=== PATIENT | female | born 1965 | race Caucasian/White ===

== ENCOUNTER 2020-02-29 12:47 | Outpatient (REF) | payer BC, SELFPAY ==
--- NOTE | 2020-02-29 | XR_ITS ---
EXAMINATION: XR SHOULDER, LEFT CLINICAL INFORMATION: Stiffness of left shoulder COMPARISON: None TECHNIQUE: 3 views of the left shoulder. FINDINGS: There is no visible acute fracture, dislocation or subluxation seen. There is a small calcified lesion tip of greater tuberosity likely small avulsion bony fragment, calcific tendinitis or bursitis. The AC joint is normal. XR/XR shoulder LT min 2V IMPRESSION: Tiny calcification tip of the left greater tuberosity. Differential diagnoses includes small bony avulsion fragment, calcific bursitis or tendinitis.
== END 2020-02-29 12:48 | disposition home or self-care (01) ==
LOC: HO.HMGCX 12:47
PROVIDERS: Visit Provider Physician Assistant
DX: M25.60 Stiffness of unspecified joint, not elsewhere classified (principal); M25.512 Pain in left shoulder
CPT/HCPCS: 73030

== ENCOUNTER 2020-07-19 11:36 | Emergency (ER) | payer BC, SELFPAY ==
--- NOTE | ~2020-07-19 | US_ITS ---
EXAMINATION: US VENOUS ULTRASOUND WITH DOPPLER LOWER EXTREMITY, RIGHT CLINICAL INFORMATION: Calf pain COMPARISON: None TECHNIQUE: Ultrasound of the deep veins is performed from the hip to the calf with compression sonography and color and pulse Doppler assessment. Spectral analysis with color-flow imaging is performed. FINDINGS: There is normal venous compression and respiratory variation and augmented flow. The visualized common femoral vein, superficial femoral vein, profunda femoral vein, popliteal vein, and the trifurcation region shows no evidence of deep venous thrombosis. There is no popliteal fossa cyst. US/US venous duplex LE RT IMPRESSION: No DVT demonstrated in the right lower extremity.
[2020-07-19 11:46] VITALS: BP 140/64; PULSE 85; RESP 17; TEMP 36.7; O2SAT 93; BMI 43.9
--- NOTE | 2020-07-19 13:13 | ED.EXTPRO ---
HPI - Extremity Problem General Chief complaint: Extremity Problem Stated complaint: Pain in right calf Time Seen by Provider: 07/19/20 11:41 History of Present Illness HPI Narrative: Patient complains of right lower leg pain when she was walking down stairs and felt a sudden pop and pain in her right lower posterior leg, no numbness no weakness no tingling no shortness of breath no other injury Related Data Home Medications Medication Instructions Recorded Confirmed albuterol sulfate 90 mcg/actuation 2 puff INHALATION Q6H PRN 02/29/20 aerosol inhaler Allergies Allergy/AdvReac Type Severity Reaction Status Date / Time monosodium glutamate Allergy Intermediate ITCHING/HEA Verified 07/19/20 11:45 DACHE Review of Systems Review of Systems: Positive for right lower leg pain Negatives are no fever no chills no dizziness no weakness no fainting no feeling faint no neck pain no chest pain no shortness of breath no abdominal pain no skin rash no numbness weakness or tingling Yes all other systems are reviewed and are negative PMFSH Past Medical History Source: nursing notes reviewed Social History Social History (System 06/29/20 @ 07:31 by Yolande Smith) Advance Directives: No Advance Directives Information Provided: No Physical Exam Vital Signs: Vital Signs: Last Vital Signs Temp 98.0 F 07/19/20 11:46 Pulse 85 07/19/20 11:46 Resp 17 07/19/20 11:46 BP 140/64 H 07/19/20 11:46 Pulse Ox 93 07/19/20 11:46 Body Mass Index 43.9 General appearance no acute distress Head is normocephalic atraumatic Neck is supple and nontender The chest is clear to auscultation bilateral with symmetric equal breath sounds Heart no murmur Abdomen soft nontender Extremities the right leg has tenderness to the posterior calf and posterior knee, skin is intact there is full range of motion in the knee and the ankle there is no significant swelling there is no redness or warmth and neurovascular intact distally Other extremities normal Skin no rash Neuro no gross motor or sensory deficits Course Course Course Narrative: Ultrasound of right lower extremity was done and there was no evidence of DVT or Brantley cyst and patient is discharged to follow with primary care doctor Discharge Plan Discharge Clinical Impression: Muscle strain of right lower leg Patient Disposition: Home, Self-Care Additional Instructions: Our ultrasound did not show any blood clot or any serious abnormality your exam does not show any wound or infection of the skin You very likely pulled a muscle in the back of her calf which will hurt for several weeks Activity as tolerated is fine Return any time any worse condition or any concerns Follow with her doctor if needed and they may send her to physical therapy Tylenol or Motrin for aches and pains Prescriptions: No Action albuterol sulfate [ProAir HFA] 90 mcg/actuation HFA aerosol inhaler 2 puff inhalation Q6H PRNRF: 0 Stand Alone Forms: Work/School Release Interventions: ED Discharge Assessment Last Done: 07/19/20 13:33 Discharge Date/Time: 07/19/20 13:34
== END 2020-07-19 13:34 | disposition home or self-care (01) ==
PROVIDERS: Emergency Provider Emergency Medicine
DX: M79.661 Pain in right lower leg (principal); R60.0 Localized edema
CPT/HCPCS: 93971; 99283

== ENCOUNTER 2020-10-29 10:28 | Emergency (ER) | payer BC, SELFPAY ==
--- NOTE | ~2020-10-29 | CT_ITS ---
EXAMINATION: CERVICAL SPINE CT WITHOUT CONTRAST CLINICAL INFORMATION: Atraumatic worsening neck pain. History of surgery COMPARISON: None. TECHNIQUE: Multidetector volumetric imaging was obtained through the cervical spine without intravenous contrast. Multiplanar reconstructed images in coronal and sagittal orientations were submitted. This CT examination was performed using dose optimization techniques as appropriate, variously including the following: *Automated exposure control *Adjustment of mA and/or kV according to patient size (this includes techniques or standardized protocols for targeted exams where dose is matched to indication/reason for exam; i.e. extremities or head) *Use of iterative reconstruction technique DOSE: 616 mGy-cm FINDINGS: Postsurgical changes of prior C3 C5 ACDF are apparent with solid osseous bridging at the C3-C4 level across the interbody space . Osseous bridging is also suspected at C4-C5. Hardware is intact. There is degenerative ankylosis of C6-C7. Moderate degenerative disc disease is present at C5-C6 with slight anterolisthesis of C5 on C6 (2 mm), likely degenerative in nature. A disco osteophytic bulge at the C5-C6 level is associated with a small left paracentral protrusion, likely producing mass effect upon the left C6 nerve root in this region. There is at least [id number] central canal stenosis at this level. No appreciable neural foraminal stenoses. Vertebral body heights are normal. No fractures of the vertebral bodies or posterior elements. No acute subluxation. The craniocervical and atlantoaxial articulations are normal. There is asymmetric enlargement of the right thyroid lobe with a poorly defined nodule posteriorly that likely measures 2.5 cm in greatest diameter. There is a peripherally calcified nodule in the right thyroid lobe measuring 1.5 cm in diameter. Imaged portions of the lung apices are clear. CT/CT cervical spine wo con IMPRESSION: Moderate degenerative disc disease at C5-C6 with grade 1 anterolisthesis of C5 on C6, a generalized disc bulge, and a left paracentral disc protrusion. The disc protrusion produces mass effect upon the left C6 nerve root. At least [id number]-in-aynovpzi central canal stenosis at this level. Solid osseous fusion at C3 C5 status post ACDF Asymmetric enlargement of the right thyroid lobe with a probable ill-defined 2.5 cm nodule along the margin. A clear fat plane is not seen between this portion of the thyroid in the adjacent esophagus. Follow-up assessment of the thyroid gland with ultrasound is advised.
--- NOTE | ~2020-10-29 | US_ITS ---
EXAMINATION: US THYROID CLINICAL INFORMATION: Thyroid nodule. COMPARISON: CT cervical spine from 10/29/2020. TECHNIQUE: Linear transducer grayscale and color Doppler examination with attention to the region of the thyroid. FINDINGS: SIZE: Measurements of the thyroid lobes and nodules are given in sagittal, anteroposterior and transverse dimensions respectively. Right Thyroid Lobe: 4.9 x 3.6 x 2.6 cm, volume 23.8 mL. Left Thyroid Lobe: 4.4 x 1.8 x 1.9 cm, volume 17.5 mL. Isthmus: 0.5 cm in maximum AP dimension. THYROID PARENCHYMA AND NODULES: Thyroid gland is heterogeneous on the right due to presence of nodules. Otherwise, the gland has normal echotexture and normal vascularity. 1.1 x 1 x 1.4 cm rim calcified, smoothly marginated nodule of the right mid to lower pole. ACR TI-RADS score of 4 points, TR4. 2 x 1.9 x 2.2 cm solid, isoechoic, smoothly marginated noncalcified nodule of the right lower pole has ACR TI-RADS score of 3 points, TR3. An adjacent 1.4 x 1.4 x 1.2 cm isoechoic nodule in the posterior lower pole has ACR TI-RADS score of 3 points, TR3. NODES: No lymphadenopathy is seen in the tissue surrounding the thyroid gland. US/US thyroid IMPRESSION: There are a few nodules in the large right thyroid lobe for which ultrasound follow-up in 12 months is recommended.
[2020-10-29 11:38] VITALS: BP 145/83; PULSE 104; RESP 17; TEMP 37.2; O2SAT 95; BMI 44.5
[2020-10-29] MEDS: NaPROXEN 500 MG TABLET PO (12:43)
[2020-10-29] MEDS: diazePAM 5 MG TABLET PO (12:44)
--- NOTE | 2020-10-29 14:07 | ED.NECK ---
HPI - Neck Pain/Injury General Chief Complaint: General Medical Stated Complaint: diff breathing due to neck issue? Time Seen by Provider: 10/29/20 11:41 Source: patient Mode of arrival: ambulatory Limitations: no limitations History of Present Illness HPI Narrative: 55-year-old female with a history of cervical disc disease, status post C3-4-5 discectomy and fusion in 10/2007 presenting to the ED with complaints of acute on chronic neck pain radiating down to her upper back that started while she was finish passing her meds at work. 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 She reports she also feels like her neck is swollen. She denies any falls, trauma, dizziness, headaches, dizziness, change in vision, nausea/vomiting, chest pain, dyspnea on exertion, orthopnea, paresthesias, abdominal pain, lower back pain, dysuria, hematuria, black or bloody stools, constipation, recent travel or sick contacts, any focal weakness or general weakness or any other symptoms complaints or concerns at this time. 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 Radiation: upper back Severity: moderate and constant Quality: aching Duration: constant and progressively worsening Relieving factors: none Exacerbating factors: movement of neck Context: turning/bending Associated symptoms: none Treatments prior to arrival: none Related Data Home Medications Medication Instructions Recorded Confirmed albuterol sulfate 90 mcg/actuation 2 puff INHALATION Q6H PRN 02/29/20 aerosol inhaler (ProAir HFA) Previous Rx's Medication Instructions Recorded acetaminophen 500 mg tablet 1,000 mg PO QID PRN #14 tab 10/29/20 (Tylenol Extra Strength) diazepam 10 mg tablet (Valium) 10 mg PO TID PRN #10 tab 10/29/20 naproxen 500 mg tablet 500 mg PO BID PRN #10 tab 10/29/20 oxycodone 5 mg tablet 5 mg PO Q6H PRN #14 tab 10/29/20 Allergies Allergy/AdvReac Type Severity Reaction Status Date / Time monosodium glutamate Allergy Intermediate ITCHING/HEA Verified 07/19/20 11:45 DACHE Review of Systems Review of Systems: Constitutional : No trauma, No Weight loss, No Fever, No Chills, ENT/Mouth : No Hearing loss, No Ear Pain, No Nasal Congestion, No Sinus Pain, No Hoarseness, No sore throat, No Rhinorrhea, No Swallowing Difficulty Cardiovascular : No Chest Pain, No SOB Respiratory : No Cough, No Dyspnea Gastrointestinal : No Nausea, No Vomiting, No Diarrhea, No abdominal Pain, No Hematochezia, No Melena Genitourinary : No Dysuria, No Urinary Frequency, No Hematuria, No Urinary or Bowel Incontinence/retention Musculoskeletal : + Neck pain, No Back pain, No joint stiffness, No joint swelling Skin : No Skin Lesions, No rash or signs of infection Neuro : nO Tingling to b/l arms/legs, No Weakness, No radiation, No Numbness, No headache, no loss of bowel or bladder incontinence, no saddle anesthesia Denies history of IV drug usage. Yes all other systems are reviewed and are negative [facility] Past Medical History Attestation statement: The following information was validated with the patient. Social History Social History Advance Directives: No Advance Directives Information Provided: No Physical Exam Vital Signs: Vital Signs: Last Vital Signs Temp 98.0 F 10/29/20 14:38 Pulse 75 10/29/20 14:38 Resp 20 10/29/20 14:38 BP 147/69 H 10/29/20 14:38 Pulse Ox 97 10/29/20 14:38 Body Mass Index 44.5 vital signs have been reviewed as normal and appeared to be correct. Blood pressure hypertensive 145/83 Heart rate tachycardic at 104 Respiration rate normal. Temperature normal. Oxygen saturation normal. Appearance: Alert. Oriented X3. No acute distress. Head: Normal external exam. Normocephalic. Atraumatic. Eyes: PERRLA. EOMI. Conjunctiva and sclera normal. Eyelids normal. ENT: Pharynx normal. Uvula midline. Moist mucous membranes. No trismus noted. No drooling noted. No muffled voice noted. Neck: Normal inspection. Neck supple. FROM. No adenopathy. Thyroid Normal. Trachea midline. No meningeal signs. No neck mass noted. Tender to palpation of bilateral paracervical musculature and mid cervical tenderness. No step-offs or deformities noted. Patient neuro intact bilaterally and distally on all 4 extremities. Reflexes intact bilaterally and distally in all 4 extremities. No rashes/lesion/induration/fluctuance or signs of infection noted. No edema noted. CVS: Normal heart rate and rhythm. Heart sound normal. No murmurs noted. Pulses normal throughout. Respiratory: No respiratory distress. Painless inspiration. Breath sounds normal. No wheezes/rales/rhonchi noted. Chest nontender. No accessory muscle usage noted or decreased air movement noted. Back: Full range of motion noted. No obvious deformities, or edema. Full ROM in back and lower extremities. Skin: Skin warm and dry. Normal skin color. Normal skin turgor. No rashes/lesions/lacerations noted. Extremities: Extremities exhibit normal range of motion. Extremities nontender. Neuro: Oriented X 3. No motor deficit. No sensory deficit. Reflexes normal. Normal steady gait. Course Course Course Narrative: 12:15pm - Pt c likely muscular pain, but could be herniated disc. Neuro exam shows no deficits. Not c/w vascular etiology, perivertebral / other soft tissue neck / airway infection, or spinal fx / process. Although due to patient reporting that this is acute on chronic back pain will obtain a CT scan of cervical spine to evaluate for any acute processes. MRI not indicated at this time due to no neural deficits or red flags. Will provide 500 mg of naproxen and 5 mg of Valium then re-evaluate. Reevaluation(s) Reevaluation #1: - patient ended up having a CT scan of cervical spine which revealed chronic changes to her cervical spine no acute processes were noted to the cervical spine although incidentally a right thyroid lobe with a probable 2.5 cm nodule along the margin was noted and they recommended an ultrasound of her thyroid gland - therefore labs were obtained at this time and patient has an elevated white blood cell count 06408. RBC 6.15. Hemoglobin 18. Hematocrit 53. 32. Random glucose 164. Total bilirubin 1.1. Otherwise all other labs are within normal limits including TSH level. - thyroid ultrasound obtained and revealed that there are a few nodules and the large right thyroid lobe for which ultrasound follow-up in 12 months is recommended otherwise no other acute processes were noted. Therefore printed out the results of the CT scan of the cervical spine and the ultrasound of the thyroid and handed to the patient instructed her that she will need to follow up with her primary care provider regarding this. Otherwise will DC home with symptomatic treatment for the patient's acute on chronic neck pain and instructions return if any new or worsening symptoms. Patient understands agrees with this plan. Time: 16:42 [facility] - Neck Pain/Injury Medical Records Attestation: I reviewed the patient's medical records. Lab Data Attestation: I reviewed the patient's lab results. Result diagrams: 10/29/20 15:36 10/29/20 15:36 Labs: Lab Results 10/29/20 10/29/20 10/29/20 Range/Units 15:36 15:36 15:36 WBC 11.1 H (4.8-10.8) X10*3/uL RBC 6.15 H (4.20-5.50) X10*6/uL Hgb 18.0 H (12.0-16.0) g/dl Hct 53.7 H (37-47) % MCV 87.3 (80-98) fL MCH 29.3 (27.0-33.0) pg MCHC 33.5 (31.0-35.0) g/dl RDW 12.5 (11.0-16.0) % Plt Count 257 (160-400) X10*3/uL MPV 9.2 L (9.4-12.3) fL Immature Gran % (Auto) 0.4 (0.0-0.4) % Neut % (Auto) 60.5 (45-73) % Lymph % (Auto) 31.9 (20-40) % Ransom % (Auto) 5.8 (2-11) % Eos % (Auto) 0.9 (0-4) % Baso % (Auto) 0.5 (0-2) % Lymph # (Auto) 3.5 (1.2-4.9) X10*3/uL Ransom # (Auto) 0.6 (0.1-1.2) X10*3/uL Eos # (Auto) 0.1 (0.0-0.4) X10*3/uL Baso # (Auto) 0.1 (0.0-0.2) X10*3/uL Abs Immat Gran (auto) 0.04 H (0.00-0.03) X10*3/uL Absolute Neuts (auto) 6.7 (2.0-8.3) X10*3/uL Absolute Nucleated RBC 0.000 (0.0-0.012) X10*3/uL Nucleated RBC % (auto) 0.0 (0.0-0.2) /100WBC PT 11.0 (9.9-13.0) SEC INR 1.0 (0.9-1.1) Sodium 142 (135-145) mmol/L Potassium 3.9 (3.3-5.1) mmol/L Chloride 100 (96-108) mmol/L Carbon Dioxide 32 H (22-29) mmol/L Anion Gap 14 (12-20) BUN 11 (9-16) mg/dL Creatinine 0.79 (0.5-1.4) mg/dL Estim Creat Clear Calc 80.2 Estimated GFR > 60 Random Glucose 164 H (60-115) mg/dL Calcium 10.0 (8.4-10.2) mg/dL Magnesium 1.7 (1.6-2.6) mg/dL Total Bilirubin 1.1 H (0.0-1.0) mg/dL AST 14 (5-31) U/L ALT 22 (0-31) U/L Alkaline Phosphatase 95 (39-117) U/L Total Protein 7.3 (6.5-8.0) g/dL Albumin 4.5 (3.5-5.0) g/dL TSH 1.25 (0.32-4.0) uIU/mL Imaging Data CT scan of cervical spine without contrast: Attestation: I personally reviewed and interpreted this imaging study as follows: Radiologist's impression: FINDINGS: Postsurgical changes of prior C3 C5 ACDF are apparent with solid osseous bridging at the C3-C4 level across the interbody space . Osseous bridging is also suspected at C4-C5. Hardware is intact. There is degenerative ankylosis of C6-C7. Moderate degenerative disc disease is present at C5-C6 with slight anterolisthesis of C5 on C6 (2 mm), likely degenerative in nature. A disco osteophytic bulge at the C5-C6 level is associated with a small left paracentral protrusion, likely producing mass effect upon the left C6 nerve root in this region. There is at least [id number] central canal stenosis at this level. No appreciable neural foraminal stenoses. Vertebral body heights are normal. No fractures of the vertebral bodies or posterior elements. No acute subluxation. The craniocervical and atlantoaxial articulations are normal. There is asymmetric enlargement of the right thyroid lobe with a poorly defined nodule posteriorly that likely measures 2.5 cm in greatest diameter. There is a peripherally calcified nodule in the right thyroid lobe measuring 1.5 cm in diameter. Imaged portions of the lung apices are clear. CT/CT cervical spine wo con IMPRESSION: Moderate degenerative disc disease at C5-C6 with grade 1 anterolisthesis of C5 on C6, a generalized disc bulge, and a left paracentral disc protrusion. The disc protrusion produces mass effect upon the left C6 nerve root. At least [id number] central canal stenosis at this level. ? Solid osseous fusion at C3 C5 status post ACDF ? Asymmetric enlargement of the right thyroid lobe with a probable ill-defined 2.5 cm nodule along the margin. A clear fat plane is not seen between this portion of the thyroid in the adjacent esophagus. Follow-up assessment of the thyroid gland with ultrasound is advised. Thyroid ultrasound: Attestation: I personally reviewed and interpreted this imaging study as follows: Radiologist's impression: FINDINGS: ? SIZE: Measurements of the thyroid lobes and nodules are given in sagittal, anteroposterior and transverse dimensions respectively. Right Thyroid Lobe: 4.9 x 3.6 x 2.6 cm, volume 23.8 mL. Left Thyroid Lobe: 4.4 x 1.8 x 1.9 cm, volume 17.5 mL. Isthmus: 0.5 cm in maximum AP dimension. THYROID PARENCHYMA AND NODULES: Thyroid gland is heterogeneous on the right due to presence of nodules. Otherwise, the gland has normal echotexture and normal vascularity. 1.1 x 1 x 1.4 cm rim calcified, smoothly marginated nodule of the right mid to lower pole. ACR TI-RADS score of 4 points, TR4. 2 x 1.9 x 2.2 cm solid, isoechoic, smoothly marginated noncalcified nodule of the right lower pole has ACR TI-RADS score of 3 points, TR3. An adjacent 1.4 x 1.4 x 1.2 cm isoechoic nodule in the posterior lower pole has ACR TI-RADS score of 3 points, TR3. NODES: No lymphadenopathy is seen in the tissue surrounding the thyroid gland. US/US thyroid IMPRESSION: There are a few nodules in the large right thyroid lobe for which ultrasound follow-up in 12 months is recommended. ? ? Discharge Plan Discharge Clinical Impression: Right thyroid nodule, DDD (degenerative disc disease), cervical, Anterolisthesis, Bulging discs Patient Disposition: Home, Self-Care Instructions: Thyroid Nodules (ED), Cervical Disc Herniation (ED), Degenerative Disc Disease (ED), Chronic Neck Pain (DC) Prescriptions: New acetaminophen [Tylenol Extra Strength] 500 mg tablet 1,000 mg PO QID PRN (Reason: fever or pain) Qty: 14 RF: 0 diazepam [Valium] 10 mg tablet 10 mg PO TID PRN (Reason: muscle spasm) Qty: 10 RF: 0 naproxen 500 mg tablet 500 mg PO BID PRN (Reason: pain) Qty: 10 RF: 0 oxycodone 5 mg tablet 5 mg PO Q6H PRN (Reason: pain) Qty: 14 RF: 0 No Action albuterol sulfate [ProAir HFA] 90 mcg/actuation HFA aerosol inhaler 2 puff inhalation Q6H PRNRF: 0 Referrals: Graciela Mg MD [Primary Care Provider] - 2 days Stand Alone Forms: Work/School Release Print Language: Kosovan
[2020-10-29 14:38] VITALS: BP 147/69; PULSE 75; RESP 20; TEMP 36.7; O2SAT 97
[2020-10-29 15:58] LABS: MANUAL DIFF FLAG NO
[2020-10-29 15:59] LABS: Basophils Absolute Auto 0.1 X10*3/uL (0.0-0.2); Basophils Percent Auto 0.5 % (0-2); Eosinophils Absolute Auto 0.1 X10*3/uL (0.0-0.4); Eosinophils Percent Auto 0.9 % (0-4); Hematocrit 53.7 % (37-47); Imm Gran Abs Auto 0.04 X10*3/uL (0.00-0.03); Imm Gran Pct Auto 0.4 % (0.0-0.4); Lymphocytes Absolute Auto 3.5 X10*3/uL (1.2-4.9); Lymphocytes Percent Auto 31.9 % (20-40); Mean Corpuscular HGB Conc 33.5 g/dl (31.0-35.0); Mean Corpuscular Hemoglobin 29.3 pg (27.0-33.0); Mean Corpuscular Volume 87.3 fL (80-98); Mean Platelet Volume 9.2 fL (9.4-12.3); Monocytes Absolute Auto 0.6 X10*3/uL (0.1-1.2); Monocytes Percent Auto 5.8 % (2-11); Neutrophils Absolute Auto 6.7 X10*3/uL (2.0-8.3); Neutrophils Percent Auto 60.5 % (45-73); Platelet Count 257 X10*3/uL (160-400); Red Blood Count 6.15 X10*6/uL (4.20-5.50); Red Cell Distribution Width 12.5 % (11.0-16.0); White Blood Count 11.1 X10*3/uL (4.8-10.8)
[2020-10-29 16:19] LABS: Alanine Aminotransferase 22 U/L (0-31); Albumin Level 4.5 g/dL (3.5-5.0); Alkaline Phosphatase 95 U/L (39-117); Anion Gap 14 (12-20); Aspartate Amino Transferase 14 U/L (5-31); Bilirubin Total 1.1 mg/dL (0.0-1.0); Blood Urea Nitrogen 11 mg/dL (9-16); Carbon Dioxide 32 mmol/L (22-29); Chloride 100 mmol/L (96-108); Creatinine Clr Calc Pharmacy 80.2; Estimated Glomerular Filt Rate > 60; Glucose Random 164 mg/dL (60-115); Magnesium 1.7 mg/dL (1.6-2.6); Potassium 3.9 mmol/L (3.3-5.1); Sodium 142 mmol/L (135-145); Total Protein 7.3 g/dL (6.5-8.0)
[2020-10-29 16:41] LABS: TSH reflex Free T4 1.25 uIU/mL (0.32-4.0)
[2020-10-29] MEDS: oxyCODONE HCl Immed Release 5 MG TABLET PO (17:19)
--- NOTE | 2020-10-29 17:20 | PC.NURSE ---
Pt had ride home. Medicated for pain and discharged home.
== END 2020-10-29 17:21 | disposition home or self-care (01) ==
PROVIDERS: Physician Assistant Medical; Emergency Provider Emergency Medicine; PCP Internal Medicine
DX: M50.323 Other cervical disc degeneration at C6-C7 level (principal); M50.222 Other cervical disc displacement at C5-C6 level; E04.2 Nontoxic multinodular goiter; Z98.890 Other specified postprocedural states; E11.9 Type 2 diabetes mellitus without complications; I10 Essential (primary) hypertension; F17.210 Nicotine dependence, cigarettes, uncomplicated
CPT/HCPCS: 36415; 72125; 76536; 80053; 83735; 84443; 85025; 85610; 99284

== ENCOUNTER 2020-11-02 08:51 | Outpatient (REF) | payer BC, SELFPAY ==
[2020-11-02 12:03] LABS: Alanine Aminotransferase 20 U/L (0-31); Albumin Level 4.5 g/dL (3.5-5.0); Alkaline Phosphatase 94 U/L (39-117); Anion Gap 18 (12-20); Aspartate Amino Transferase 16 U/L (5-31); Blood Urea Nitrogen 11 mg/dL (9-16); Calcium 9.9 mg/dL (8.4-10.2); Carbon Dioxide 27 mmol/L (22-29); Chloride 98 mmol/L (96-108); Cholesterol 217 mg/dL; Estimated Glomerular Filt Rate > 60; Glucose Fasting 231 mg/dL (60-99); HDL Cholesterol 56 mg/dL; Iron 124 mcg/dL (30-160); LDL Cholesterol Calculated 140 mg/dl; Percent Iron Saturation 35 % (15-50); Potassium 4.6 mmol/L (3.3-5.1); Sodium 138 mmol/L (135-145); Total Iron Binding Capacity 358 mcg/dL (228-428); Total Protein 7.1 g/dL (6.5-8.0); Triglycerides 107 mg/dL; Unsaturated Iron Binding 234 ug/dL
[2020-11-02 12:59] LABS: Estimated Average Glucose 217 mg/dL; Hemoglobin A1c % 9.2 %
== END 2020-11-02 08:52 | disposition home or self-care (01) ==
LOC: HO.HMGCLDS 08:51
PROVIDERS: PCP Internal Medicine; Visit Provider Internal Medicine
DX: R73.9 Hyperglycemia, unspecified (principal); D75.1 Secondary polycythemia
CPT/HCPCS: 36415; 80053; 80061; 83036; 83540

== ENCOUNTER 2020-11-18 15:28 | Outpatient (REF) | payer BC, SELFPAY ==
--- NOTE | ~2020-11-18 | CT_ITS ---
EXAMINATION: CT CHEST SCREENING CLINICAL INFORMATION: Current smoker. [id number]-[id number] history. COMPARISON: Previous chest x-rays most recent June 2019 TECHNIQUE: Multidetector volumetric CT imaging of the chest is performed without contrast using low-dose technique. Additional 2-D coronal and sagittal reformatted images and axial 3-D maximum intensity projection (MIP) images are generated on the CT workstation. This CT examination was performed using dose optimization techniques as appropriate, variously including the following: *Automated exposure control *Adjustment of mA and/or kV according to patient size (this includes techniques or standardized protocols for targeted exams where dose is matched to indication/reason for exam; i.e. extremities or head) *Use of iterative reconstruction technique DLP: 94 mGy-cm FINDINGS: LUNGS: There is a tiny 1-2 mm peripheral or subpleural right upper lobe nodule axial image 122 series 6 and right lower lobe nodule adjacent to the diaphragmatic pleural surface axial image 332 series 6. There is scarring or subsegmental atelectasis in the right middle lobe and lingula. The lungs are otherwise clear. No evidence of emphysema, interstitial lung disease or bronchiectasis is seen. No endobronchial or endotracheal lesion is seen. MEDIASTINUM: There is a subcentimeter right thyroid nodule with calcified wall. The mediastinum is otherwise normal. PLEURA: There is no pleural effusion. No pleural mass or thickening. AXILLA: No lymphadenopathy. UPPER ABDOMEN: Unremarkable. OSSEOUS STRUCTURES: Unremarkable. CT/CT lung screening IMPRESSION: Small pulmonary nodules or micronodules. Small right thyroid nodule with wall calcification. No imaging followup is indicated. ASSESSMENT: Lung-RADS category 2: Benign. RECOMMENDATION: Annual low-dose chest CT followup recommended.
== END 2020-11-18 15:29 | disposition home or self-care (01) ==
LOC: HO.CT 15:28
PROVIDERS: Visit Provider Surgery
DX: Z12.2 Encounter for screening for malignant neoplasm of respiratory organs (principal); F17.210 Nicotine dependence, cigarettes, uncomplicated
CPT/HCPCS: 71271; G0296

== ENCOUNTER 2020-12-20 08:41 | Outpatient (REF) | payer BC, SELFPAY ==
--- NOTE | ~2020-12-20 | MM_ITS ---
EXAMINATION: MM SCREENING DIGITAL BREAST TOMOSYNTHESIS, BILATERAL CLINICAL INFORMATION: Screening. Asymptomatic. The lifetime risk of breast cancer based on the Tyrer-Cuzick Model is 5%. COMPARISON: Mammography: 03/22/2015, 03/12/2014 TECHNIQUE: Digital breast tomosynthesis is performed in both the craniocaudal and mediolateral oblique views along with computer-aided detection (CAD). Synthesized 2D images are generated from the tomosynthesis. FINDINGS: There are scattered areas of fibroglandular density (ACR BI-RADS breast composition Category b). There are no significant masses, abnormal calcifications, or other abnormalities. There is fine fibronodular parenchymal pattern similar to prior studies. No significant changes. MM/MM tomosynthesis screening BI IMPRESSION: No mammographic evidence of malignancy. ASSESSMENT: BI-RADS 1: Negative RECOMMENDATION: Routine annual mammography screening. This patient's information was entered into a reminder system with a target due date for their next mammogram.
== END 2020-12-20 08:42 | disposition home or self-care (01) ==
LOC: HO.MAMMO 08:41
PROVIDERS: Visit Provider Internal Medicine
DX: Z12.31 Encounter for screening mammogram for malignant neoplasm of breast (principal)
CPT/HCPCS: 77063; 77067

== ENCOUNTER 2021-02-20 07:13 | Outpatient (REF) | payer BC, SELFPAY ==
[2021-02-20 11:36] LABS: Estimated Average Glucose 131 mg/dL; Hemoglobin A1c % 6.2 %
[2021-02-20 11:38] LABS: Creatinine Urine 32.38 mg/dL; Microalbum/Creatinine Ratio Ur 382.9 ug/mg cr
[2021-02-20 12:01] LABS: Alanine Aminotransferase 22 U/L (0-31); Albumin Level 4.6 g/dL (3.5-5.0); Alkaline Phosphatase 75 U/L (39-117); Anion Gap 15 (12-20); Aspartate Amino Transferase 15 U/L (5-31); Bilirubin Total 0.9 mg/dL (0.0-1.0); Blood Urea Nitrogen 15 mg/dL (9-16); Calcium 9.9 mg/dL (8.4-10.2); Carbon Dioxide 27 mmol/L (22-29); Chloride 103 mmol/L (96-108); Cholesterol 184 mg/dL; Estimated Glomerular Filt Rate > 60; Glucose Fasting 128 mg/dL (60-99); HDL Cholesterol 41 mg/dL; LDL Cholesterol Calculated 115 mg/dl; Potassium 4.5 mmol/L (3.3-5.1); Sodium 140 mmol/L (135-145); Total Protein 7.4 g/dL (6.5-8.0); Triglycerides 144 mg/dL
[2021-02-20 12:20] LABS: TSH reflex Free T4 1.26 uIU/mL (0.32-4.0)
== END 2021-02-20 07:14 | disposition home or self-care (01) ==
LOC: HO.HMGCLDS 07:13
PROVIDERS: PCP Internal Medicine; Visit Provider Internal Medicine
DX: E11.9 Type 2 diabetes mellitus without complications (principal); M47.812 Spondylosis without myelopathy or radiculopathy, cervical region; I10 Essential (primary) hypertension; E66.9 Obesity, unspecified; E04.1 Nontoxic single thyroid nodule
CPT/HCPCS: 36415; 80053; 80061; 82043; 83036; 84443

== ENCOUNTER → 2021-03-07 10:41 | Outpatient (REF) | payer BC, SELFPAY | LOC: HO.SL 10:41 | PROVIDERS: PCP Internal Medicine; Visit Provider Neurological Surgery | DX: G47.33 Obstructive sleep apnea (adult) (pediatric) (principal) | CPT/HCPCS: 95806 ==

== ENCOUNTER 2021-04-17 09:06 | Outpatient (REF) | payer BC, SELFPAY ==
--- NOTE | ~2021-04-17 | XR_ITS ---
EXAMINATION: XR HAND, RIGHT CLINICAL INFORMATION: Osteoarthritis COMPARISON: None TECHNIQUE: PA, lateral, and oblique views of the right hand. FINDINGS: Ulna negative variance. Mild distal radioulnar joint arthritis. Mild arthritis in some of the interphalangeal joints of the fingers, more prominent in the fifth PIP joint. Small calcification/ossification along the ulnar aspect of the fourth proximal phalanx head, appears chronic. No acute fracture is otherwise seen. XR/XR hand RT min 3V IMPRESSION: Mild arthritis. This includes mild distal radioulnar joint arthritis. See details above.
== END 2021-04-17 09:07 | disposition home or self-care (01) ==
LOC: HO.HMGCX 09:06
PROVIDERS: Visit Provider Internal Medicine
DX: M19.042 Primary osteoarthritis, left hand (principal)
CPT/HCPCS: 73130

== ENCOUNTER 2021-05-11 09:00 | Outpatient (RCR) | payer BC, SELFPAY ==
--- NOTE | 2021-03-10 12:35 | MHC.PT.EP ---
[facility] [place] Office [place] Office [place] Office [address] Elise Blanton [address] [phone] F: [phone] F: [phone] F: [phone] F: [phone] Physical Therapy Plan of Care Date of Evaluation: Date of Surgery: Diagnosis: cervical spondylosis Assessment: Patient is a 55 year old R handed female who presents with s/s consistent with cervical spondylosis. 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 Patient past medical history includes ACDF and DM. Current impairments include pain, posture, ROM, strength, activity tolerance and functional mobility. Functional limitations include decreased ability to sleep, lift, carry, push, pull, reach overhead, and work nursing duties. Patient is motivated with good rehab potential. Skilled PT will address impairments and functional limitations in order to achieve goals. Frequency and Duration: The patient will be seen 2x/week for 4 weeks Short Term Goals: I with HEP - 2 weeks Able to sleep, wake up with less than 3/10 pain - 2 weeks Vulcanized Fiber Unit Operator Goals: Rotation > 45 to R, 55 to L - 4 weeks MT/LT strength 4/5 grossly - 4 weeks min pec tightness - 4 weeks ER strength 4-/5 b/l - 4 weeks NPDI 16% or better - 4 weeks Treatment Plan: Modalities to reduce pain, spasms and effusion. Manual therapy to restore motion and function. Therapeutic exercise to improve strength and flexibility. Neuromuscular re-education for posture and balance. Therapeutic activities to return to functional activities of daily living. Electronically signed by: Adrian Chery, PT Please sign and return to therapist. Thank you for your referral.
--- NOTE | 2021-11-09 08:30 | MHC.PT.DC ---
[facility] [place] Office [place] Office [place] Office [address] Elise Blanton [address] [phone] F: [phone] F: [phone] F: [phone] F: [phone] Physical Therapy Discharge Report Diagnosis: cervical spondylosis Date of Surgery: Date of Evaluation: 03/10/21 Date of Discharge: 06/03/21 Treatments to Date: 9 Cancellations to Date: 0 No Shows to Date: 0 Discharge Status: Improved Function Independent with HEP Discharge Summary: 05/11/21: pt progressed over the course of skilled PT with less s/s and improved ROM. she is I with HEP. less cervical pain (3/10) with sleep. min pec tightness and ER strength is 4-/5 b/l. She is I with HEP and appropriate to d/c to HEP at this time. I will keep her chart open for 30 days barring any setbacks we will officially d/c it at that time 05/05/21: increased s/s at this time. but starting meloxicam again yesterday. we will monitor this as we tentatively plan for d/c next week. 04/28/21: pt with much less s/s overall, improving ability to manage s/s. compliant with HEP. we will plan to d/c to HEP in 2 visits barring any setbacks. 04/21/21: pt with less pain overall. notes x-rays on hand show OA. progressed with UBE with no adverse reactions. 04/13/21: pt progressing well except for R hand, decreased strength and performance of fine motor skills. but improved tissue elasticity and reduced tissue tension of b/l LS and UT 04/07/21: slow progress thus far in PT. Improved AROM rotation but goals not met. we will continue to progress as tolerated with respect to co-morbidities and thumb pain. 03/29/21: pt noting passing of sister yesterday. She was somewhat stressed and distant during exercise. We held on progression. Reviwed HEP. 03/27/21: pt progressing well with skilled PT. added some postural stretching and educated on postural concepts with PT ex. updated HEP. 03/15/21: pt with min s/s to finish but she did have PACE yesterday. we updated HEP and will continue to monitor response to intervention. Patient is a 55 year old R handed female who presents with s/s consistent with cervical spondylosis. 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 Patient past medical history includes ACDF and DM. Current impairments include pain, posture, ROM, strength, activity tolerance and functional mobility. Functional limitations include decreased ability to sleep, lift, carry, push, pull, reach overhead, and work nursing duties. Patient is motivated with good rehab potential. Skilled PT will address impairments and functional limitations in order to achieve goals. Electronically signed by: Adrian Chery, PT Please sign and return to therapist. Thank you for your referral.
== END 2021-11-17 13:06 | disposition home or self-care (01) ==
LOC: HO.PTCHIC 09:00
PROVIDERS: PCP Internal Medicine; Visit Provider Internal Medicine
DX: M47.812 Spondylosis without myelopathy or radiculopathy, cervical region (principal)
CPT/HCPCS: 97110; 97140; 97162

== ENCOUNTER 2021-05-16 06:39 | Outpatient (REF) | payer BC, SELFPAY ==
[2021-05-16 12:02] LABS: Alanine Aminotransferase 17 U/L (0-31); Albumin Level 4.4 g/dL (3.5-5.0); Alkaline Phosphatase 73 U/L (39-117); Anion Gap 14 (12-20); Aspartate Amino Transferase 15 U/L (5-31); Bilirubin Total 0.8 mg/dL (0.0-1.0); Blood Urea Nitrogen 16 mg/dL (9-16); Calcium 9.8 mg/dL (8.4-10.2); Carbon Dioxide 28 mmol/L (22-29); Chloride 104 mmol/L (96-108); Cholesterol 169 mg/dL; Estimated Glomerular Filt Rate > 60; Glucose Fasting 105 mg/dL (60-99); HDL Cholesterol 43 mg/dL; LDL Cholesterol Calculated 108 mg/dl; Potassium 4.9 mmol/L (3.3-5.1); Sodium 141 mmol/L (135-145); Total Protein 7.1 g/dL (6.5-8.0); Triglycerides 94 mg/dL
[2021-05-16 12:13] LABS: Estimated Average Glucose 108 mg/dL; Hemoglobin A1C 149.6307 umol/L; Hemoglobin A1c % 5.4 %
[2021-05-16 12:18] LABS: Microalbum/Creatinine Ratio Ur 379.7 ug/mg cr
[2021-05-16 12:41] LABS: Erythrocyte Sedimentation Rate 6 MM/HR (0-20)
== END 2021-05-16 06:40 | disposition home or self-care (01) ==
LOC: HO.HMGCLDS 06:39
PROVIDERS: Visit Provider Internal Medicine
DX: E11.65 Type 2 diabetes mellitus with hyperglycemia (principal); M19.042 Primary osteoarthritis, left hand
CPT/HCPCS: 36415; 80053; 80061; 82043; 83036; 85652

== ENCOUNTER → 2021-06-07 12:02 | Outpatient (BNVA) | payer BC, SELFPAY | PROVIDERS: PCP Internal Medicine; Visit Provider Physician Assistant | DX: Z13.89 Encounter for screening for other disorder (principal) ==

== ENCOUNTER 2021-06-14 08:50 | Outpatient (REF) | payer BC, SELFPAY ==
--- NOTE | ~2021-06-14 | US_ITS ---
EXAMINATION: US THYROID CLINICAL INFORMATION: Nontoxic single thyroid nodule. COMPARISON: Ultrasound soft tissue head/neck thyroid dated 10/29/[address] October 2020. TECHNIQUE: Linear transducer grayscale and color Doppler examination with attention to the region of the thyroid. FINDINGS: SIZE: Measurements of the thyroid lobes and nodules are given in sagittal, anteroposterior and transverse dimensions respectively. The right lobe and isthmus are enlarged. The left lobe is upper normal in size. Right Thyroid Lobe: 5.60 x 4.21 x 2.51 cm, volume 31.1 mL. Previously 4.91 x 3.55 x 2.61 cm, volume 23.8 mL. Parenchyma: The gland echotexture is heterogeneous. Thyroid vascularity is normal. Left Thyroid Lobe: 5.09 x 2.19 x 1.64 cm, volume 9.57 mL. Previously 4.38 x 1.77 x 1.86 cm, volume 7.52 mL. Parenchyma: The gland echotexture is homogeneous. Thyroid vascularity is normal. Isthmus: 0.80 cm in maximum AP dimension. Previously 0.47 cm. Estimated total number of nodules greater than or equal to 1 cm: 3. Examiner Rating Clerk nodules are described as follows: 1. Location: Right mid. Size: 3.4 x 2.0 x 2.2 cm, volume 7.8 mL. Previously: Previously measured as 2 nodules measuring 1.1 x 1 x 1.5 cm in 2 x 1.9 x 2.2 cm Nodule characteristics: Composition: Solid (2). Echogenicity: Hyperechoic (1). Shape: Not taller than wide (0). Margins: Smooth (0). Echogenic Foci: None (0). ACR TI-RADS total points: 3 ACR TI-RADS category: 3 2. Location: Right inferior. Size: 1.4 x 1.1 x 1.3 cm, volume 1.0 mL. Previously: 1.1 x 1.0 x 1.45 cm, volume 0.84 mL. Nodule characteristics: Composition: Cannot be determined (2). Echogenicity: Cannot be determined (1). Shape: Not taller than wide (0). Margins: Smooth (0). Echogenic Foci: Peripheral calcifications (2). ACR TI-RADS total points: 5 Previous: 7 ACR TI-RADS category: 4 Previous: 5 Significant change in size (>/= 20% in 2 dimensions and minimal increase of 2 mm or 50% or greater increase in volume): Change in features: Change in ACR TI-RADS risk category: 3. Location: Left inferior question newly appreciated nodule versus area of gland heterogeneity.. Size: 0.93 x 1.1 x 0.78 cm, volume 0.42 mL. Previously: Not seen on the previous study. Nodule characteristics: Composition: Solid (2). Echogenicity: Hypoechoic (2). Shape: Taller than wide (3). Margins: Smooth (0). Echogenic Foci: None (0). ACR TI-RADS total points: 7 ACR TI-RADS category: 5 NODES: No lymphadenopathy is seen in the tissue surrounding the thyroid gland. US/US thyroid IMPRESSION: Enlarged heterogeneous right lobe and isthmus. Stable right thyroid nodules. Question newly appreciated left nodule versus area of gland heterogeneity. Continued ultrasound follow-up recommended. ACR TI-RADS RECOMMENDATION REFERENCE: Ultrasound-guided fine-needle aspiration, followup ultrasound, no further follow up. * TR1 (0 point) and TR 2 (2 points): No FNA or follow up * TR3 (3 points): FNA if more than or equal to 2.5 cm in maximum dimension, followup ultrasound in 1, 3 and 5 years if 1.5 to 2.4 cm in maximum dimension. * TR4 (4-6 points): FNA if more than or equal to 1.5 cm in maximum dimension, followup ultrasound in 1, 2, 3 and 5 years if 1 to 1.4 cm in maximum dimension. * TR5 (more than or equal to 7 points): FNA if more than or equal to 1 cm in maximum dimension, followup ultrasound every year for 5 years if 0.5 to 0.9 cm in maximum dimension. * TR3, TR4 or TR5 nodules that are below the size threshold for follow up receive no follow up.
== END 2021-06-14 08:51 | disposition home or self-care (01) ==
LOC: HO.HMGCX 08:50
PROVIDERS: Visit Provider Internal Medicine
DX: E04.1 Nontoxic single thyroid nodule (principal)
CPT/HCPCS: 76536

== ENCOUNTER 2021-07-06 10:57 | Day surgery (SDC) | payer BC, SELFPAY ==
--- NOTE | 2021-07-06 07:48 | W.PM.OPN ---
Operative Note Operative Note Date of Service: 07/06/21 Narrative: Operative Note Preop diagnosis: 1. Right middle finger Trigger finger 2. Right trigger thumb Postop diagnosis: Same Procedure: 1. Right middle finger A1 be release 2. Right trigger thumb A1 be release Surgeon: Asia Francisco MD Anesthesia: local block using 1% lidocaine with epinephrine Findings: No locking or catching after A1 be release EBL: Less than 5 mL Tourniquet time: None Specimens: None Complications: None Disposition: Brought to recovery room in stable condition Plan: Follow-up for 10-14 days for wound check and suture removal Indications: The patient is 55 years old, with a right middle finger trigger finger and right trigger thumb that have been unresponsive to nonoperative management. The risks and benefits of operative treatment including but not limited to risk of damage to blood vessels, nerves, tendons, infection, persistent pain, persistent symptoms, recurrence or possible need for additional surgery were discussed with the patient and the patient wishes to proceed with surgery. Procedure: Once consent was obtained a local block was performed in the preop area using a combination of 1% lidocaine with epinephrine. The patient was then brought back to the operating suite and placed on the operative table in supine position. A tourniquet was applied to the proximal aspect of the right upper extremity and the limb was prepped and draped in a standard surgical fashion. Once assured that we had a good block, a 1.5 cm oblique incision was made centered over the A1 be of the right middle finger . The incision was made through the skin to the subcutaneous tissues using a #15 blade. Careful dissection was made down to the level of the A1 be using tenotomy scissors, with care being taken to protect the nearby neurovascular structures. A longitudinal incision was made in the A1 be 1st using a #15 blade, then using tenotomy scissors under direct visualization. The A1 be was noted to be thickened. Following our A1 be release, we no longer saw any locking or catching of the digit with flexion and extension. Once assured that we had a good block, a 1.5 cm oblique incision was made centered over the A1 be of the right thumb . The incision was made through the skin to the subcutaneous tissues using a #15 blade. Careful dissection was made down to the level of the A1 be using tenotomy scissors, with care being taken to protect the nearby neurovascular structures. A longitudinal incision was made in the A1 be 1st using a #15 blade, then using tenotomy scissors under direct visualization. The A1 be was noted to be thickened. Following our A1 be release, we no longer saw any locking or catching of the digit with flexion and extension. Once satisfied with our A1 be release the wounds were copiously irrigated with normal saline and hemostasis was obtained with a brief period of local pressure. The skin edges were reapproximated with some 5.0 nylon suture material and a sterile dressing was applied. The patient appears to have tolerated the procedure well and with no complications. All digits were well vascularized at the conclusion of the case.
[2021-07-06 11:14] VITALS: BP 123/56; PULSE 70; RESP 18; TEMP 36.5; O2SAT 98; BMI 35.9
[2021-07-06 11:24] LABS: Glucose, Whole Blood 75 mg/dL (60-115)
[2021-07-06 15:16] VITALS: BP 115/56; PULSE 72; RESP 16; TEMP 36.7; O2SAT 95
== END 2021-07-06 16:01 | disposition home or self-care (01) ==
PROVIDERS: PCP Internal Medicine; Visit Provider Orthopaedic Surgery
PROC: (CPT 26055; principal; 2021-07-06 11:00)
DX: M65.331 Trigger finger, right middle finger (principal); M65.311 Trigger thumb, right thumb; M79.641 Pain in right hand; D75.1 Secondary polycythemia; E11.9 Type 2 diabetes mellitus without complications; Z79.84 Long term (current) use of oral hypoglycemic drugs; Z79.899 Other long term (current) drug therapy; Z88.8 Allergy status to other drugs, medicaments and biological substances; F17.210 Nicotine dependence, cigarettes, uncomplicated; Z98.890 Other specified postprocedural states
CPT/HCPCS: 26055 ×2; 82947; J0171

== ENCOUNTER → 2021-07-19 10:41 | Outpatient (BNVA) | payer BC, SELFPAY | PROVIDERS: PCP Internal Medicine; Visit Provider Orthopaedic Surgery | DX: Z13.89 Encounter for screening for other disorder (principal) ==

== ENCOUNTER 2021-09-12 07:21 | Outpatient (REF) | payer BC, SELFPAY ==
[2021-09-12 11:58] LABS: Alanine Aminotransferase 17 U/L (0-31); Albumin Level 4.7 g/dL (3.5-5.0); Alkaline Phosphatase 82 U/L (39-117); Anion Gap 14 (12-20); Aspartate Amino Transferase 14 U/L (5-31); Bilirubin Total 0.7 mg/dL (0.0-1.0); Blood Urea Nitrogen 14 mg/dL (9-16); Calcium 9.5 mg/dL (8.4-10.2); Carbon Dioxide 26 mmol/L (22-29); Chloride 104 mmol/L (96-108); Cholesterol 185 mg/dL; Estimated Glomerular Filt Rate > 60; Glucose Fasting 108 mg/dL (60-99); HDL Cholesterol 49 mg/dL; LDL Cholesterol Calculated 118 mg/dl; Potassium 4.6 mmol/L (3.3-5.1); Sodium 139 mmol/L (135-145); Total Protein 7.3 g/dL (6.5-8.0); Triglycerides 92 mg/dL
[2021-09-12 12:00] LABS: Estimated Average Glucose 105 mg/dL; Hemoglobin A1c % 5.3 %
[2021-09-12 12:42] LABS: Creatinine Urine 18.03 mg/dL; Microalbum/Creatinine Ratio Ur 177.4 ug/mg cr
== END 2021-09-12 07:22 | disposition home or self-care (01) ==
LOC: HO.HMGCLDS 07:21
PROVIDERS: Visit Provider Internal Medicine
DX: E11.9 Type 2 diabetes mellitus without complications (principal); Z72.0 Tobacco use
CPT/HCPCS: 36415; 80053; 80061; 82043; 83036

== ENCOUNTER 2021-11-07 08:44 | Outpatient (REF) | payer SELFPAY ==
[2021-11-08 09:11] LABS: Rubella IgG Antibody 1.16 Index; Rubeola IgG (Measles) <13.50 AU/mL
== END 2021-11-07 08:45 | disposition home or self-care (01) ==
LOC: HO.HMGCLDS 08:44
PROVIDERS: PCP Internal Medicine; Visit Provider Internal Medicine
DX: Z01.84 Encounter for antibody response examination (principal); Z78.9 Other specified health status
CPT/HCPCS: 36415; 86735; 86762; 86765; 86787

== ENCOUNTER 2022-02-20 09:42 | Outpatient (REF) | payer BC, SELFPAY ==
--- NOTE | ~2022-02-20 | MM_ITS ---
EXAMINATION: MM SCREENING DIGITAL BREAST TOMOSYNTHESIS, BILATERAL CLINICAL INFORMATION: Screening. Asymptomatic. The lifetime risk of breast cancer based on the Tyrer-Cuzick Model is 6%. COMPARISON: Mammography: 12/20/2020, 03/22/2015, 03/12/2014 TECHNIQUE: Digital breast tomosynthesis is performed in both the craniocaudal and mediolateral oblique views along with computer-aided detection (CAD). Synthesized 2D images are generated from the tomosynthesis. FINDINGS: There are scattered areas of fibroglandular density (ACR BI-RADS breast composition Category b). There are no significant masses, abnormal calcifications, or other abnormalities. Fine fibronodular parenchymal pattern is similar to prior exams and there is no developing density or interval architectural abnormality. Parenchymal pattern is similar to prior studies. The axilla and skin contours are unremarkable. MM/MM tomosynthesis screening BI IMPRESSION: No mammographic evidence of malignancy. ASSESSMENT: BI-RADS 1: Negative RECOMMENDATION: Routine annual mammography screening. This patient's information was entered into a reminder system with a target due date for their next mammogram.
== END 2022-02-20 09:43 | disposition home or self-care (01) ==
LOC: HO.MAMMO 09:42
PROVIDERS: PCP Internal Medicine; Visit Provider Internal Medicine
DX: Z12.31 Encounter for screening mammogram for malignant neoplasm of breast (principal)
CPT/HCPCS: 77063; 77067

== ENCOUNTER 2022-03-16 06:54 | Outpatient (REF) | payer BC, SELFPAY ==
[2022-03-16 11:31] LABS: Estimated Average Glucose 108 mg/dL; Hemoglobin A1c % 5.4 %
[2022-03-16 11:58] LABS: Alanine Aminotransferase 13 U/L (0-31); Albumin Level 4.3 g/dL (3.5-5.0); Alkaline Phosphatase 72 U/L (39-117); Anion Gap 12 (12-20); Aspartate Amino Transferase 14 U/L (5-31); Bilirubin Total 0.7 mg/dL (0.0-1.0); Blood Urea Nitrogen 26 mg/dL (9-16); Calcium 9.3 mg/dL (8.4-10.2); Carbon Dioxide 27 mmol/L (22-29); Chloride 107 mmol/L (96-108); Cholesterol 175 mg/dL; Estimated Glomerular Filt Rate > 60; Glucose Fasting 101 mg/dL (60-99); HDL Cholesterol 44 mg/dL; LDL Cholesterol Calculated 120 mg/dl; Potassium 4.3 mmol/L (3.3-5.1); Sodium 142 mmol/L (135-145); Total Protein 6.6 g/dL (6.5-8.0); Triglycerides 59 mg/dL
[2022-03-16 11:59] LABS: TSH reflex Free T4 1.27 uIU/mL (0.32-4.0)
== END 2022-03-16 06:55 | disposition home or self-care (01) ==
LOC: HO.HMGCLDS 06:54
PROVIDERS: PCP Internal Medicine; Visit Provider Internal Medicine
DX: E04.1 Nontoxic single thyroid nodule (principal); E11.9 Type 2 diabetes mellitus without complications; E66.9 Obesity, unspecified
CPT/HCPCS: 36415; 80053; 80061; 83036; 84443

== ENCOUNTER → 2022-04-02 09:18 | Outpatient (BNVA) | payer BC, SELFPAY | PROVIDERS: PCP Internal Medicine; Visit Provider Orthopaedic Surgery | DX: M65.332 Trigger finger, left middle finger (principal) | CPT/HCPCS: 20550; J1100 ==

== ENCOUNTER 2022-07-20 11:11 | Outpatient (REF) | payer BC, SELFPAY ==
--- NOTE | ~2022-07-20 | US_ITS ---
EXAMINATION: US THYROID CLINICAL INFORMATION: Nontoxic single thyroid nodule. COMPARISON: Ultrasound soft tissue head/neck thyroid dated 06/14/2021 and 10/29/2020. TECHNIQUE: Linear transducer grayscale and color Doppler examination with attention to the region of the thyroid. Difficult exam secondary to low-lying thyroid. FINDINGS: SIZE: Measurements of the thyroid lobes and nodules are given in sagittal, anteroposterior and transverse dimensions respectively. Right Thyroid Lobe: 5.2 x 4.2 x 2.6 cm, volume 29.7 mL. Previously 5.6 x 4.2 x 2.5 cm, volume 31.1 mL. Parenchyma: The gland echotexture is heterogeneous. Thyroid vascularity is normal. Left Thyroid Lobe: 5.0 x 2.0 x 2.0 cm, volume 10.5 mL. Previously 5.1 x 2.2 x 1.6 cm, volume 9.6 mL. Parenchyma: The gland echotexture is heterogeneous. Thyroid vascularity is normal. Isthmus: 0.6 cm in maximum AP dimension. Previously 0.8 cm. Estimated total number of nodules greater than or equal to 1 cm: 4. Tape Edge Machine Operator nodules are described as follows: 1. Location: Right mid. Size: 3.8 x 3.3 x 2.4 cm, volume 15.7 mL. Previously: 3.4 x 2.0 x 2.2 cm, volume 7.8 mL. Nodule characteristics: Composition: Solid (2). Echogenicity: Isoechoic (1). Shape: Taller than wide (3). Margins: Lobulated (2). Echogenic Foci: None (0). ACR TI-RADS total points: 8 Previous: 3 ACR TI-RADS category: 5 Previous: 3 Significant change in size (>/= 20% in 2 dimensions and minimal increase of 2 mm or 50% or greater increase in volume): Yes Change in features: Yes Change in ACR TI-RADS risk category: Yes 2. Location: Right mid anterior. Size: 1.5 x 0.4 x 1.0 cm, volume 0.31 mL. Previously: New since the previous study. Nodule characteristics: Composition: Solid (2). Echogenicity: Isoechoic (1). Shape: Not taller than wide (0). Margins: Ill-defined (0). Echogenic Foci: None (0). ACR TI-RADS total points: 3 ACR TI-RADS category: 3 3. Location: Right inferior. Size: 1.3 x 1.1 x 1.3 cm, volume 1.05 mL. Previously: 1.4 x 1.1 x 1 4 cm, volume 1.00 mL. Nodule characteristics: Composition: Solid (2). Echogenicity: Cannot be determined (1). Shape: Not taller than wide (0). Margins: Smooth (0). Echogenic Foci: Peripheral calcifications (2). ACR TI-RADS total points: 5 Previous: 5 ACR TI-RADS category: 4 Previous: 4 Significant change in size (>/= 20% in 2 dimensions and minimal increase of 2 mm or 50% or greater increase in volume): No Change in features: No Change in ACR TI-RADS risk category: No 4. Location: Left mid. Size: 1.0 x 1.0 x 0.9 cm, volume 0.47 mL. Previously: 0.9 x 1.1 x 0.8 cm, volume 0.42 mL. Nodule characteristics: Composition: Solid (2). Echogenicity: Hypoechoic (2). Shape: Taller than wide (3). Margins: Ill-defined (0). Echogenic Foci: None (0). ACR TI-RADS total points: 7 Previous: 7 ACR TI-RADS category: 5 Previous: 5 Significant change in size (>/= 20% in 2 dimensions and minimal increase of 2 mm or 50% or greater increase in volume): No Change in features: No Change in ACR TI-RADS risk category: No 5. Location: Left mid lateral. Size: 0.8 x 0.6 x 0.6 cm, volume 0.17 mL. Previously: New since the previous study. Nodule characteristics: Composition: Solid (2). Echogenicity: Hypoechoic (2). Shape: Not taller than wide (0). Margins: Ill-defined (0). Echogenic Foci: None (0). ACR TI-RADS total points: 4 ACR TI-RADS category: 4 NODES: No lymphadenopathy is seen in the tissue surrounding the thyroid gland. US/US thyroid IMPRESSION: 1. An increased 3.8 cm in maximal diameter mid right thyroid lobe nodule meets ACR biopsy criteria and is amenable to ultrasound-guided biopsy, if clinically indicated and not already performed. 2. There is a diffuse goiter, right lobe greater than left. 3. There is heterogeneous thyroid echotexture, which can be associated with thyroiditis. ACR TI-RADS RECOMMENDATION REFERENCE: Ultrasound-guided fine-needle aspiration, followup ultrasound, no further follow up. * TR1 (0 point) and TR2 (2 points): No FNA or follow up * TR3 (3 points): FNA if more than or equal to 2.5 cm in maximum dimension, followup ultrasound in 1, 3 and 5 years if 1.5 to 2.4 cm in maximum dimension. * TR4 (4-6 points): FNA if more than or equal to 1.5 cm in maximum dimension, followup ultrasound in 1, 2, 3 and 5 years if 1 to 1.4 cm in maximum dimension. * TR5 (more than or equal to 7 points): FNA if more than or equal to 1 cm in maximum dimension, followup ultrasound every year for 5 years if 0.5 to 0.9 cm in maximum dimension. * TR3, TR4 or TR5 nodules that are below the size threshold for follow up receive no follow up.
== END 2022-07-20 11:12 | disposition home or self-care (01) ==
LOC: HO.HMGCX 11:11
PROVIDERS: PCP Internal Medicine; Visit Provider Internal Medicine
DX: E04.1 Nontoxic single thyroid nodule (principal)
CPT/HCPCS: 76536

== ENCOUNTER 2022-08-03 07:42 | Outpatient (REF) | payer BC, SELFPAY ==
--- NOTE | ~2022-08-03 | CT_ITS ---
EXAMINATION: LUNG CANCER SCREENING CT CHEST WITHOUT CONTRAST CLINICAL INFORMATION: Current smoker with 40 pack year history COMPARISON: 11/18/2020 TECHNIQUE: Multidetector volumetric CT imaging of the chest was obtained noncontrast using low dose screening CT technique. Axial thin section 0.625 mm reformations in soft tissue and lung windows were obtained. Sagittal and coronal reformations were obtained. Axial MIP images were also created and reviewed. This CT examination was performed using dose optimization techniques as appropriate, variously including the following: *Automated exposure control *Adjustment of mA and/or kV according to patient size (this includes techniques or standardized protocols for targeted exams where dose is matched to indication/reason for exam; i.e. extremities or head) *Use of iterative reconstruction technique TOTAL EXAM DLP: 52 mGy-cm FINDINGS: PULMONARY NODULES (see xie images): No suspicious pulmonary nodules. There are couple punctate nodules in the right lung which are stable. LUNGS / PLEURA: Minimal emphysema. Diffuse mild bronchial wall thickening without bronchiectasis. No pleural effusion or pneumothorax. MEDIASTINUM / PRASHANT: Heart normal in size without pericardial effusion. Great vessels normal caliber. No lymphadenopathy. Coronary calcifications present. There is a 1.3 cm peripherally calcified nodule right thyroid gland which does not meet criteria for dedicated imaging by ultrasound. CHEST WALL / AXILLA: Unremarkable. UPPER ABDOMEN: Included portions grossly unremarkable allowing for limitations in technique. OSSEOUS STRUCTURES: No acute or suspicious osseous abnormalities. CT/CT lung screening IMPRESSION: * No evidence of pulmonary malignancy. * There are no pulmonary nodules that meet criteria for short interval follow-up at this time. ASSESSMENT: Lung RADS category: 2. Benign appearance or behavior. Nodules with a very low likelihood of becoming a clinically active cancer due to size or lack of growth. Continue annual screening with low-dose CT in 12 months. Probability of malignancy less than 1%. RECOMMENDATION: Follow up low dose CT chest in 1 year.
== END 2022-08-03 07:43 | disposition home or self-care (01) ==
LOC: HO.CT 07:42
PROVIDERS: PCP Internal Medicine; Visit Provider Physician Assistant Medical
DX: Z12.2 Encounter for screening for malignant neoplasm of respiratory organs (principal); F17.210 Nicotine dependence, cigarettes, uncomplicated
CPT/HCPCS: 71271

== ENCOUNTER → 2022-08-24 15:21 | Outpatient (BNVA) | payer BC, SELFPAY | PROVIDERS: PCP Internal Medicine; Visit Provider Internal Medicine Endocrinology, Diabetes & Metabolism ==

== ENCOUNTER 2022-08-31 06:26 | Outpatient (REF) | payer BC, SELFPAY ==
[2022-08-31 11:31] LABS: MANUAL DIFF FLAG NO
[2022-08-31 11:40] LABS: Basophils Absolute Auto 0.1 X10*3/uL (0.0-0.2); Basophils Percent Auto 0.8 % (0-2); Eosinophils Absolute Auto 0.2 X10*3/uL (0.0-0.4); Eosinophils Percent Auto 3.1 % (0-4); Hematocrit 46.6 % (37.0-47.0); Hemoglobin 15.1 g/dl (12.0-16.0); Imm Gran Abs Auto 0.01 X10*3/uL (0.00-0.03); Imm Gran Pct Auto 0.2 % (0.0-0.4); Lymphocytes Absolute Auto 2.3 X10*3/uL (1.2-4.9); Lymphocytes Percent Auto 35.3 % (20-40); Mean Corpuscular HGB Conc 32.4 g/dl (31.0-35.0); Mean Corpuscular Hemoglobin 28.3 pg (27.0-33.0); Mean Corpuscular Volume 87.3 fL (80.0-98.0); Mean Platelet Volume 9.2 fL (9.4-12.3); Monocytes Absolute Auto 0.5 X10*3/uL (0.1-1.2); Monocytes Percent Auto 7.7 % (2-11); Neutrophils Absolute Auto 3.4 x10*3/uL (2.0-8.3); Neutrophils Percent Auto 52.9 % (45-73); Platelet Count 294 X10*3/uL (160-400); Red Blood Count 5.34 X10*6/uL (4.20-5.50); Red Cell Distribution Width 12.6 % (11.0-16.0); White Blood Count 6.5 X10*3/uL (4.8-10.8)
[2022-08-31 12:33] LABS: Estimated Average Glucose 100 mg/dL; Hemoglobin A1c % 5.1 %
[2022-08-31 12:58] LABS: Alanine Aminotransferase 15 U/L (0-31); Albumin Level 4.8 g/dL (3.5-5.0); Alkaline Phosphatase 76 U/L (39-117); Anion Gap 13 (12-20); Aspartate Amino Transferase 16 U/L (5-31); Bilirubin Total 1.4 mg/dL (0.0-1.0); Blood Urea Nitrogen 18 mg/dL (9-16); Calcium 10.1 mg/dL (8.4-10.2); Carbon Dioxide 26 mmol/L (22-29); Chloride 102 mmol/L (96-108); Estimated Glomerular Filt Rate > 60; Glucose Fasting 96 mg/dL (60-99); Potassium 4.1 mmol/L (3.3-5.1); Sodium 137 mmol/L (135-145); Total Protein 7.7 g/dL (6.5-8.0)
[2022-08-31 13:03] LABS: Creatinine Urine 8.93 mg/dL; Microalbum/Creatinine Ratio Ur 190.3 ug/mg cr
== END 2022-08-31 06:27 | disposition home or self-care (01) ==
LOC: HO.HMGCLDS 06:26
PROVIDERS: PCP Internal Medicine; Visit Provider Internal Medicine
DX: E11.65 Type 2 diabetes mellitus with hyperglycemia (principal)
CPT/HCPCS: 36415; 80053; 82043; 83036; 85025

== ENCOUNTER 2022-09-12 10:08 | Outpatient (REF) | payer BC, SELFPAY ==
--- NOTE | ~2022-09-12 | US_ITS ---
EXAMINATION: Ultrasound-guided fine-needle aspiration CLINICAL INFORMATION: Enlarging right thyroid nodule COMPARISON: Previous thyroid ultrasounds most recent July [address] October 2020 TECHNIQUE: Procedure and risks and benefits including bleeding and infection were discussed with the patient and informed consent was obtained. The right neck was prepped and draped in the usual sterile fashion. The skin and soft tissues were anesthetized with 1% lidocaine plain. Using ultrasound guidance and a 25-gauge needle, access to the 3.4 x 2.2 x 3 cm nodule in the mid right lobe was obtained. 5 25-gauge fine needle aspirations were obtained. FINDINGS: There is a 3.4 x 2.2 x 3 cm solid isoechoic nodule in the right middle lobe that was targeted for fine-needle aspiration. US/US guided fine needle asp IMPRESSION: Ultrasound-guided right thyroid nodule fine-needle aspiration.
[2022-09-12] MEDS: Lidocaine HCl 1 % MPF 5 ML VIAL SUBCUT (11:44)
== END 2022-09-12 10:09 | disposition home or self-care (01) ==
LOC: HO.US 10:08
PROVIDERS: PCP Internal Medicine; Visit Provider Internal Medicine Endocrinology, Diabetes & Metabolism
DX: E04.1 Nontoxic single thyroid nodule (principal)
CPT/HCPCS: 10005; 88172; 88173; 88177; 88305

== ENCOUNTER → 2022-09-12 10:09 | Outpatient (BNV) | payer BC, SELFPAY | PROVIDERS: PCP Internal Medicine; Visit Provider Radiology Diagnostic Radiology | DX: E04.1 Nontoxic single thyroid nodule (principal) | CPT/HCPCS: 10005 ==

== ENCOUNTER 2022-09-18 08:03 | Outpatient (AMB) | payer BC, SELFPAY ==
[2022-09-18 08:17] VITALS: BP 138/86; PULSE 71; BMI 32.7
--- NOTE | 2022-09-18 08:17 | A.OFFVIS_ITS ---
Intake Vital Signs 09/18/22 08:17 Height 4 ft 10 in Weight 156 lb 8.451 oz BMI 32.7 BP 138/86 Blood Pressure Location Rt brachial Position Sitting Pulse 71 Pulse Source Pulse Oximeter Intake Visit Reasons: FNA follow up Intake Note: Patient present today for Biopsy Results. Appeals Nurse Required: No Accompanied by: Self / Same As Patient Allergies monosodium glutamate Allergy (Intermediate, Verified 09/18/22 08:19) ITCHING/HEADACHE egg Allergy (Verified 09/18/22 08:19) Diarrhea HPI HPI Comments History of Present Illness Details 57 YO F with who is seen in consultation for multinodular thyroid at the request of PCP. Was initially diagnosed with multinodular thyroid in 2 yrs ago . Never saw endo before . Currently complains of dysphagia but no hoarseness of voice. Has sometimes sensation of swelling in the neck or difficulty breathing while lying flat. Has any tenderness in the right side neck. Denies any palpitations, tremors, weight loss, frequent bowel movements. Denies any ocular complaints, blurred or double vision. Has hair loss, -dry skin, -heat or cold intolerance, -weight gain, -confusion. Denies any history of head or neck irradiation. Denies any family history of thyroid cancer. No hx of thyroid problems Had biopsy of nodules in the past. Thyroid US:CLINICAL INFORMATION: Nontoxic single thyroid nodule. COMPARISON: Ultrasound soft tissue head/neck thyroid dated 06/14/2021 and 10/29/2020. TECHNIQUE: Linear transducer grayscale and color Doppler examination with attention to the region of the thyroid. Difficult exam secondary to low-lying thyroid. FINDINGS: ? SIZE: Measurements of the thyroid lobes and nodules are given in sagittal, anteroposterior and transverse dimensions respectively. Right Thyroid Lobe: 5.2 x 4.2 x 2.6 cm, volume 29.7 mL. Previously 5.6 x 4.2 x 2.5 cm, volume 31.1 mL. Parenchyma: The gland echotexture is heterogeneous. Thyroid vascularity is normal. Left Thyroid Lobe: 5.0 x 2.0 x 2.0 cm, volume 10.5 mL. Previously 5.1 x 2.2 x 1.6 cm, volume 9.6 mL. Parenchyma: The gland echotexture is heterogeneous. Thyroid vascularity is normal. Isthmus: 0.6 cm in maximum AP dimension. Previously 0.8 cm. Estimated total number of nodules greater than or equal to 1 cm: 4. [employer] nodules are described as follows: 1.? Location: Right mid. ?? ? Size: 3.8 x 3.3 x 2.4 cm, volume 15.7 mL. ?? ? Previously: 3.4 x 2.0 x 2.2 cm, volume 7.8 mL. ?? ? Nodule characteristics: ?? ? Composition: Solid (2). ?? ? Echogenicity: Isoechoic (1). ?? ? Shape: Taller than wide (3). ?? ? Margins: Lobulated (2). ?? ? Echogenic Foci: None (0).? ACR TI-RADS total points: 8 Previous: 3 ?? ? ACR TI-RADS category: 5 Previous: 3 ? Significant change in size (>/= 20% in 2 dimensions and minimal increase of 2 mm or 50% or greater increase in volume): Yes ?? ? Change in features: Yes ?? ? Change in ACR TI-RADS risk category: Yes 2.? Location: Right mid anterior. ?? ? Size: 1.5 x 0.4 x 1.0 cm, volume 0.31 mL. ?? ? Previously: New since the previous study. ?? ? Nodule characteristics: ?? ? Composition: Solid (2). ?? ? Echogenicity: Isoechoic (1). ?? ? Shape: Not taller than wide (0). ?? ? Margins: Ill-defined (0). ?? ? Echogenic Foci: None (0).? ACR TI-RADS total points: 3 ?? ? ACR TI-RADS category: 3 3.? Location: Right inferior. ?? ? Size: 1.3 x 1.1 x 1.3 cm, volume 1.05 mL. ?? ? Previously: 1.4 x 1.1 x 1 4 cm, volume 1.00 mL. ?? ? Nodule characteristics: ?? ? Composition: Solid (2). ?? ? Echogenicity: Cannot be determined (1). ?? ? Shape: Not taller than wide (0). ?? ? Margins: Smooth (0). ?? ? Echogenic Foci: Peripheral calcifications (2).? ACR TI-RADS total points: 5 Previous: 5 ?? ? ACR TI-RADS category: 4 Previous: 4 ? Significant change in size (>/= 20% in 2 dimensions and minimal increase of 2 mm or 50% or greater increase in volume): No ?? ? Change in features: No ?? ? Change in ACR TI-RADS risk category: No 4.? Location: Left mid. ?? ? Size: 1.0 x 1.0 x 0.9 cm, volume 0.47 mL. ?? ? Previously: 0.9 x 1.1 x 0.8 cm, volume 0.42 mL. ?? ? Nodule characteristics: ?? ? Composition: Solid (2). ?? ? Echogenicity: Hypoechoic (2). ?? ? Shape: Taller than wide (3). ?? ? Margins: Ill-defined (0). ?? ? Echogenic Foci: None (0).? ACR TI-RADS total points: 7 Previous: 7 ?? ? ACR TI-RADS category: 5 Previous: 5 ? Significant change in size (>/= 20% in 2 dimensions and minimal increase of 2 mm or 50% or greater increase in volume): No ?? ? Change in features: No ?? ? Change in ACR TI-RADS risk category: No 5.? Location: Left mid lateral. ?? ? Size: 0.8 x 0.6 x 0.6 cm, volume 0.17 mL. ?? ? Previously: New since the previous study. ?? ? Nodule characteristics: ?? ? Composition: Solid (2). ?? ? Echogenicity: Hypoechoic (2). ?? ? Shape: Not taller than wide (0). ?? ? Margins: Ill-defined (0). ?? ? Echogenic Foci: None (0).? ACR TI-RADS total points: 4 ?? ? ACR TI-RADS category: 4 NODES: No lymphadenopathy is seen in the tissue surrounding the thyroid gland. Labs: FNA of the right mid nodule showed ?Follicular lesion of undetermined significance (category 3). Affirm is pending [facility] Medical History Annual physical exam Cervical spine degeneration DM type 2 (diabetes mellitus, type 2) (~2020) Hand pain, right Obesity Osteoarthritis Personal history of nicotine dependence Polycythemia Thyroid nodule Tobacco consumption Trigger finger of right hand Surgical History History of carpal tunnel release (~2010) History of cataract surgery History of cervical discectomy (~2007) History of colonoscopy (~2015) History of hernia repair (~2001) History of vaginal hysterectomy (~2003) Family History Father Alzheimer's dementia Mother Lung cancer Sister Lung cancer Brother Other Substance use disorder Social History Household Members: Spouse and Family Household Members Other:: RH at [place], Housing: House Are you a primary customer care representative to a significant other at home: No Do you presently have visiting nurse or other home services: No Alcohol intake: current Alcohol intake frequency: holidays/special occasions only Patient Tobacco Use Status: Current everyday Tobacco user Tobacco use type: Cigarette Cigarette Packs Per Day: 0.75 Years Smoked: 39yrs (onset 16, 1/2-1ppd x39yrs, 30PYH) e-Cigarette/Vaping Use: Never Used service: No Current occupational status: employed and unemployed Cognitive needs: No Hearing needs: No Vision needs: Yes Physical Exam Vital Signs: Last Vital Signs Pulse 71 09/18/22 08:17 BP 138/86 09/18/22 08:17 BMI result Body Mass Index 32.7 HEENT reveals absence of lid lag , stare or proptosis or eyebrow loss. Thyroid gland measure 15 gms . There is a 3 cm right lower pole thyroid nodule palpated. There is no cervical adenopathy palpated. Lungs CTA. Heart S1, S2 Reg R/R -M/R/G. Abdominal exam benign. Skin exam reveals absence of dryness or thyroid dermopathy or vitiligo. Nail exam reveals absence of thyroid acropachy or oncholysis. Neurologic exam reveals 2+ reflexes . Muscle Strength is 5/5 proximally. There are no tremors in upper extremities. Assessment & Plan Assessment & Plan (1) Thyroid nodule: Comment: (Right lobe - 3 nodules - 2.2 cm, 1.4 cm and 1.4 cm), seen by Endo in 11/08, repeated US 07/09 stable Code(s): E04.1 - Nontoxic single thyroid nodule Plan: This is a 57-year-old white female with history of multinodular goiter with dominant left thyroid nodule. She appears to be clinically and biochemically euthyroid. FNA showed follicular lesion of undetermined significance. Afirma is pending Plan is to wait for the Afirma report. Went over options with patient including observation versus surgical resection and patient is opting for surgical resection. She will be sent to for surgical resection the nodule. Extent of surgery might be determined by Afirma Orders: Referrals General Surgery Referral E04.1 - Nontoxic single thyroid nodule Coding Level of Care Code Est Pt Level 3 (59391) Diagnoses Thyroid nodule E04.1
== END 2022-09-18 09:46 | disposition home or self-care (01) ==
PROVIDERS: PCP Internal Medicine; Visit Provider Internal Medicine Endocrinology, Diabetes & Metabolism
DX: E04.1 Nontoxic single thyroid nodule (principal)
CPT/HCPCS: 99213

== ENCOUNTER → 2022-09-18 08:03 | Outpatient (BNVA) | payer BC, SELFPAY | PROVIDERS: PCP Internal Medicine; Visit Provider Internal Medicine Endocrinology, Diabetes & Metabolism ==

== ENCOUNTER 2022-09-24 11:39 | Outpatient (AMB) | payer BC, SELFPAY ==
--- NOTE | 2022-09-24 12:16 | MHC.PC.OV ---
Vital Signs 09/24/22 12:17 Height 4 ft 10 in Weight 158 lb BMI 33.0 BP 120/68 Blood Pressure Location Lt brachial Position Sitting Pulse 77 Pulse Source Pulse Oximeter Pulse Oximetry (%) 98 Oxygen Delivery Method Room Air Intake Visit Reasons: 6M Follow up-Per PCP's request Intake Note: Pt is here today for 6 months follow up visit. Allergies monosodium glutamate Allergy (Intermediate, Verified 09/24/22 12:18) ITCHING/HEADACHE egg Allergy (Verified 09/24/22 12:18) Diarrhea Medication List - Last Reconciled 09/24/22 by Graciela Mg MD acetaminophen (Tylenol Extra Strength) 1,000 mg (2 x 500 mg) PO QID PRN albuterol sulfate 90 mcg/actuation (ProAir HFA) 2 puffs inhalation Q6H PRN blood sugar diagnostic (SIGKAT Verio test strips) test blood sugars 3 times per day ketoconazole 2% 1 appl topical DAILY lancets (PlaytabaseTouch Delica Lancets) test blood sugars 3 times per day metformin 1,000 mg PO BID triamcinolone acetonide 0.025% 1 appl topical BID Tobacco use date assessed: 03/27/22 Dental Screening Dental Screen Date: 09/24/22 Did you have a dental visit in the last 12 months?: Yes Did you have a dental problem in the last 6 months where you did not have access to dental care?: No Was dental information given to patient?: Patient has dentist HPI 6M Follow up-Per PCP's request HPI Details Pt presents for multinodular goiter, had inconclusive pathology on biopsy and will see thyroid surgeon Dr. Matthews in December. Patient reports using albuterol inhaler on daily basis at night and having intermittent cough and wheezing but no sputum production pleurisy or shortness of breath. She is cutting down on smoking down to a half a pack a day. [facility] Medical History Annual physical exam Cervical spine degeneration DM type 2 (diabetes mellitus, type 2) (~2020) Hand pain, right Obesity Osteoarthritis Personal history of nicotine dependence Polycythemia Thyroid nodule Tobacco consumption Trigger finger of right hand Surgical History History of carpal tunnel release (~2010) History of cataract surgery History of cervical discectomy (~2007) History of colonoscopy (~2015) History of hernia repair (~2001) History of vaginal hysterectomy (~2003) Family History Father Alzheimer's dementia Mother Lung cancer Sister Lung cancer Brother Other Substance use disorder Social History Household Members: Spouse and Family Household Members Other:: RH at [place], Housing: House Are you a primary career and transition teacher to a significant other at home: No Do you presently have visiting nurse or other home services: No Alcohol intake: current Alcohol intake frequency: holidays/special occasions only Patient Tobacco Use Status: Current everyday Tobacco user Tobacco use type: Cigarette Cigarette Packs Per Day: 0.75 Years Smoked: 39yrs (onset 16, 1/2-1ppd x39yrs, 30PYH) e-Cigarette/Vaping Use: Never Used service: No Current occupational status: employed and unemployed Cognitive needs: No Hearing needs: No Vision needs: Yes Questionnaire Thrive Questionnaire Date Thrive assessed: 03/27/22 NATE-7 AMB Questionnaire NATE-7 Date NATE - 7 assessed: 03/27/22 Source: Developed by Drs. Khang Crain, Trinidad Renae, Ronan Barakat and colleagues, with an educational wilber from [employer]. Review of Systems Const All systems reviewed & are unremarkable except as noted in HPI and below Reports no additional complaints Eyes Reports no additional complaints ENT Reports no additional complaints Card Reports no additional complaints Resp Reports no additional complaints GI Reports no additional complaints Physical exam (Primary Care) Vital Signs: Last Vital Signs Pulse 77 09/24/22 12:17 BP 120/68 09/24/22 12:17 Pulse Ox 98 09/24/22 12:17 Oxygen Delivery Method Room Air 09/24/22 12:17 BMI result Body Mass Index 33.0 Tobacco/Smoking Status: Tobacco use Status Tobacco use date assessed 03/27/22 09/24/22 12:22 Patient Tobacco Use Status Current everyday Tobacco 09/24/22 12:22 Tobacco use type Cigarette 09/24/22 12:22 e-Cigarette/Vaping Use Never Used 09/24/22 12:22 Thrive Assessment: Date of Thrive Assessment Date Thrive assessed 03/27/22 09/24/22 12:22 Const General: no acute distress HENMT Face and sinus: Yes normal facial exam Eyes General: appearance normal, both eyes and all related structures Neck Neck: Yes supple Resp Effort & Inspection: normal respiratory effort Auscultation: clear to auscultation bilaterally Cardio Rhythm: regular rhythm Heart sounds: S1 normal heart sound present and S2 normal heart sound present GI Inspection: Yes normal to inspection Palpation (GI): Soft to palpation Assessment and Plan Assessment & Plan (1) DM type 2 (diabetes mellitus, type 2): Onset Date: ~2020 Code(s): E11.9 - Type 2 diabetes mellitus without complications Plan: A1c is down to 5.1, decrease metformin to 500 mg twice a day continue ADA diet regular exercise follow-up in 4 months with a fasting labs before (2) Thyroid nodule: Comment: (Right lobe - 3 nodules - 2.2 cm, 1.4 cm and 1.4 cm), seen by Endo in 11/08, repeated US 07/09 stable Code(s): E04.1 - Nontoxic single thyroid nodule Plan: Patient will see a thyroid surgeon to discuss partial thyroidectomy (3) Personal history of nicotine dependence: Comment: (current smoker, onset 16, 02/19-1ppd x39yrs,30+PYH, +fam hx lung ca) Code(s): Z87.891 - Personal history of nicotine dependence Plan: Tobacco quitting discussed with the patient. Patient is in lung cancer screening program (4) COPD (chronic obstructive pulmonary disease): Code(s): J44.9 - Chronic obstructive pulmonary disease, unspecified Plan: Try Spiriva and use albuterol only as needed follow-up in 4 months with a fasting labs before Orders: Orders Comprehensive [place]. Panel Fast 4 Months E04.1 - Nontoxic single thyroid nodule, E11.9 - Type 2 diabetes mellitus without complications, Z87.891 - Personal history of nicotine dependence Hemoglobin A1c 4 Months E04.1 - Nontoxic single thyroid nodule, E11.9 - Type 2 diabetes mellitus without complications, Z87.891 - Personal history of nicotine dependence Lipid Panel 4 Months E04.1 - Nontoxic single thyroid nodule, E11.9 - Type 2 diabetes mellitus without complications, Z87.891 - Personal history of nicotine dependence Microalbumin, Random (w Creat) 4 Months E04.1 - Nontoxic single thyroid nodule, E11.9 - Type 2 diabetes mellitus without complications, Z87.891 - Personal history of nicotine dependence Complete Blood Count Auto Diff 4 Months E04.1 - Nontoxic single thyroid nodule, E11.9 - Type 2 diabetes mellitus without complications, Z87.891 - Personal history of nicotine dependence TSH reflex Free T4 4 Months E04.1 - Nontoxic single thyroid nodule Medications: New metformin 500 mg PO BID 180 tabs 1RF tiotropium bromide 2.5 mcg/actuation (Spiriva Respimat) 2 puffs inhalation BEDTIME 4 grams 5RF Coding Level of Care Code Est Pt Level 4 (11539) Diagnoses DM type 2 (diabetes mellitus, type 2) E11.9 Thyroid nodule E04.1 Personal history of nicotine dependence Z87.891 COPD (chronic obstructive pulmonary disease) J44.9
[2022-09-24 12:17] VITALS: BP 120/68; PULSE 77; O2SAT 98; BMI 33.0
== END 2022-09-24 13:10 | disposition home or self-care (01) ==
PROVIDERS: Visit Provider Internal Medicine
DX: E11.9 Type 2 diabetes mellitus without complications (principal); E04.1 Nontoxic single thyroid nodule; Z87.891 Personal history of nicotine dependence; J44.9 Chronic obstructive pulmonary disease, unspecified
CPT/HCPCS: 99214

== ENCOUNTER 2022-12-06 10:43 | Emergency (ER) | payer BC, SELFPAY | END 2022-12-06 13:20 | disposition left against medical advice (07) | PROVIDERS: Emergency Provider Emergency Medicine; PCP Internal Medicine | DX: R20.0 Anesthesia of skin (principal) ==

== ENCOUNTER 2022-12-07 08:07 | Outpatient (AMB) | payer BC, SELFPAY ==
[2022-12-07 08:10] VITALS: BP 128/66; PULSE 77; TEMP 36.2; O2SAT 96; BMI 33.0
--- NOTE | 2022-12-07 08:10 | AM.OFFWIN_ITS ---
Intake Vital Signs 12/07/22 08:10 Height 4 ft 10 in Weight 158 lb BMI 33.0 BP 128/66 Blood Pressure Location Rt brachial Position Sitting Pulse 77 Pulse Source Pulse Oximeter Temp 97.2 F Temp Source Temporal Artery Scan Pulse Oximetry (%) 96 Intake Visit Reasons: EP Cough, Cold symptoms Intake Note: pt is here for c/o cough, bodyaches, headaches, fatigue, weakness Patient Tobacco Use Status: Current everyday Tobacco user Allergies monosodium glutamate Allergy (Intermediate, Verified 12/07/22 08:10) ITCHING/HEADACHE egg Allergy (Verified 12/07/22 08:10) Diarrhea Do you need a note to return to daycare/school/sports/work: Yes HPI EP Cough, Cold symptoms HPI Details Patient presents for a sick visit. Reporting symptoms of sinus congestion, sore throat and difficulty swallowing. Low-grade fever. No family member is sick. No recent travel. Patient reports symptoms of malaise and fatigue. Tested positive for COVID on November 30. Patient return to work on December 05. However she is continuing to have symptoms of shortness of breath and fatigue. Works as a nurse. Smokes a pack a day. COUNTS INCLUDE 234 BEDS AT THE [facility] Medical History Annual physical exam Cervical spine degeneration DM type 2 (diabetes mellitus, type 2) (~2020) Hand pain, right Obesity Osteoarthritis Personal history of nicotine dependence Polycythemia Thyroid nodule Tobacco consumption Trigger finger of right hand Surgical History History of carpal tunnel release (~2010) History of cataract surgery History of cervical discectomy (~2007) History of colonoscopy (~2015) History of hernia repair (~2001) History of vaginal hysterectomy (~2003) Family History Father Alzheimer's dementia Mother Lung cancer Sister Lung cancer Brother Other Substance use disorder Social History Household Members: Spouse and Family Household Members Other:: RH at [place], Housing: House Are you a primary healthcare corporate account director to a significant other at home: No Do you presently have visiting nurse or other home services: No Alcohol intake: current Alcohol intake frequency: holidays/special occasions only Patient Tobacco Use Status: Current everyday Tobacco user Tobacco use type: Cigarette Cigarette Packs Per Day: 0.75 Years Smoked: 39yrs (onset 16, 1/2-1ppd x39yrs, 30PYH) e-Cigarette/Vaping Use: Never Used service: No Current occupational status: employed and unemployed Cognitive needs: No Hearing needs: No Vision needs: Yes Physical Exam Vital Signs: Last Vital Signs Temp 97.2 F 12/07/22 08:10 Pulse 77 12/07/22 08:10 BP 128/66 12/07/22 08:10 Pulse Ox 96 12/07/22 08:10 BMI result Body Mass Index 33.0 Const General: cooperative and healthy appearing Nutritional Appearance: well nourished Orientation/consciousness: patient oriented x3 Limitations: no limitations HEENT Head: Yes normal to inspection Eyes General: appearance normal, both eyes and all related structures Neck Neck: Yes normal visual inspection Chest Chest palpation & inspection: normal palpation of entire chest wall Resp Effort & Inspection: normal respiratory effort Neuro General: patient oriented x3 Assessment & Plan Assessment & Plan (1) Upper respiratory tract infection: Code(s): J06.9 - Acute upper respiratory infection, unspecified Plan: Self-limiting illness. No antibiotics needed. Patient needs rest. Note for work given. Coding Level of Care Code Est Pt Level 3 (63145) Diagnoses Upper respiratory tract infection J06.9
== END 2022-12-07 08:36 | disposition home or self-care (01) ==
PROVIDERS: PCP Internal Medicine; Visit Provider Internal Medicine
DX: J06.9 Acute upper respiratory infection, unspecified (principal)
CPT/HCPCS: 99213

== ENCOUNTER 2023-01-16 08:31 | Outpatient (REF) | payer BC, SELFPAY ==
[2023-01-16 11:16] LABS: MANUAL DIFF FLAG NO
[2023-01-16 11:42] LABS: Basophils Absolute Auto 0.1 X10*3/uL (0.0-0.2); Basophils Percent Auto 0.8 % (0-2); Eosinophils Absolute Auto 0.1 X10*3/uL (0.0-0.4); Eosinophils Percent Auto 1.1 % (0-4); Hematocrit 47.9 % (37.0-47.0); Hemoglobin 15.5 g/dl (12.0-16.0); Imm Gran Abs Auto 0.02 X10*3/uL (0.00-0.03); Imm Gran Pct Auto 0.3 % (0.0-0.4); Lymphocytes Absolute Auto 2.3 X10*3/uL (1.2-4.9); Lymphocytes Percent Auto 28.7 % (20-40); Mean Corpuscular HGB Conc 32.4 g/dl (31.0-35.0); Mean Corpuscular Volume 86.6 fL (80.0-98.0); Mean Platelet Volume 9.2 fL (9.4-12.3); Monocytes Absolute Auto 0.5 X10*3/uL (0.1-1.2); Monocytes Percent Auto 6.2 % (2-11); Neutrophils Percent Auto 62.9 % (45-73); Platelet Count 294 X10*3/uL (160-400); Red Blood Count 5.53 X10*6/uL (4.20-5.50); Red Cell Distribution Width 12.2 % (11.0-16.0); White Blood Count 7.9 X10*3/uL (4.8-10.8)
[2023-01-16 11:54] LABS: Estimated Average Glucose 105 mg/dL; Hemoglobin A1c % 5.3 % (<6.0)
[2023-01-16 12:20] LABS: Alanine Aminotransferase 14 U/L (0-31); Albumin Level 4.6 g/dL (3.5-5.0); Alkaline Phosphatase 80 U/L (39-117); Anion Gap 11 (12-20); Aspartate Amino Transferase 16 U/L (5-31); Bilirubin Total 0.7 mg/dL (0.0-1.0); Blood Urea Nitrogen 14 mg/dL (9-16); Calcium 9.8 mg/dL (8.4-10.2); Carbon Dioxide 29 mmol/L (22-29); Chloride 103 mmol/L (96-108); Cholesterol 181 mg/dL (<200); Estimated Glomerular Filt Rate > 60; Glucose Fasting 94 mg/dL (60-99); HDL Cholesterol 58 mg/dL (>40); LDL Cholesterol Calculated 103 mg/dL (<100); Potassium 3.9 mmol/L (3.3-5.1); Sodium 139 mmol/L (135-145); Total Protein 7.8 g/dL (6.5-8.0); Triglycerides 103 mg/dL (<150)
[2023-01-16 12:39] LABS: Creatinine Urine 7.86 mg/dL; Microalbum/Creatinine Ratio Ur 254.4 ug/mg cr (<30)
[2023-01-16 13:08] LABS: TSH reflex Free T4 1.13 uIU/mL (0.32-4.0)
== END 2023-01-16 08:32 | disposition home or self-care (01) ==
LOC: HO.HMGCLDS 08:31
PROVIDERS: PCP Internal Medicine; Visit Provider Internal Medicine
DX: E11.9 Type 2 diabetes mellitus without complications (principal); E04.1 Nontoxic single thyroid nodule; Z87.891 Personal history of nicotine dependence
CPT/HCPCS: 36415; 80053; 80061; 82043; 82570; 83036; 84443; 85025

== ENCOUNTER 2023-01-29 09:54 | Outpatient (AMB) | payer OTHER, SELFPAY ==
[2023-01-29 10:23] VITALS: BP 120/66; PULSE 84; O2SAT 96; BMI 35.5
--- NOTE | 2023-01-29 10:23 | A.OFFPC_ITS ---
Vital Signs 01/29/23 10:23 Height 4 ft 10 in Weight 170 lb BMI 35.5 BP 120/66 Blood Pressure Location Lt brachial Position Sitting Pulse 84 Pulse Source Pulse Oximeter Pulse Oximetry (%) 96 Oxygen Delivery Method Room Air Intake Visit Reasons: 3 month follow up Intake Note: Pt is here today for 3 months follow up visit. Allergies monosodium glutamate Allergy (Intermediate, Verified 01/29/23 10:24) ITCHING/HEADACHE egg Allergy (Verified 01/29/23 10:24) Diarrhea Medication List - Last Reconciled 01/29/23 by Graciela Mg MD acetaminophen (Tylenol Extra Strength) 1,000 mg (2 x 500 mg) PO QID PRN albuterol sulfate 90 mcg/actuation (ProAir HFA) 2 puffs inhalation Q6H PRN blood sugar diagnostic ([employer] Verio test strips) test blood sugars 3 times per day ketoconazole 2% 1 appl topical DAILY lancets ([employer] Delica Lancets) test blood sugars 3 times per day metformin 500 mg PO BID triamcinolone acetonide 0.025% 1 appl topical BID Tobacco use date assessed: 01/29/23 Dental Screening Dental Screen Date: 01/29/23 Did you have a dental visit in the last 12 months?: Yes Did you have a dental problem in the last 6 months where you did not have access to dental care?: No Was dental information given to patient?: Patient has dentist HPI 3 month follow up HPI Details Pt presents for f/u COPD, TYPE 2 DIABETES, stable on current medications. Patient's cutting down on smoking down to half a pack a day but gained 15 lb since the last visit [facility] Medical History (Updated 01/29/23 @ 12:48 by Graciela Mg MD) Trigger finger of right hand Hand pain, right Osteoarthritis Annual physical exam Personal history of nicotine dependence Obesity DM type 2 (diabetes mellitus, type 2) (~2020) Polycythemia Tobacco consumption Thyroid nodule Cervical spine degeneration Surgical History (Updated 01/29/23 @ 11:15 by Graciela Mg MD) History of cataract surgery History of hernia repair (~2001) History of vaginal hysterectomy (~2003) History of cervical discectomy (~2007) History of carpal tunnel release (~2010) History of colonoscopy (~2015) Family History Father Alzheimer's dementia Mother Lung cancer Sister Lung cancer Brother Other Substance use disorder Social History Household Members: Spouse and Family Household Members Other:: RH at [place], Housing: House Are you a primary health care coordinator to a significant other at home: No Do you presently have visiting nurse or other home services: No Alcohol intake: current Alcohol intake frequency: holidays/special occasions only Patient Tobacco Use Status: Current everyday Tobacco user Tobacco use type: Cigarette Cigarette Packs Per Day: 0.75 Years Smoked: 39yrs (onset 16, 1/2-1ppd x39yrs, 30PYH) e-Cigarette/Vaping Use: Never Used service: No Current occupational status: employed and unemployed Cognitive needs: No Hearing needs: No Vision needs: Yes Questionnaire Thrive Questionnaire Date Thrive assessed: 03/27/22 AUDIT C Alcohol Use Questionnaire (AUDIT-C) 1. How often do you have a drink containing alcohol?: 2-4 times a month 2. How many drinks containing alcohol do you have on a typical day when you are drinking?: 1 or 2 3. How often do you have six or more drinks on one occasion?: Never Total Score: 2 NATE-7 AMB Questionnaire NATE-7 Date NATE - 7 assessed: 03/27/22 Source: Developed by Drs. Khang Crain, Trinidad Renae, Ronan Barakat and colleagues, with an educational wilber from [employer]. Review of Systems Const All systems reviewed & are unremarkable except as noted in HPI and below Reports no additional complaints Eyes Reports no additional complaints ENT Reports no additional complaints Card Reports no additional complaints Resp Reports no additional complaints GI Reports no additional complaints Reports no additional complaints Physical exam (Primary Care) Vital Signs: Last Vital Signs Pulse 84 01/29/23 10:23 BP 120/66 01/29/23 10:23 Pulse Ox 96 01/29/23 10:23 Oxygen Delivery Method Room Air 01/29/23 10:23 BMI result Body Mass Index 35.5 Tobacco/Smoking Status: Tobacco use Status Tobacco use date assessed 01/29/23 01/29/23 10:42 Patient Tobacco Use Status Current everyday Tobacco 12/12/23 10:42 Tobacco use type Cigarette 01/29/23 10:24 e-Cigarette/Vaping Use Never Used 01/29/23 10:24 Thrive Assessment: Date of Thrive Assessment Date Thrive assessed 03/27/22 01/29/23 10:24 Const General: no acute distress HENMT Face and sinus: Yes normal facial exam Eyes General: appearance normal, both eyes and all related structures Resp Effort & Inspection: normal respiratory effort Auscultation: clear to auscultation bilaterally Cardio Rhythm: regular rhythm Heart sounds: S1 normal heart sound present and S2 normal heart sound present GI Inspection: Yes normal to inspection Palpation (GI): Soft to palpation Assessment and Plan Assessment & Plan (1) COPD (chronic obstructive pulmonary disease): Code(s): J44.9 - Chronic obstructive pulmonary disease, unspecified Plan: Continue Spiriva albuterol p.r.n. and tobacco quitting discussed with the patient (2) Polycythemia: Comment: Secondary to tobacco, negative hematological workup with Dr. Palafox Code(s): D75.1 - Secondary polycythemia (3) DM type 2 (diabetes mellitus, type 2): Onset Date: ~2020 Code(s): E11.9 - Type 2 diabetes mellitus without complications Plan: A1c is 5.3, continue ADA diet increase physical activity weight loss discussed with the patient, follow-up in 6 months with a fasting labs before Orders: Orders Comprehensive [place]. Panel Fast 6 Months D75.1 - Secondary polycythemia, E11.9 - Type 2 diabetes mellitus without complications, J44.9 - Chronic obstructive pulmonary disease, unspecified Complete Blood Count Auto Diff 6 Months D75.1 - Secondary polycythemia, E11.9 - Type 2 diabetes mellitus without complications, J44.9 - Chronic obstructive pulmonary disease, unspecified Lipid Panel 6 Months D75.1 - Secondary polycythemia, E11.9 - Type 2 diabetes mellitus without complications, J44.9 - Chronic obstructive pulmonary disease, unspecified Hemoglobin A1c 6 Months D75.1 - Secondary polycythemia, E11.9 - Type 2 diabetes mellitus without complications, J44.9 - Chronic obstructive pulmonary disease, unspecified IRON PROFILE 6 Months D75.1 - Secondary polycythemia, E11.9 - Type 2 diabetes mellitus without complications, J44.9 - Chronic obstructive pulmonary disease, unspecified Medications: New Spiriva with HandiHaler (tiotropium bromide) puncture 1 cap using device; one dose = 2 inhalations 1 cap inhalation DAILY 90 inhalations 3RF NS Coding Level of Care Code Est Pt Level 4 (68234) Diagnoses COPD (chronic obstructive pulmonary disease) J44.9 Polycythemia D75.1 DM type 2 (diabetes mellitus, type 2) E11.9
== END 2023-01-29 11:28 | disposition home or self-care (01) ==
PROVIDERS: PCP Internal Medicine; Visit Provider Internal Medicine
DX: J44.9 Chronic obstructive pulmonary disease, unspecified (principal); D75.1 Secondary polycythemia; E11.9 Type 2 diabetes mellitus without complications
CPT/HCPCS: 99214

== ENCOUNTER 2023-06-05 08:19 | Outpatient (AMB) | payer OTHER, SELFPAY ==
--- NOTE | 2023-06-05 09:35 | AM.OFFVISNUR ---
Intake Intake Visit Reasons: MMR booster Intake Note: Pt arrived for MMR booster. Titer was low in 2021, rechecked recently for pre-employment testing at [facility]. Lab results from [facility] were provided and will be scanned into the chart. Note completed and IMM record faxed to [facility] [employer] per pt request. Allergies monosodium glutamate Allergy (Intermediate, Verified 01/29/23 10:24) ITCHING/HEADACHE egg Allergy (Verified 01/29/23 10:24) Diarrhea Immunizations M-M-R II (PF) 1,000-12,500 TCID50/0.5 mL subcutaneous solution Performing Provider: Graciela Mg MD Performing Location: [facility] [place] [facility] Administered by: Donya Denton RN on 06/05/23 09:46 Dose Route Admin Location Dispensed Lot Number Expiration Date NDC Used Car Sales Manager 0.5 mL subcut Left Arm 0.5 mL [id number] 11/15/23 0360-2473-30 [employer] D VIS Given Date VIS Provided VIS Publication Date 06/05/23 Single Vaccine 20 Eligibility Eligibility Date Funding Source Not [facility] Eligible 06/05/23 Private Administration Comments: Sterile Diluent Lot #[id number], exp 09/30/2024 Coding Assessment & Plan Assessment & Plan Orders: Orders MMR Immunization Today Z23 - Encounter for immunization Medications: New M-M-R II (PF) (measles,mumps,rubella vacc(PF)) 0.5 mL subcut ONCE 1 ea 0RF NS Z23 - Encounter for immunization
== END 2023-06-05 08:51 | disposition home or self-care (01) ==
PROVIDERS: PCP Internal Medicine; Visit Provider Internal Medicine
DX: Z23 Encounter for immunization (principal)
CPT/HCPCS: 90471; 90707

== ENCOUNTER 2023-06-05 08:39 | Outpatient (REF) | payer OTHER, SELFPAY ==
[2023-06-05 10:20] LABS: MANUAL DIFF FLAG NO
[2023-06-05 10:34] LABS: Basophils Absolute Auto 0.1 X10*3/uL (0.0-0.2); Basophils Percent Auto 0.7 % (0-2); Eosinophils Absolute Auto 0.1 X10*3/uL (0.0-0.4); Eosinophils Percent Auto 1.3 % (0-4); Hematocrit 47.5 % (37.0-47.0); Hemoglobin 15.3 g/dl (12.0-16.0); Imm Gran Abs Auto 0.02 X10*3/uL (0.00-0.03); Imm Gran Pct Auto 0.3 % (0.0-0.4); Lymphocytes Absolute Auto 2.2 X10*3/uL (1.2-4.9); Lymphocytes Percent Auto 31.2 % (20-40); Mean Corpuscular HGB Conc 32.2 g/dl (31.0-35.0); Mean Corpuscular Hemoglobin 28.2 pg (27.0-33.0); Mean Corpuscular Volume 87.6 fL (80.0-98.0); Mean Platelet Volume 9.2 fL (9.4-12.3); Monocytes Absolute Auto 0.4 X10*3/uL (0.1-1.2); Monocytes Percent Auto 5.5 % (2-11); Neutrophils Absolute Auto 4.3 x10*3/uL (2.0-8.3); Platelet Count 303 X10*3/uL (160-400); Red Blood Count 5.42 X10*6/uL (4.20-5.50); Red Cell Distribution Width 12.8 % (11.0-16.0)
[2023-06-05 10:37] LABS: Estimated Average Glucose 111 mg/dL; Hemoglobin A1c % 5.5 % (<6.0)
[2023-06-05 11:08] LABS: Free T4 (Free Thyroxine) 0.95 ng/dL (0.71-1.85)
[2023-06-05 11:23] LABS: Alanine Aminotransferase 14 U/L (0-31); Albumin Level 4.7 g/dL (3.5-5.0); Alkaline Phosphatase 82 U/L (39-117); Anion Gap 12 (12-20); Aspartate Amino Transferase 16 U/L (5-31); Bilirubin Total 0.9 mg/dL (0.0-1.0); Blood Urea Nitrogen 13 mg/dL (9-16); Calcium 9.9 mg/dL (8.4-10.2); Carbon Dioxide 29 mmol/L (22-29); Chloride 104 mmol/L (96-108); Cholesterol 189 mg/dL (<200); Estimated Glomerular Filt Rate > 60; Glucose Fasting 92 mg/dL (60-99); HDL Cholesterol 56 mg/dL (>40); Iron 103 mcg/dL (30-160); LDL Cholesterol Calculated 112 mg/dL (<100); Percent Iron Saturation 32 % (15-50); Potassium 4.1 mmol/L (3.3-5.1); Sodium 141 mmol/L (135-145); Total Iron Binding Capacity 325 mcg/dL (228-428); Total Protein 7.6 g/dL (6.5-8.0); Triglycerides 108 mg/dL (<150); Unsaturated Iron Binding 222 ug/dL
[2023-06-05 11:41] LABS: Thyroid Stimulating Hormone 2.11 uIU/mL (0.32-4.0)
== END 2023-06-05 08:40 | disposition home or self-care (01) ==
LOC: HO.HMGCLDS 08:39
PROVIDERS: PCP Internal Medicine; Referring Provider Internal Medicine Endocrinology, Diabetes & Metabolism; Visit Provider Internal Medicine
DX: J44.9 Chronic obstructive pulmonary disease, unspecified (principal); D75.1 Secondary polycythemia; E11.9 Type 2 diabetes mellitus without complications; E04.1 Nontoxic single thyroid nodule
CPT/HCPCS: 36415; 80053; 80061; 83036; 83540; 84439; 84443; 85025

== ENCOUNTER 2023-07-04 07:41 | Outpatient (AMB) | payer OTHER, SELFPAY ==
[2023-07-04 07:43] VITALS: BP 144/64; PULSE 91; BMI 35.8
--- NOTE | 2023-07-04 07:43 | A.OFFVIS_ITS ---
Vital Signs 07/04/23 07:43 Height 4 ft 10 in Weight 171 lb 8.314 oz BMI 35.8 BP 144/64 H Blood Pressure Location Lt brachial Position Sitting Pulse 91 Pulse Source Pulse Oximeter Intake Visit Reasons: Dr. Matthews thyroid f/u-confirmed Intake Note: Patient present today for Thyroid follow up visit. Television Inspector Required: No Accompanied by: Self / Same As Patient Allergies acetaminophen [From Percocet] Allergy (Intermediate, Verified 07/04/23 07:51) Rash monosodium glutamate Allergy (Intermediate, Verified 07/04/23 07:51) ITCHING/HEADACHE oxycodone [From Percocet] Allergy (Intermediate, Verified 07/04/23 07:51) Rash egg Allergy (Verified 07/04/23 07:51) Diarrhea HPI Comments Details: 57 YO F with who is seen in consultation for multinodular thyroid at the request of PCP. Was initially diagnosed with multinodular thyroid in 2 yrs ago . Never saw endo before . Currently complains of dysphagia but no hoarseness of voice. Has sometimes sensation of swelling in the neck or difficulty breathing while lying flat. Has any tenderness in the right side neck. Denies any palpitations, tremors, weight loss, frequent bowel movements. Denies any ocular complaints, blurred or double vision. Has hair loss, -dry skin, -heat or cold intolerance, -weight gain, -confusion. Denies any history of head or neck irradiation. Denies any family history of thyroid cancer. No hx of thyroid problems Had biopsy of nodules in the past. Thyroid US:CLINICAL INFORMATION: Nontoxic single thyroid nodule. COMPARISON: Ultrasound soft tissue head/neck thyroid dated 06/14/2021 and 10/29/2020. TECHNIQUE: Linear transducer grayscale and color Doppler examination with attention to the region of the thyroid. Difficult exam secondary to low-lying thyroid. FINDINGS: ? SIZE: Measurements of the thyroid lobes and nodules are given in sagittal, anteroposterior and transverse dimensions respectively. Right Thyroid Lobe: 5.2 x 4.2 x 2.6 cm, volume 29.7 mL. Previously 5.6 x 4.2 x 2.5 cm, volume 31.1 mL. Parenchyma: The gland echotexture is heterogeneous. Thyroid vascularity is normal. Left Thyroid Lobe: 5.0 x 2.0 x 2.0 cm, volume 10.5 mL. Previously 5.1 x 2.2 x 1.6 cm, volume 9.6 mL. Parenchyma: The gland echotexture is heterogeneous. Thyroid vascularity is normal. Isthmus: 0.6 cm in maximum AP dimension. Previously 0.8 cm. Estimated total number of nodules greater than or equal to 1 cm: 4. Work Station Support Specialist nodules are described as follows: 1.? Location: Right mid. ?? ? Size: 3.8 x 3.3 x 2.4 cm, volume 15.7 mL. ?? ? Previously: 3.4 x 2.0 x 2.2 cm, volume 7.8 mL. ?? ? Nodule characteristics: ?? ? Composition: Solid (2). ?? ? Echogenicity: Isoechoic (1). ?? ? Shape: Taller than wide (3). ?? ? Margins: Lobulated (2). ?? ? Echogenic Foci: None (0).? ACR TI-RADS total points: 8 Previous: 3 ?? ? ACR TI-RADS category: 5 Previous: 3 ? Significant change in size (>/= 20% in 2 dimensions and minimal increase of 2 mm or 50% or greater increase in volume): Yes ?? ? Change in features: Yes ?? ? Change in ACR TI-RADS risk category: Yes 2.? Location: Right mid anterior. ?? ? Size: 1.5 x 0.4 x 1.0 cm, volume 0.31 mL. ?? ? Previously: New since the previous study. ?? ? Nodule characteristics: ?? ? Composition: Solid (2). ?? ? Echogenicity: Isoechoic (1). ?? ? Shape: Not taller than wide (0). ?? ? Margins: Ill-defined (0). ?? ? Echogenic Foci: None (0).? ACR TI-RADS total points: 3 ?? ? ACR TI-RADS category: 3 3.? Location: Right inferior. ?? ? Size: 1.3 x 1.1 x 1.3 cm, volume 1.05 mL. ?? ? Previously: 1.4 x 1.1 x 1 4 cm, volume 1.00 mL. ?? ? Nodule characteristics: ?? ? Composition: Solid (2). ?? ? Echogenicity: Cannot be determined (1). ?? ? Shape: Not taller than wide (0). ?? ? Margins: Smooth (0). ?? ? Echogenic Foci: Peripheral calcifications (2).? ACR TI-RADS total points: 5 Previous: 5 ?? ? ACR TI-RADS category: 4 Previous: 4 ? Significant change in size (>/= 20% in 2 dimensions and minimal increase of 2 mm or 50% or greater increase in volume): No ?? ? Change in features: No ?? ? Change in ACR TI-RADS risk category: No 4.? Location: Left mid. ?? ? Size: 1.0 x 1.0 x 0.9 cm, volume 0.47 mL. ?? ? Previously: 0.9 x 1.1 x 0.8 cm, volume 0.42 mL. ?? ? Nodule characteristics: ?? ? Composition: Solid (2). ?? ? Echogenicity: Hypoechoic (2). ?? ? Shape: Taller than wide (3). ?? ? Margins: Ill-defined (0). ?? ? Echogenic Foci: None (0).? ACR TI-RADS total points: 7 Previous: 7 ?? ? ACR TI-RADS category: 5 Previous: 5 ? Significant change in size (>/= 20% in 2 dimensions and minimal increase of 2 mm or 50% or greater increase in volume): No ?? ? Change in features: No ?? ? Change in ACR TI-RADS risk category: No 5.? Location: Left mid lateral. ?? ? Size: 0.8 x 0.6 x 0.6 cm, volume 0.17 mL. ?? ? Previously: New since the previous study. ?? ? Nodule characteristics: ?? ? Composition: Solid (2). ?? ? Echogenicity: Hypoechoic (2). ?? ? Shape: Not taller than wide (0). ?? ? Margins: Ill-defined (0). ?? ? Echogenic Foci: None (0).? ACR TI-RADS total points: 4 ?? ? ACR TI-RADS category: 4 NODES: No lymphadenopathy is seen in the tissue surrounding the thyroid gland. Labs: FNA of the right mid nodule showed ?Follicular lesion of undetermined significance (category 3). Status post right lobectomy with benign pathology. [facility] [place] Medical History (Updated 01/29/23 @ 12:48 by Graciela Mg MD) Trigger finger of right hand Hand pain, right Osteoarthritis Annual physical exam Personal history of nicotine dependence Obesity DM type 2 (diabetes mellitus, type 2) (~2020) Polycythemia Tobacco consumption Thyroid nodule Cervical spine degeneration Surgical History (Updated 07/04/23 @ 07:51 by JERRY Taylor) History of thyroid surgery History of cataract surgery History of hernia repair (~2001) History of vaginal hysterectomy (~2003) History of cervical discectomy (~2007) History of carpal tunnel release (~2010) History of colonoscopy (~2015) Family History Father Alzheimer's dementia Mother Lung cancer Sister Lung cancer Brother Other Substance use disorder Social History Household Members: Spouse and Family Household Members Other:: at [place], Housing: House Are you a primary care rep to a significant other at home: No Do you presently have visiting nurse or other home services: No Alcohol intake: current Alcohol intake frequency: holidays/special occasions only Patient Tobacco Use Status: Current everyday Tobacco user Tobacco use type: Cigarette Cigarette Packs Per Day: 0.75 Years Smoked: 39yrs (onset 16, 1/2-1ppd x39yrs, 30PYH) e-Cigarette/Vaping Use: Never Used service: No Current occupational status: employed and unemployed Cognitive needs: No Hearing needs: No Vision needs: Yes Physical Exam Vital Signs: Last Vital Signs Pulse 91 07/04/23 07:43 BP 144/64 H 07/04/23 07:43 BMI result Body Mass Index 35.8 Const Other: Healing scar status post right lobectomy. Left lobe was wrapped the presence of any palpable nodules Assessment & Plan Assessment & Plan (1) Thyroid nodule: Comment: (Right lobe - 3 nodules - 2.2 cm, 1.4 cm and 1.4 cm), seen by Endo in 11/08, repeated US 07/09 stable Code(s): E04.1 - Nontoxic single thyroid nodule Category: Medical Plan: This is a 57-year-old white female with history of multinodular goiter with dominant left thyroid nodule status post left lobectomy with benign pathology.. She appears to be clinically and biochemically euthyroid. Plan is to have patient returned to the care of her primary care provider. She has a nodule in the right lobe which is subcentimeter and benign-appearing. Perhaps repeat thyroid ultrasound could be obtained by the patient's primary care provider about 1-2 years time. If there is any significant change in the size or characteristics of the right nodule, the patient referred back to endocrinology Coding Level of Care Code Est Pt Level 3 (99441) Diagnoses Thyroid nodule E04.1
== END 2023-07-04 08:23 | disposition home or self-care (01) ==
PROVIDERS: PCP Internal Medicine; Visit Provider Internal Medicine Endocrinology, Diabetes & Metabolism
DX: E04.1 Nontoxic single thyroid nodule (principal)
CPT/HCPCS: 99213

== ENCOUNTER → 2023-07-04 07:41 | Outpatient (BNVA) | payer OTHER, SELFPAY | PROVIDERS: PCP Internal Medicine; Visit Provider Internal Medicine Endocrinology, Diabetes & Metabolism ==

== ENCOUNTER 2023-07-10 08:01 | Outpatient (REF) | payer OTHER, SELFPAY ==
--- NOTE | ~2023-07-10 | MM_ITS ---
EXAMINATION: MM SCREENING DIGITAL BREAST TOMOSYNTHESIS, BILATERAL CLINICAL INFORMATION: Screening. Asymptomatic. COMPARISON: Mammography: This study is compared with prior exams dating back to 2016. TECHNIQUE: Digital breast tomosynthesis is performed in both the craniocaudal and mediolateral oblique views along with computer-aided detection (CAD). Synthesized 2D images are generated from the tomosynthesis. FINDINGS: There are scattered areas of fibroglandular density (ACR BI-RADS breast composition Category b). There are no significant masses, abnormal calcifications, or other abnormalities. MM/MM tomosynthesis screening BI IMPRESSION: No mammographic evidence of malignancy. ASSESSMENT: BI-RADS BI-RADS 1 - Negative RECOMMENDATION: Routine annual mammography screening. 1 year F/U This examination should not preclude the clinical evaluation of a suspicious palpable abnormality. This patient's information was entered into a reminder system with a target due date for their next mammogram.
== END 2023-07-10 08:02 | disposition home or self-care (01) ==
LOC: HO.MAMMO 08:01
PROVIDERS: PCP Internal Medicine; Visit Provider Internal Medicine
DX: Z12.31 Encounter for screening mammogram for malignant neoplasm of breast (principal)
CPT/HCPCS: 77063; 77067

== ENCOUNTER → 2023-07-10 08:30 | Outpatient (BNV) | payer OTHER, SELFPAY | PROVIDERS: PCP Internal Medicine; Visit Provider Radiology Diagnostic Radiology | DX: Z12.31 Encounter for screening mammogram for malignant neoplasm of breast (principal) | CPT/HCPCS: 77063; 77067 ==

== ENCOUNTER 2023-07-10 09:35 | Outpatient (AMB) | payer OTHER, SELFPAY ==
[2023-07-10 09:36] VITALS: BP 112/50; PULSE 83; O2SAT 93; BMI 34.9
--- NOTE | 2023-07-10 09:36 | MHC.PC.OV ---
Vital Signs 07/10/23 09:36 Height 4 ft 10 in Weight 167 lb BMI 34.9 BP 112/50 L Blood Pressure Location Lt brachial Position Sitting Pulse 83 Pulse Source Pulse Oximeter Pulse Oximetry (%) 93 Oxygen Delivery Method Room Air Intake Visit Reasons: DM F/U Intake Note: Pt is here today for her f/u DM Allergies acetaminophen [From Percocet] Allergy (Intermediate, Verified 07/10/23 09:39) Rash monosodium glutamate Allergy (Intermediate, Verified 07/10/23 09:39) ITCHING/HEADACHE oxycodone [From Percocet] Allergy (Intermediate, Verified 07/10/23 09:39) Rash egg Allergy (Verified 07/10/23 09:39) Diarrhea Medication List - Last Reconciled 07/10/23 by Graciela Mg MD acetaminophen (Tylenol Extra Strength) 1,000 mg (2 x 500 mg) PO QID PRN albuterol sulfate 90 mcg/actuation (ProAir HFA) 2 puffs inhalation Q6H PRN blood sugar diagnostic ([employer] Verio test strips) test blood sugars 3 times per day ketoconazole 2% 1 appl topical DAILY lancets ([employer] Delica Lancets) test blood sugars 3 times per day metformin 500 mg PO BID triamcinolone acetonide 0.025% 1 appl topical BID Tobacco use date assessed: 07/10/23 Dental Screening Dental Screen Date: 07/10/23 Did you have a dental visit in the last 12 months?: Yes Did you have a dental problem in the last 6 months where you did not have access to dental care?: No Was dental information given to patient?: Patient has dentist HPI DM F/U HPI Details Patient presents for the follow-up of type 2 diabetes COPD status post partial thyroidectomy for thyroid nodule with benign pathology report. Patient is due for repeat chest CT to follow-up on lung nodules. She smokes a half a pack a day and is trying to quit [facility] Medical History Trigger finger of right hand Hand pain, right Osteoarthritis Annual physical exam Personal history of nicotine dependence Obesity DM type 2 (diabetes mellitus, type 2) (~2020) Polycythemia Tobacco consumption Thyroid nodule Cervical spine degeneration Surgical History History of thyroid surgery History of cataract surgery History of hernia repair (~2001) History of vaginal hysterectomy (~2003) History of cervical discectomy (~2007) History of carpal tunnel release (~2010) History of colonoscopy (~2015) Family History Father Alzheimer's dementia Mother Lung cancer Sister Lung cancer Brother Other Substance use disorder Social History Household Members: Spouse and Family Household Members Other:: RH at [place], Housing: House Are you a primary chiropractic care to a significant other at home: No Do you presently have visiting nurse or other home services: No Alcohol intake: current Alcohol intake frequency: holidays/special occasions only Patient Tobacco Use Status: Current everyday Tobacco user Tobacco use type: Cigarette Cigarette Packs Per Day: 0.75 Years Smoked: 39yrs (onset 16, 1/2-1ppd x39yrs, 30PYH) e-Cigarette/Vaping Use: Never Used service: No Current occupational status: employed and unemployed Cognitive needs: No Hearing needs: No Vision needs: Yes Questionnaire PHQ-9 Over the last 2 weeks, how often have you been bothered by any of the following problems? 1. Little interest or pleasure in doing things: not at all 2. Feeling down, depressed, or hopeless: not at all 3. Trouble falling or staying asleep, or sleeping too much: not at all 4. Feeling tired or having little energy: not at all 5. Poor appetite or overeating: not at all 6. Feeling bad about yourself - or that you are a failure or have let yourself or your family down: not at all 7. Trouble concentrating on things, such as reading the newspaper or watching television: not at all 8. Moving or speaking so slowly that other people could have noticed. Or the opposite - being so fidgety or restless that you have been moving around a lot more than usual: not at all 9. Thoughts that you would be better off or of hurting yourself in some way: not at all Total score: 0 Depression Screening Interpretation: Negative Depression Screening Done: Yes [id number] - PHQ-9 Billing: Yes Source: Developed by Drs. Khang Crain, Trinidad Renae, Ronan Barakat and colleagues, with an educational wilber from [employer]. Thrive Questionnaire Date Thrive assessed: 07/10/23 I am a: Patient What is your living situation today?: I have a steady place to live Within the past 12 months, did the food you bought not last and you didn't have the money to get more?: Never true Within the past 12 months, did you worry whether your food would run out before you got money to buy more?: Never true Do you have trouble paying for medicines?: No Do you have trouble getting transportation to medical appointments?: No Do you have trouble paying your heating and electricity bill?: No Do you have trouble taking care of your child, family member or friend?: No Do you have trouble with day-to-day activities such as bathing, preparing meals, shopping, managing finances, etc.?: No Are you currently unemployed and looking for a job?: No Are you interested in more education?: No THRIVE Score: 0 NATE-7 AMB Questionnaire NATE-7 Date NATE - 7 assessed: 07/10/23 Feeling nervous, anxious, or on edge: 1 = Several days Not being able to stop or control worryin = Several days Worrying too much about different things: 0 = Not at all Trouble relaxin = Not at all Being so restless that it is hard to sit still: 0 = Not at all Becoming easily annoyed or irritable: 0 = Not at all Feeling afraid as if something awful might happen: 0 = Not at all Total NATE-7 score (0-4 normal; 5-9 mild; 10-14 moderate; 15-21 severe): 2 Source: Developed by Drs. Khang Crain, Trinidad Renae, Ronan Barakat and colleagues, with an educational wilber from [employer]. Review of Systems Const All systems reviewed & are unremarkable except as noted in HPI and below ENT Reports no additional complaints Card Reports no additional complaints Resp Reports no additional complaints GI Reports no additional complaints Reports no additional complaints Physical exam (Primary Care) Vital Signs: Last Vital Signs Pulse 83 07/10/23 09:36 BP 112/50 L 07/10/23 09:36 Pulse Ox 93 07/10/23 09:36 Oxygen Delivery Method Room Air 07/10/23 09:36 BMI result Body Mass Index 34.9 Tobacco/Smoking Status: Tobacco use Status Tobacco use date assessed 07/10/23 07/10/23 09:40 Patient Tobacco Use Status Current everyday Tobacco 07/10/23 09:38 Tobacco use type Cigarette 07/10/23 09:38 e-Cigarette/Vaping Use Never Used 07/10/23 09:38 PHQ-9: PHQ-9 Score PHQ-9: Total score 0 07/10/23 09:42 Depression Screening Interpretation: Negative Thrive Assessment: Date of Thrive Assessment Date Thrive assessed 07/10/23 07/10/23 09:42 Const General: no acute distress HENMT Head: Yes normal to inspection Face and sinus: Yes normal facial exam Throat: Yes posterior oropharynx normal Neck Neck: Yes no lymphadenopathy and Yes supple Resp Effort & Inspection: normal respiratory effort Auscultation: diminished lung sounds Cardio Rhythm: regular rhythm Heart sounds: S1 normal heart sound present and S2 normal heart sound present Assessment and Plan Assessment & Plan (1) COPD (chronic obstructive pulmonary disease): Code(s): J44.9 - Chronic obstructive pulmonary disease, unspecified Plan: Patient declined using Spiriva and continues to use albuterol p.r.n.. Tobacco quitting discussed with the patient (2) Lung nodules: Comment: annual CT Code(s): R91.8 - Other nonspecific abnormal finding of lung field Plan: Scheduled follow-up CT of the chest (3) DM type 2 (diabetes mellitus, type 2): Onset Date: ~2020 Code(s): E11.9 - Type 2 diabetes mellitus without complications Plan: A1c is 5.5, ADA diet regular exercise discussed with the patient she will decrease metformin to 500 mg once a day follow-up in 3 months with a fasting labs before (4) Obesity: Comment: (Morbid Obesity) Code(s): E66.9 - Obesity, unspecified Plan: Decrease caloric intake and increase physical activity discussed with the patient (5) Thyroid nodule: Comment: (Right lobe - 3 nodules - 2.2 cm, 1.4 cm and 1.4 cm), STATUS POST PARTIAL THYROIDECTOMY 05/2023 Code(s): E04.1 - Nontoxic single thyroid nodule Plan: Follow-up with endocrinology p.r.n. monitor TSH level Orders: Orders Comprehensive [place]. Panel Fast 3 Months E04.1 - Nontoxic single thyroid nodule, E11.9 - Type 2 diabetes mellitus without complications, E66.9 - Obesity, unspecified, J44.9 - Chronic obstructive pulmonary disease, unspecified, R91.8 - Other nonspecific abnormal finding of lung field Hemoglobin A1c 3 Months E04.1 - Nontoxic single thyroid nodule, E11.9 - Type 2 diabetes mellitus without complications, E66.9 - Obesity, unspecified, J44.9 - Chronic obstructive pulmonary disease, unspecified, R91.8 - Other nonspecific abnormal finding of lung field TSH reflex Free T4 3 Months E04.1 - Nontoxic single thyroid nodule, E11.9 - Type 2 diabetes mellitus without complications, E66.9 - Obesity, unspecified, J44.9 - Chronic obstructive pulmonary disease, unspecified, R91.8 - Other nonspecific abnormal finding of lung field Medications: Changed From metformin 500 mg PO BID 90 tabs 3RF To metformin 500 mg PO .qd 90 tabs 3RF Refilled albuterol sulfate 90 mcg/actuation (ProAir HFA) 2 puffs inhalation Q6H PRN 8.5 grams 6RF Wheezing Coding Level of Care Code Est Pt Level 4 (69265) Diagnoses COPD (chronic obstructive pulmonary disease) J44.9 Lung nodules R91.8 DM type 2 (diabetes mellitus, type 2) E11.9 Obesity E66.9 Thyroid nodule E04.1
== END 2023-07-10 10:22 | disposition home or self-care (01) ==
PROVIDERS: PCP Internal Medicine; Visit Provider Internal Medicine
DX: J44.9 Chronic obstructive pulmonary disease, unspecified (principal); E11.9 Type 2 diabetes mellitus without complications; E66.9 Obesity, unspecified; Z68.34 Body mass index [BMI] 34.0-34.9, adult; R91.8 Other nonspecific abnormal finding of lung field; E04.1 Nontoxic single thyroid nodule
CPT/HCPCS: 99214

== ENCOUNTER 2023-07-31 08:05 | Outpatient (AMB) | payer OTHER, SELFPAY ==
[2023-07-31 08:06] VITALS: BP 120/62; PULSE 82; TEMP 36.8; O2SAT 94
--- NOTE | 2023-07-31 08:06 | MHC.OFFWIV ---
Intake Vital Signs 07/31/23 08:06 Height 4 ft 10 in BP 120/62 Blood Pressure Location Rt brachial Position Sitting Pulse 82 Pulse Source Pulse Oximeter Temp 98.3 F Temp Source Oral Pulse Oximetry (%) 94 Oxygen Delivery Method Room Air Intake Visit Reasons: EP cough 1 month Intake Note: pt is here for cough ongoing for over a month Patient Tobacco Use Status: Current everyday Tobacco user Allergies acetaminophen [From Percocet] Allergy (Intermediate, Verified 07/31/23 08:13) Rash monosodium glutamate Allergy (Intermediate, Verified 07/31/23 08:13) ITCHING/HEADACHE oxycodone [From Percocet] Allergy (Intermediate, Verified 07/31/23 08:13) Rash egg Allergy (Verified 07/31/23 08:13) Diarrhea Do you need a note to return to daycare/school/sports/work: No HPI HPI Comments History of Present Illness Details Patient is a 58-year-old female with a history of COPD who is an active smoker complaining of a cough for the past month. She states she saw her PCP 1 month ago and was told her lungs were clear she started taking Zyrtec daily at that point and increased her saline nasal spray 3 times a day from once a day. She states since then she has had this dry cough which leads her to coughing spells, she also endorses discomfort when she swallowing but denies any fevers, ear pain sinus pain, head congestion. She does admit to a fever of 101 yesterday but it went down with Tylenol. She states she is still smoking but is down to less than a half a pack per day. She states her cough is not worse when she lays down. [facility] Medical History Trigger finger of right hand Hand pain, right Osteoarthritis Annual physical exam Personal history of nicotine dependence Obesity DM type 2 (diabetes mellitus, type 2) (~2020) Polycythemia Tobacco consumption Thyroid nodule Cervical spine degeneration Surgical History History of thyroid surgery History of cataract surgery History of hernia repair (~2001) History of vaginal hysterectomy (~2003) History of cervical discectomy (~2007) History of carpal tunnel release (~2010) History of colonoscopy (~2015) Family History Father Alzheimer's dementia Mother Lung cancer Sister Lung cancer Brother Other Substance use disorder Social History Household Members: Spouse and Family Household Members Other:: RH at [place], Housing: House Are you a primary care coordinator to a significant other at home: No Do you presently have visiting nurse or other home services: No Alcohol intake: current Alcohol intake frequency: holidays/special occasions only Patient Tobacco Use Status: Current everyday Tobacco user Tobacco use type: Cigarette Cigarette Packs Per Day: 0.75 Years Smoked: 39yrs (onset 16, 1/2-1ppd x39yrs, 30PYH) e-Cigarette/Vaping Use: Never Used service: No Current occupational status: employed and unemployed Cognitive needs: No Hearing needs: No Vision needs: Yes Review of Systems Const All systems reviewed & are unremarkable except as noted in HPI and below Physical Exam Vital Signs: Last Vital Signs Temp 98.3 F 07/31/23 08:06 Pulse 82 07/31/23 08:06 BP 120/62 07/31/23 08:06 Pulse Ox 94 07/31/23 08:06 Oxygen Delivery Method Room Air 07/31/23 08:06 Const General: cooperative, healthy appearing, comfortable and no acute distress Orientation/consciousness: patient oriented x3 Limitations: no limitations HEENT Head: Yes normal to inspection Ears: external ears normal, TM normal on the left and unable to visualize TM (Cerumen in ear canal blocking TM) on the right General nose exam: Normal external nose present, Normal nares present and No nasal discharge present Face and sinus: Yes normal facial exam Mouth: Normal oral and palatal mucosa present and moist mucous membranes Throat: Yes tonsils normal, Yes uvula midline, Yes posterior oropharynx abnormal (Erythematous) and No cobblestoning Eyes General: appearance normal, both eyes and all related structures Neck Neck: Yes normal visual inspection Resp Effort & Inspection: normal respiratory effort, able to speak in complete sentences, Actively coughing, no respiratory distress, not tachypneic, no tripod positioning and no use of accessory muscles Auscultation: clear to auscultation bilaterally Cardio Rate: regular rate Rhythm: regular rhythm Heart sounds: normal S1 and S2 Skin General skin exam: no rashes or lesions noted Neuro General: patient oriented x3 Extrem General: Yes normal to inspection and Yes no clubbing, cyanosis or edema Assessment & Plan Assessment & Plan (1) COPD (chronic obstructive pulmonary disease): Code(s): J44.9 - Chronic obstructive pulmonary disease, unspecified Qualifiers: COPD type: COPD with acute lower respiratory infection Qualified Code(s): J44.0 - Chronic obstructive pulmonary disease with (acute) lower respiratory infection Plan Chest x-ray showed no acute cardiopulmonary disease, sent zpak to rx with COPD hx; treat symptoms with over the counter medications and gave work note for the next 2 days. Orders: Orders XR chest 2V Today R05.9 - Cough, unspecified Medications: New azithromycin take 500 mg today (day 1), then 250 mg for 4 days (days 2-5) PO 6 tabs 0RF Coding Level of Care Code Est Pt Level 4 (67944) Diagnoses Chronic obstructive pulmonary disease with acute lower respiratory infection J44.0 COPD type: COPD with acute lower respiratory infection
== END 2023-07-31 08:47 | disposition home or self-care (01) ==
PROVIDERS: PCP Internal Medicine; Visit Provider Physician Assistant
DX: J44.0 Chronic obstructive pulmonary disease with (acute) lower respiratory infection (principal)
CPT/HCPCS: 99214

== ENCOUNTER 2023-07-31 08:29 | Outpatient (REF) | payer OTHER, SELFPAY ==
--- NOTE | ~2023-07-31 | XR_ITS ---
EXAMINATION: XR CHEST CLINICAL INFORMATION: Cough unspecified COMPARISON: None available. TECHNIQUE: 2 views of the chest were obtained. FINDINGS: The lungs are hyperaerated but grossly clear and there are no pleural effusions. Heart and pulmonary vessels normal. XR/XR chest 2V IMPRESSION: No active disease.
== END 2023-07-31 08:30 | disposition home or self-care (01) ==
LOC: HO.HMGCX 08:29
PROVIDERS: Visit Provider Physician Assistant
DX: R05.9 Cough, unspecified (principal)
CPT/HCPCS: 71046

== ENCOUNTER 2023-10-01 08:04 | Outpatient (REF) | payer OTHER, SELFPAY ==
[2023-10-01 11:07] LABS: Alanine Aminotransferase 16 U/L (0-31); Albumin Level 4.7 g/dL (3.5-5.0); Alkaline Phosphatase 91 U/L (39-117); Anion Gap 12 (12-20); Aspartate Amino Transferase 17 U/L (5-31); Bilirubin Total 0.9 mg/dL (0.0-1.0); Blood Urea Nitrogen 13 mg/dL (9-16); Calcium 9.7 mg/dL (8.4-10.2); Carbon Dioxide 30 mmol/L (22-29); Chloride 102 mmol/L (96-108); Estimated Glomerular Filt Rate > 60; Glucose Fasting 103 mg/dL (60-99); Sodium 140 mmol/L (135-145); Total Protein 7.7 g/dL (6.5-8.0)
[2023-10-01 11:09] LABS: TSH reflex Free T4 1.84 uIU/mL (0.32-4.0)
[2023-10-01 11:14] LABS: Estimated Average Glucose 108 mg/dL; Hemoglobin A1c % 5.4 % (<6.0)
== END 2023-10-01 08:05 | disposition home or self-care (01) ==
LOC: HO.HMGCLDS 08:04
PROVIDERS: PCP Internal Medicine; Visit Provider Internal Medicine
DX: E04.1 Nontoxic single thyroid nodule (principal); E66.9 Obesity, unspecified; E11.9 Type 2 diabetes mellitus without complications; R91.8 Other nonspecific abnormal finding of lung field; J44.9 Chronic obstructive pulmonary disease, unspecified
CPT/HCPCS: 36415; 80053; 83036; 84443

== ENCOUNTER 2023-11-01 12:59 | Outpatient (AMB) | payer OTHER, SELFPAY ==
[2023-11-01 13:30] VITALS: BP 126/74; PULSE 72; O2SAT 98; BMI 35.9
--- NOTE | 2023-11-01 13:30 | MHC.PC.OV ---
Vital Signs 11/01/23 13:30 Height 4 ft 10 in Weight 172 lb BMI 35.9 BP 126/74 Blood Pressure Location Lt brachial Position Sitting Pulse 72 Pulse Source Pulse Oximeter Pulse Oximetry (%) 98 Oxygen Delivery Method Room Air Intake Visit Reasons: PE Intake Note: Pt is here today for PE. Allergies acetaminophen [From Percocet] Allergy (Intermediate, Verified 11/01/23 13:31) Rash monosodium glutamate Allergy (Intermediate, Verified 11/01/23 13:31) ITCHING/HEADACHE oxycodone [From Percocet] Allergy (Intermediate, Verified 11/01/23 13:31) Rash egg Allergy (Verified 11/01/23 13:31) Diarrhea Medication List - Last Reconciled 11/01/23 by Graciela Mg MD acetaminophen (Tylenol Extra Strength) 1,000 mg (2 x 500 mg) PO QID PRN albuterol sulfate 90 mcg/actuation (ProAir HFA) 2 puffs inhalation Q6H PRN blood sugar diagnostic ([employer] Verio test strips) test blood sugars 3 times per day ketoconazole 2% 1 appl topical DAILY lancets test blood sugars 3 times per day metformin 500 mg PO .qd triamcinolone acetonide 0.025% 1 appl topical BID Tobacco use date assessed: 11/01/23 Dental Screening Dental Screen Date: 07/10/23 HPI PE HPI Details Pt presents for PE. Pt c/o recurrent neck pain and stiffness for 1 month. Patient had 2 cervical spine surgeries in the past the last 14 years ago. She denies weakness or numbness in extremities. Type 2 diabetes is controlled on metformin. [facility], [facility] Medical History (Updated 11/01/23 @ 14:48 by Graciela Mg MD) Trigger finger of right hand Hand pain, right Osteoarthritis Annual physical exam Personal history of nicotine dependence Obesity DM type 2 (diabetes mellitus, type 2) (~2020) Polycythemia Tobacco consumption Thyroid nodule Cervical spine degeneration Surgical History History of thyroid surgery History of cataract surgery History of hernia repair (~2001) History of vaginal hysterectomy (~2003) History of cervical discectomy (~2007) History of carpal tunnel release (~2010) History of colonoscopy (~2015) Family History Father Alzheimer's dementia Mother Lung cancer Sister Lung cancer Brother Other Substance use disorder Social History Household Members: Spouse and Family Household Members Other:: RH at [place], Housing: House Are you a primary resident caregiver to a significant other at home: No Do you presently have visiting nurse or other home services: No Alcohol intake: current Alcohol intake frequency: holidays/special occasions only Patient Tobacco Use Status: Current everyday Tobacco user Tobacco use type: Cigarette Cigarette Packs Per Day: 0.75 Years Smoked: 39yrs (onset 16, 1/2-1ppd x39yrs, 30PYH) e-Cigarette/Vaping Use: Never Used service: No Current occupational status: employed and unemployed Cognitive needs: No Hearing needs: No Vision needs: Yes Questionnaire Thrive Questionnaire Date Thrive assessed: 10/25/23 I am a: Patient What is your living situation today?: I have a steady place to live Within the past 12 months, did the food you bought not last and you didn't have the money to get more?: I choose not to answer this question Within the past 12 months, did you worry whether your food would run out before you got money to buy more?: I choose not to answer this question Do you have trouble paying for medicines?: I choose not to answer this question Do you have trouble getting transportation to medical appointments?: I choose not to answer this question Do you have trouble paying your heating and electricity bill?: I choose not to answer this question Do you have trouble taking care of your child, family member or friend?: I choose not to answer this question Do you have trouble with day-to-day activities such as bathing, preparing meals, shopping, managing finances, etc.?: I choose not to answer this question Are you currently unemployed and looking for a job?: I choose not to answer this question Are you interested in more education?: I choose not to answer this question Please select the resources that you would like help with: None Currently or been in a relationship where the following occur: I choose not to answer THRIVE Score: 0 AUDIT C Alcohol Use Questionnaire (AUDIT-C) 1. How often do you have a drink containing alcohol?: Monthly or less Total Score: 1 NATE-7 AMB Questionnaire NATE-7 Date NATE - 7 assessed: 07/10/23 Source: Developed by Drs. Khang Crain, Trinidad Renae, Ronan Barakat and colleagues, with an educational wilber from [employer]. Review of Systems Const All systems reviewed & are unremarkable except as noted in HPI and below Eyes Reports no additional complaints ENT Reports no additional complaints Card Reports no additional complaints Resp Reports no additional complaints GI Reports no additional complaints Reports no additional complaints Physical exam (Primary Care) Vital Signs: Last Vital Signs Pulse 72 11/01/23 13:30 BP 126/74 11/01/23 13:30 Pulse Ox 98 11/01/23 13:30 Oxygen Delivery Method Room Air 11/01/23 13:30 BMI result Body Mass Index 35.9 Tobacco/Smoking Status: Tobacco use Status Tobacco use date assessed 11/01/23 11/01/23 13:34 Patient Tobacco Use Status Current everyday Tobacco 11/01/23 13:34 Tobacco use type Cigarette 11/01/23 13:34 e-Cigarette/Vaping Use Never Used 11/01/23 13:34 Thrive Assessment: Date of Thrive Assessment Date Thrive assessed 10/25/23 11/01/23 13:34 Currently or been in a relationship where the following occur: I choose not to answer Const General: no acute distress [facility] General nose exam: Normal external nose present Eyes General: appearance normal, both eyes and all related structures Neck Neck: Yes no lymphadenopathy and Yes supple Resp Effort & Inspection: normal respiratory effort Auscultation: clear to auscultation bilaterally Cardio Rhythm: regular rhythm Heart sounds: S1 normal heart sound present and S2 normal heart sound present GI Inspection: Yes normal to inspection Palpation (GI): Soft to palpation Percussion: Yes normal to percussion Auscultation: normal bowel sounds Back/Spine/Pelvis Other: There is decreased range of motion in C-spine, paraspinal tenderness in lower cervical region Assessment and Plan Assessment & Plan (1) Neck pain: Code(s): M54.2 - Cervicalgia Plan: For chronic neck pain patient will have physical therapy (2) COPD (chronic obstructive pulmonary disease): Comment: mild Code(s): J44.9 - Chronic obstructive pulmonary disease, unspecified Qualifiers: COPD type: COPD with acute lower respiratory infection Qualified Code(s): J44.0 - Chronic obstructive pulmonary disease with (acute) lower respiratory infection Plan: Tobacco quitting discussed with the patient (3) DM type 2 (diabetes mellitus, type 2): Onset Date: ~2020 Code(s): E11.9 - Type 2 diabetes mellitus without complications Plan: A1c is 5.4, ADA diet regular exercise discussed with the patient continue metformin follow-up in 6 months with a fasting labs before (4) Annual physical exam: Code(s): Z00.00 - Encounter for general adult medical examination without abnormal findings Plan: Well-balanced diet regular exercise weight loss discussed with the patient. She is up-to-date with the mammogram and colonoscopy (5) Personal history of nicotine dependence: Comment: (current smoker, onset 16, 2-1ppd x39yrs,30+PYH, +fam hx lung ca) , negative CT 04/2022, refused recheck 10/2023 Code(s): Z87.891 - Personal history of nicotine dependence Plan: Tobacco quitting discussed with the patient (6) Obesity: Comment: (Morbid Obesity) Code(s): E66.9 - Obesity, unspecified Plan: Weight loss discussed with the patient (7) Thyroid nodule: Comment: (Right lobe - 3 nodules - 2.2 cm, 1.4 cm and 1.4 cm), STATUS POST PARTIAL THYROIDECTOMY 05/2023 Code(s): E04.1 - Nontoxic single thyroid nodule Orders: Orders PT Evaluation and Treatment Today M54.2 - Cervicalgia Complete Blood Count Auto Diff 6 Months E04.1 - Nontoxic single thyroid nodule, E11.9 - Type 2 diabetes mellitus without complications, Z00.00 - Encounter for general adult medical examination without abnormal findings Hemoglobin A1c 6 Months E04.1 - Nontoxic single thyroid nodule, E11.9 - Type 2 diabetes mellitus without complications, Z00.00 - Encounter for general adult medical examination without abnormal findings Microalbumin, Random (w Creat) 6 Months E04.1 - Nontoxic single thyroid nodule, E11.9 - Type 2 diabetes mellitus without complications, Z00.00 - Encounter for general adult medical examination without abnormal findings Comprehensive [place]. Panel Fast 6 Months E04.1 - Nontoxic single thyroid nodule, E11.9 - Type 2 diabetes mellitus without complications, Z00.00 - Encounter for general adult medical examination without abnormal findings Lipid Panel 6 Months E04.1 - Nontoxic single thyroid nodule, E11.9 - Type 2 diabetes mellitus without complications, Z00.00 - Encounter for general adult medical examination without abnormal findings TSH reflex Free T4 6 Months E04.1 - Nontoxic single thyroid nodule, E11.9 - Type 2 diabetes mellitus without complications, Z00.00 - Encounter for general adult medical examination without abnormal findings Coding Level of Care Code Est Pt Prev Care 40-64y(91870) Diagnoses Neck pain M54.2 Chronic obstructive pulmonary disease with acute lower respiratory infection J44.0 COPD type: COPD with acute lower respiratory infection DM type 2 (diabetes mellitus, type 2) E11.9 Annual physical exam Z00.00 Personal history of nicotine dependence Z87.891 Obesity E66.9 Thyroid nodule E04.1
== END 2023-11-01 14:30 | disposition home or self-care (01) ==
PROVIDERS: PCP Internal Medicine; Visit Provider Internal Medicine
DX: Z00.00 Encounter for general adult medical examination without abnormal findings (principal); M54.2 Cervicalgia; J44.0 Chronic obstructive pulmonary disease with (acute) lower respiratory infection; E11.9 Type 2 diabetes mellitus without complications; Z87.891 Personal history of nicotine dependence; E66.9 Obesity, unspecified; E04.1 Nontoxic single thyroid nodule
CPT/HCPCS: 99396

== ENCOUNTER 2023-12-12 08:00 | Outpatient (RCR) | payer OTHER, SELFPAY ==
--- NOTE | 2023-11-19 08:10 | MHC.PT.EP ---
[facility] [place] Office [place] Office [place] Office [address] [phone] F: [phone] F: [phone] F: [phone] F: [phone] Physical Therapy Plan of Care Date of Evaluation: 11/19/23 Date of Surgery: 2006 Diagnosis: cervicalgia Assessment: Patient is a 58 year old R handed female who presents with s/s consistent with cervicalgia, neck pain. She works with daily job demands including [employer] employee. Patient past medical history includes cervical fusion, thyroid surgery in March, nicotine dependence and obesity. Current impairments include pain, posture, ROM, strength, activity tolerance and functional mobility. Functional limitations include decreased ability to stand, sleep, drive, lift, carry, push, pull, and dress. Patient is motivated with good rehab potential. Skilled PT will address impairments and functional limitations in order to achieve goals. Frequency and Duration: The patient will be seen 2x/week for 5 weeks Short Term Goals: I with HEP - 2 weeks AROM rotation 50 b/l - 3 weeks Min TTP, TrP absent in LS/UT - 3 weeks Interactive Graphic Designer Goals: PACE absent x1 week - 5 weeks NPDI 20% or less - 5 weeks Max pain with daily routine 10 - 5 weeks AROM rotation 55 b/l - 5 weeks Treatment Plan: Modalities to reduce pain, spasms and effusion. Manual therapy to restore motion and function. Therapeutic exercise to improve strength and flexibility. Neuromuscular re-education for posture and balance. Therapeutic activities to return to functional activities of daily living. Electronically signed by: Adrian Chery, PT Please sign and return to therapist. Thank you for your referral.
--- NOTE | 2024-03-18 10:27 | MHC.PT.DC ---
[facility] [place] Office [place] Office [place] Office [address] Elise Blanton [address] [phone] F: [phone] F: [phone] F: [phone] F: [phone] Physical Therapy Discharge Report Diagnosis: cervicalgia Date of Surgery: 2006 Date of Evaluation: 11/19/23 Date of Discharge: 12/19/23 Treatments to Date: 6 Cancellations to Date: No Shows to Date: Discharge Status: Independent with HEP Recommend MD Follow-up Discharge Summary: Pt will return to MD for next best steps in management. 12/12/23: due to lack of sustained progress and progression of distal s/s, we will hold PT and refer to referring MD at this time. 12/10/23: so far over the course of skilled PT, we have been unable to progress or achieve sustained progress due to variability and severity of s/s. Should the lack of progress continue through next visit, we will likely refer back to referring PT and hold PT at that time. 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 No change in R U.E feeling like its cold and . Pt had reduced c/s pain after RX. 11/28/23: held on progression due to L sided discomfort. tissue tension persists. 11/25/23: pt progressed with manual intervention and self thera cane. encouraged to look into one for personal use should results seem beneficial. Patient is a 58 year old R handed female who presents with s/s consistent with cervicalgia, neck pain. She works with daily job demands including [employer] employee. Patient past medical history includes cervical fusion, thyroid surgery in March, nicotine dependence and obesity. Current impairments include pain, posture, ROM, strength, activity tolerance and functional mobility. Functional limitations include decreased ability to stand, sleep, drive, lift, carry, push, pull, and dress. Patient is motivated with good rehab potential. Skilled PT will address impairments and functional limitations in order to achieve goals. Electronically signed by: Adrian Chery, PT Please sign and return to therapist. Thank you for your referral.
== END 2024-03-18 10:27 | disposition home or self-care (01) ==
LOC: HO.PTCHIC 08:00
PROVIDERS: PCP Internal Medicine; Visit Provider Internal Medicine
DX: M54.2 Cervicalgia (principal)
CPT/HCPCS: 97014; 97110; 97140; 97163

== ENCOUNTER 2023-12-12 12:20 | Outpatient (AMB) | payer OTHER, SELFPAY ==
[2023-12-12 12:23] VITALS: BP 132/80; PULSE 73; O2SAT 97; BMI 37.0
--- NOTE | 2023-12-12 12:23 | MHC.PC.OV ---
Vital Signs 12/12/23 12:23 Height 4 ft 10 in Weight 177 lb BMI 37.0 BP 132/80 Blood Pressure Location Lt brachial Position Sitting Pulse 73 Pulse Source Pulse Oximeter Pulse Oximetry (%) 97 Oxygen Delivery Method Room Air Intake Visit Reasons: neck pain Intake Note: Pt is here today for a follow up visit on neck pain. Pt states that she has been having PT and the neck is feeling worst and she has numbness and tingling in her R arm. Allergies acetaminophen [From Percocet] Allergy (Intermediate, Verified 12/12/23 12:31) Rash monosodium glutamate Allergy (Intermediate, Verified 12/12/23 12:31) ITCHING/HEADACHE oxycodone [From Percocet] Allergy (Intermediate, Verified 12/12/23 12:31) Rash egg Allergy (Verified 12/12/23 12:31) Diarrhea Medication List - Last Reconciled 12/12/23 by Graciela Mg MD acetaminophen (Tylenol Extra Strength) 1,000 mg (2 x 500 mg) PO QID PRN albuterol sulfate 90 mcg/actuation (ProAir HFA) 2 puffs inhalation Q6H PRN blood sugar diagnostic ([employer] Verio test strips) test blood sugars 3 times per day ketoconazole 2% 1 appl topical DAILY lancets test blood sugars 3 times per day metformin 500 mg PO .qd triamcinolone acetonide 0.025% 1 appl topical BID Tobacco use date assessed: 11/01/23 Dental Screening Dental Screen Date: 07/10/23 HPI neck pain HPI Details Pt presents c/o worsening of chronic neck pain and stiffness numbness and tingling sensation radiating to right arm and right arm weakness getting progressively worse. Patient had cervical spine surgeries over 10 years ago. She tried physical therapy without significant improvement. Patient denies change in balance, weakness or numbness in lower extremities. Diabetes is stable on metformin. [facility]LY [facility] Medical History (Updated 12/12/23 @ 12:48 by Graciela Mg MD) Nicotine dependence, cigarettes, uncomplicated Trigger finger of right hand Hand pain, right Osteoarthritis Obesity DM type 2 (diabetes mellitus, type 2) (~2020) Polycythemia Thyroid nodule Cervical spine degeneration Surgical History History of partial thyroidectomy (~2023) History of cataract surgery History of hernia repair (~2001) History of vaginal hysterectomy (~2003) History of cervical discectomy (~2007) History of carpal tunnel release (~2010) History of colonoscopy (~2015) Family History Father Alzheimer's dementia Mother Lung cancer Sister Lung cancer Brother Other Substance use disorder Social History Household Members: Spouse and Family Household Members Other:: RH at [place], Housing: House Are you a primary career services assistant to a significant other at home: No Do you presently have visiting nurse or other home services: No Alcohol intake: current Alcohol intake frequency: holidays/special occasions only Patient Tobacco Use Status: Current everyday Tobacco user Tobacco use type: Cigarette Cigarette Packs Per Day: 0.75 Years Smoked: 39yrs (onset 16, 1/2-1ppd x39yrs, 30PYH) e-Cigarette/Vaping Use: Never Used service: No Current occupational status: employed and unemployed Cognitive needs: No Hearing needs: No Vision needs: Yes Questionnaire PHQ-9 Over the last 2 weeks, how often have you been bothered by any of the following problems? 1. Little interest or pleasure in doing things: not at all 2. Feeling down, depressed, or hopeless: not at all 3. Trouble falling or staying asleep, or sleeping too much: several days 4. Feeling tired or having little energy: not at all 5. Poor appetite or overeating: not at all 6. Feeling bad about yourself - or that you are a failure or have let yourself or your family down: several days 7. Trouble concentrating on things, such as reading the newspaper or watching television: several days 8. Moving or speaking so slowly that other people could have noticed. Or the opposite - being so fidgety or restless that you have been moving around a lot more than usual: several days 9. Thoughts that you would be better off or of hurting yourself in some way: not at all Total score: 4 Depression Screening Interpretation: Negative Depression Screening Done: Yes 77674 - PHQ-9 Billing: Yes Source: Developed by Drs. Khang Crain, Ronan Messer and colleagues, with an educational wilber from [employer]. Thrive Questionnaire Date Thrive assessed: 10/25/23 Do you have trouble paying your heating and electricity bill?: I choose not to answer this question Do you have trouble taking care of your child, family member or friend?: I choose not to answer this question Do you have trouble with day-to-day activities such as bathing, preparing meals, shopping, managing finances, etc.?: I choose not to answer this question Are you currently unemployed and looking for a job?: I choose not to answer this question Are you interested in more education?: I choose not to answer this question Please select the resources that you would like help with: None Currently or been in a relationship where the following occur: I choose not to answer THRIVE Score: 0 AUDIT C Alcohol Use Questionnaire (AUDIT-C) 2. How many drinks containing alcohol do you have on a typical day when you are drinking?: 1 or 2 3. How often do you have six or more drinks on one occasion?: Never Total Score: 0 NATE-7 AMB Questionnaire NATE-7 Date NATE - 7 assessed: 07/10/23 Feeling nervous, anxious, or on edge: 0 = Not at all Not being able to stop or control worryin = Not at all Worrying too much about different things: 0 = Not at all Trouble relaxin = Several days Being so restless that it is hard to sit still: 0 = Not at all Becoming easily annoyed or irritable: 1 = Several days Feeling afraid as if something awful might happen: 0 = Not at all Total NATE-7 score (0-4 normal; 5-9 mild; 10-14 moderate; 15-21 severe): 2 Source: Developed by Drs. Khang Crain, Ronan Messer and colleagues, with an educational wilber from [employer]. NATE-7 Assessment Billing NATE-7 Assessment Tool: NATE-7 Assessment 75682 Review of Systems Const All systems reviewed & are unremarkable except as noted in HPI and below Eyes Reports no additional complaints ENT Reports no additional complaints Card Reports no additional complaints Resp Reports no additional complaints GI Reports no additional complaints Physical exam (Primary Care) Vital Signs: Last Vital Signs Pulse 73 12/12/23 12:23 BP 132/80 12/12/23 12:23 Pulse Ox 97 12/12/23 12:23 Oxygen Delivery Method Room Air 12/12/23 12:23 BMI result Body Mass Index 37.0 Tobacco/Smoking Status: Tobacco use Status Tobacco use date assessed 11/01/23 12/12/23 12:23 Patient Tobacco Use Status Current everyday Tobacco 12/12/23 12:23 Tobacco use type Cigarette 12/12/23 12:23 e-Cigarette/Vaping Use Never Used 12/12/23 12:23 PHQ-9: PHQ-9 Score PHQ-9: Total score 4 12/12/23 12:33 Depression Screening Interpretation: Negative Thrive Assessment: Date of Thrive Assessment Date Thrive assessed 10/25/23 12/12/23 12:23 Currently or been in a relationship where the following occur: I choose not to answer Const General: no acute distress HENMT Head: Yes normal to inspection Neck Other: There is a decreased range of motion cervical spine paraspinal tenderness bilaterally Resp Effort & Inspection: normal respiratory effort Auscultation: clear to auscultation bilaterally Cardio Rhythm: regular rhythm Heart sounds: S1 normal heart sound present and S2 normal heart sound present Neuro Cranial nerves: Yes CN's II-XII intact bilaterally Motor exam (neuro): 5/5 motor strength present throughout Romberg Test: Negative Coding Level of Care Code Est Pt Level 3 (44075) Diagnoses Cervical vertebral fusion M43.22 Cervical radiculopathy M54.12 Additional Codes NATE-7 Assessment Billing - NATE-7 Assessment Tool: NATE-7 Assessment 95910 ([id number]) Assessment & Plan Assessment & Plan (1) Cervical vertebral fusion: Comment: C3-4 -5 osseous bridging , C6-7 mod deg disc bulge, L paracental protrusion >20 yrs, Code(s): M43.22 - Fusion of spine, cervical region Category: Medical Plan: See below, start 300 mg of gabapentin (2) Cervical radiculopathy: Code(s): M54.12 - Radiculopathy, cervical region Category: Medical Plan: For worsening cervical radiculopathy C-spine MRI will be obtained patient will be referred to neurosurgeon Dr. Harrington. Gabapentin 300 mg q.h.s. will be started Orders: Orders MR cervical spine wo con Today M43.22 - Fusion of spine, cervical region, M54.12 - Radiculopathy, cervical region Referrals Neurosurgery Referral M43.22 - Fusion of spine, cervical region, M54.12 - Radiculopathy, cervical region Medications: New gabapentin 300 mg PO BEDTIME 30 caps 3RF
== END 2023-12-12 12:58 | disposition home or self-care (01) ==
PROVIDERS: PCP Internal Medicine; Visit Provider Internal Medicine
DX: M43.22 Fusion of spine, cervical region (principal); M54.12 Radiculopathy, cervical region

== ENCOUNTER → 2023-12-12 12:20 | Outpatient (BNVA) | payer OTHER, SELFPAY | PROVIDERS: PCP Internal Medicine; Visit Provider Internal Medicine | DX: M43.22 Fusion of spine, cervical region (principal); M54.12 Radiculopathy, cervical region | CPT/HCPCS: 96127 ==

== ENCOUNTER 2024-01-28 11:34 | Outpatient (AMB) | payer OTHER, SELFPAY ==
--- NOTE | 2024-01-28 13:00 | AM.OFFWIN_ITS ---
Intake Vital Signs 01/28/24 13:01 Weight 182 lb BP 122/76 Blood Pressure Location Lt brachial Position Sitting Pulse 76 Pulse Source Pulse Oximeter Temp 97.7 F Temp Source Oral Pulse Oximetry (%) 98 Oxygen Delivery Method Room Air Intake Visit Reasons: EP-numbeness on b/l knee, pain in pelvis, ?uti Intake Note: Patient here bladder pressure which started yesterday. Patient Tobacco Use Status: Current everyday Tobacco user Allergies acetaminophen [From Percocet] Allergy (Intermediate, Verified 01/28/24 13:07) Rash monosodium glutamate Allergy (Intermediate, Verified 01/28/24 13:07) ITCHING/HEADACHE oxycodone [From Percocet] Allergy (Intermediate, Verified 01/28/24 13:07) Rash egg Allergy (Verified 01/28/24 13:07) Diarrhea Do you need a note to return to daycare/school/sports/work: No HPI HPI Comments History of Present Illness Details This is a 58-year-old female with a past medical history of oba-ztkaaqg-tboufphvw diabetes, cervical radiculopathy and partial thyroidectomy presenting for evaluation of urinary pressure and perineal discomfort that she has had since yesterday. Patient states she was at work yesterday and upon standing felt a sudden sharp pain ?up the middle? from her perineum that is no longer present. Patient denies any injury or trauma preceding the onset of this symptom. Patient also describes having minimal low back pain with a burning sensation in her posterior thighs. Patient has not taken any medication for treatment of her symptoms and denies having any fevers or chills. [facility] Medical History (Updated 01/28/24 @ 13:42 by Mracia Albert PA-C) Nicotine dependence, cigarettes, uncomplicated Trigger finger of right hand Hand pain, right Osteoarthritis Obesity DM type 2 (diabetes mellitus, type 2) (~2020) Polycythemia Thyroid nodule Cervical spine degeneration Surgical History History of partial thyroidectomy (~2023) History of cataract surgery History of hernia repair (~2001) History of vaginal hysterectomy (~2003) History of cervical discectomy (~2007) History of carpal tunnel release (~2010) History of colonoscopy (~2015) Family History Father Alzheimer's dementia Mother Lung cancer Sister Lung cancer Brother Other Substance use disorder Social History Household Members: Spouse and Family Household Members Other:: RH at [place], Housing: House Are you a primary health care specialist to a significant other at home: No Do you presently have visiting nurse or other home services: No Alcohol intake: current Alcohol intake frequency: holidays/special occasions only Patient Tobacco Use Status: Current everyday Tobacco user Tobacco use type: Cigarette Cigarette Packs Per Day: 0.75 Years Smoked: 39yrs (onset 16, 1/2-1ppd x39yrs, 30PYH) e-Cigarette/Vaping Use: Never Used service: No Current occupational status: employed and unemployed Cognitive needs: No Hearing needs: No Vision needs: Yes Review of Systems Const Reports no additional complaints, Denies chills and Denies fever(s) Eyes Reports no additional complaints ENT Reports no additional complaints Card Reports no additional complaints Resp Reports no additional complaints GI Reports no additional complaints Denies urinary frequency, Denies difficulty voiding, Denies prolapse symptoms and Reports other (urinary pressure without dysuria) Musc Reports back pain, Reports numbness and Reports radiating pain into limb Skin/Breast Reports system reviewed and no additional complaints, except as documented Neuro Reports no additional complaints and Reports numbness Psych Reports no additional complaints Endo Reports no additional complaints Mc/Lymph Reports no additional complaints Aller/Immun Reports no additional complaints Physical Exam Vital Signs: Last Vital Signs Temp 97.7 F 01/28/24 13:01 Pulse 76 01/28/24 13:01 BP 122/76 01/28/24 13:01 Pulse Ox 98 01/28/24 13:01 Oxygen Delivery Method Room Air 01/28/24 13:01 Const General: cooperative, healthy appearing, comfortable, no acute distress, well developed, alert, awake and Physically active; No lethargic Nutritional Appearance: obese Orientation/consciousness: patient oriented x3 and No lethargic Limitations: no limitations Cardio Rate: regular rate Rhythm: regular rhythm GI Palpation (GI): Soft to palpation, nontender and no guarding Auscultation: normal bowel sounds General: Yes Bimanual renal exam normal bilaterally, Yes bladder normal to palpation and Yes no CVA tenderness Bimanual exam- vagina & uterus: bladder normal to palpation Back/Spine/Pelvis Back: no CVA tenderness Thoracic/Lumbar Spine: thoracic and lumbar spine normal to inspection, pain with thoraco-lumbar ROM, paraspinal muscle tenderness bilaterally in the lower lumbar, No thoracic spinal tenderness and No lumbar spinal tenderness Sacroiliac joints: bilaterally tender to palpation (right >> left) Skin General skin exam: no rashes or lesions noted Neuro General: patient oriented x3 Psych Appearance: grossly normal Mental Status: mental status grossly normal Insight: Good insight present (Psych) Judgement: Good judgement present (Psych) Results AMB Urinalysis, Automated 2 UA Leukoctes 0 Rossy/uL Last Edit by Pattie Estrada CCM on 01/28/24 13:29 UA Nitrite Negative Last Edit by Pattie Estrada [facility] on 01/28/24 13:29 UA Urobilinogen 0.2 mg/dL Last Edit by Pattie Estrada [facility] on 01/28/24 13:29 UA Protein 15 mg/dL Last Edit by Pattie Estrada [facility] on 01/28/24 13:29 UA pH 5.5 Last Edit by Pattie Estrada [facility] on 01/28/24 13:29 UA Blood 0 [place]/uL Last Edit by Pattie Estrada [facility] on 01/28/24 13:29 UA Specific [place] 1.025 Last Edit by Pattie Estrada [facility] on 01/28/24 13:29 UA Ketone Negative Last Edit by Pattie Estrada [facility] on 01/28/24 13:29 UA Bilirubin 0 mg/dL Last Edit by Pattie Estrada [facility] on 01/28/24 13:29 UA Glucose 0 mg/dL Last Edit by Pattie Estrada [facility] on 01/28/24 13:29 Assessment & Plan Assessment & Plan (1) Lumbar radiculopathy: Comment: Patient has lumbar tenderness and right sciatic notch tenderness on examination and feels pain in her posterior thighs upon standing. Given her history of cervical disc surgery with neurosurgery, patient is advised to follow-up with her neurosurgeon as an outpatient. Patient denies having any urinary incontinence, stool incontinence, perineal pain or saddle paresthesias at this time. Patient denies any decreased sensation on the plantar surfaces of her feet bilaterally. Code(s): M54.16 - Radiculopathy, lumbar region Plan: Patient's urine is not significant for an acute UTI and patient will follow up with her neurosurgeon as an outpatient. Coding Level of Care Code Est Pt Level 3 (36927) Diagnoses Lumbar radiculopathy M54.16 Time Spent (min) 20
[2024-01-28 13:01] VITALS: BP 122/76; PULSE 76; TEMP 36.5; O2SAT 98
== END 2024-01-28 14:03 | disposition home or self-care (01) ==
PROVIDERS: PCP Internal Medicine; Visit Provider Physician Assistant
DX: Z13.9 Encounter for screening, unspecified (principal); M54.16 Radiculopathy, lumbar region

== ENCOUNTER → 2024-01-28 11:34 | Outpatient (BNVA) | payer OTHER, SELFPAY | PROVIDERS: PCP Internal Medicine; Visit Provider Physician Assistant | DX: M54.16 Radiculopathy, lumbar region (principal); E11.9 Type 2 diabetes mellitus without complications; R10.2 Pelvic and perineal pain | CPT/HCPCS: 81003 ==

== ENCOUNTER 2024-04-27 10:04 | Outpatient (REF) | payer OTHER, SELFPAY ==
[2024-04-27 13:14] LABS: MANUAL DIFF FLAG NO
[2024-04-27 13:33] LABS: Basophils Percent Auto 0.5 % (0-2); Eosinophils Absolute Auto 0.1 X10*3/uL (0.0-0.4); Eosinophils Percent Auto 1.1 % (0-4); Hematocrit 47.7 % (37.0-47.0); Hemoglobin 15.3 g/dl (12.0-16.0); Imm Gran Abs Auto 0.02 X10*3/uL (0.00-0.03); Imm Gran Pct Auto 0.3 % (0.0-0.4); Lymphocytes Absolute Auto 2.6 X10*3/uL (1.2-4.9); Lymphocytes Percent Auto 33.8 % (20-40); Mean Corpuscular HGB Conc 32.1 g/dl (31.0-35.0); Mean Corpuscular Hemoglobin 27.9 pg (27.0-33.0); Mean Platelet Volume 9.1 fL (9.4-12.3); Monocytes Absolute Auto 0.5 X10*3/uL (0.1-1.2); Monocytes Percent Auto 6.1 % (2-11); Neutrophils Absolute Auto 4.4 x10*3/uL (2.0-8.3); Neutrophils Percent Auto 58.2 % (45-73); Platelet Count 307 X10*3/uL (160-400); Red Blood Count 5.48 X10*6/uL (4.20-5.50); Red Cell Distribution Width 12.8 % (11.0-16.0); White Blood Count 7.6 X10*3/uL (4.8-10.8)
[2024-04-27 13:40] LABS: Estimated Average Glucose 114 mg/dL; Hemoglobin A1c % 5.6 % (<6.0)
[2024-04-27 14:08] LABS: Creatinine Urine 12.11 mg/dL; Microalbum/Creatinine Ratio Ur 280.7 ug/mg cr (<30)
[2024-04-27 14:14] LABS: TSH reflex Free T4 1.73 uIU/mL (0.32-4.0)
[2024-04-27 14:15] LABS: Alanine Aminotransferase 17 U/L (0-31); Albumin Level 4.7 g/dL (3.5-5.0); Anion Gap 15 (12-20); Aspartate Amino Transferase 24 U/L (5-31); Bilirubin Total 0.7 mg/dL (0.0-1.0); Blood Urea Nitrogen 15 mg/dL (9-16); Calcium 9.7 mg/dL (8.4-10.2); Carbon Dioxide 26 mmol/L (22-29); Chloride 103 mmol/L (96-108); Cholesterol 194 mg/dL (<200); Estimated Glomerular Filt Rate > 60; Glucose Fasting 99 mg/dL (60-99); HDL Cholesterol 59 mg/dL (>40); LDL Cholesterol Calculated 116 mg/dL (<100); Potassium 4.2 mmol/L (3.3-5.1); Sodium 140 mmol/L (135-145); Total Protein 8.2 g/dL (6.5-8.0); Triglycerides 96 mg/dL (<150)
[2024-04-27 15:34] LABS: Alkaline Phosphatase 86 U/L (39-117)
== END 2024-04-27 10:05 | disposition home or self-care (01) ==
LOC: HO.HMGCLDS 10:04
PROVIDERS: PCP Internal Medicine; Visit Provider Internal Medicine
DX: Z00.00 Encounter for general adult medical examination without abnormal findings (principal); E04.1 Nontoxic single thyroid nodule; E11.9 Type 2 diabetes mellitus without complications
CPT/HCPCS: 36415; 80053; 80061; 82043; 82570; 83036; 84443; 85025

== ENCOUNTER 2024-04-28 08:50 | Outpatient (AMB) | payer OTHER, SELFPAY ==
[2024-04-28 08:56] VITALS: BP 118/68; PULSE 68; RESP 17; O2SAT 95; BMI 36.9
--- NOTE | 2024-04-28 08:56 | A.OFFPC_ITS ---
Vital Signs 04/28/24 08:56 Height 4 ft 10 in Weight 176 lb 6 oz BMI 36.9 BP 118/68 Blood Pressure Location Lt brachial Position Sitting Respiration 17 Pulse 68 Pulse Source Pulse Oximeter Pulse Oximetry (%) 95 Oxygen Delivery Method Room Air Intake Visit Reasons: 6 month follow up Intake Note: Pt is here today for her 6 month follow up. Allergies acetaminophen [From Percocet] Allergy (Intermediate, Verified 04/28/24 08:58) Rash monosodium glutamate Allergy (Intermediate, Verified 04/28/24 08:58) ITCHING/HEADACHE oxycodone [From Percocet] Allergy (Intermediate, Verified 04/28/24 08:58) Rash egg Allergy (Verified 04/28/24 08:58) Diarrhea Medication List - Last Reconciled 04/28/24 by Graciela Mg MD acetaminophen (Tylenol Extra Strength) 1,000 mg (2 x 500 mg) PO QID PRN albuterol sulfate 90 mcg/actuation (ProAir HFA) 2 puffs inhalation Q6H PRN blood sugar diagnostic (C3L3B DigitalTouch Verio test strips) test blood sugars 3 times per day ketoconazole 2% 1 appl topical DAILY lancets test blood sugars 3 times per day metformin 500 mg PO .qd tizanidine (Zanaflex) 4 mg PO TID PRN triamcinolone acetonide 0.025% 1 appl topical BID Tobacco use date assessed: 04/28/24 Dental Screening Dental Screen Date: 04/28/24 Did you have a dental visit in the last 12 months?: Yes Did you have a dental problem in the last 6 months where you did not have access to dental care?: No Was dental information given to patient?: Patient has dentist HPI 6 month follow up HPI Details Patient presents for the follow-up of type 2 diabetes and cervical radiculopathy status post surgery decompression of disc at C5-C6 level by Dr. Harrington. She is feeling better but still complains of neck stiffness and pressure. She will be starting physical therapy. Patient is trying to quit smoking and has been using albuterol p.r.n. for mild COPD PFSH Medical History Nicotine dependence, cigarettes, uncomplicated Trigger finger of right hand Hand pain, right Osteoarthritis Obesity DM type 2 (diabetes mellitus, type 2) (~2020) Polycythemia Thyroid nodule Cervical spine degeneration Surgical History History of partial thyroidectomy (~2023) History of cataract surgery History of hernia repair (~2001) History of vaginal hysterectomy (~2003) History of cervical discectomy (~2007) History of carpal tunnel release (~2010) History of colonoscopy (~2015) Family History Father Alzheimer's dementia Mother Lung cancer Sister Lung cancer Brother Other Substance use disorder Social History Household Members: Spouse and Family Household Members Other:: RH at [place], Housing: House Are you a primary child daycare worker to a significant other at home: No Do you presently have visiting nurse or other home services: No Alcohol intake: current Alcohol intake frequency: holidays/special occasions only Patient Tobacco Use Status: Current everyday Tobacco user Tobacco use type: Cigarette Cigarette Packs Per Day: 0.75 Years Smoked: 39yrs (onset 16, 1/2-1ppd x39yrs, 30PYH) e-Cigarette/Vaping Use: Never Used service: No Current occupational status: employed and unemployed Cognitive needs: No Hearing needs: No Vision needs: Yes Questionnaire PHQ-9 Over the last 2 weeks, how often have you been bothered by any of the following problems? 1. Little interest or pleasure in doing things: not at all 2. Feeling down, depressed, or hopeless: not at all 3. Trouble falling or staying asleep, or sleeping too much: not at all 4. Feeling tired or having little energy: not at all 5. Poor appetite or overeating: not at all 6. Feeling bad about yourself - or that you are a failure or have let yourself or your family down: not at all 7. Trouble concentrating on things, such as reading the newspaper or watching television: not at all 8. Moving or speaking so slowly that other people could have noticed. Or the opp osite - being so fidgety or restless that you have been moving around a lot more than usual: not at all 9. Thoughts that you would be better off or of hurting yourself in some way: not at all Total score: 0 Depression Screening Interpretation: Negative Depression Screening Done: Yes 83884 - PHQ-9 Billing: Yes Source: Developed by Drs. Khang Crain, Trinidad Renae, Ronan Barakat and colleagues, with an educational wilber from [employer]. Thrive Questionnaire Date Thrive assessed: 04/28/24 I am a: Patient What is your living situation today?: I have a steady place to live Within the past 12 months, did the food you bought not last and you didn't have the money to get more?: I choose not to answer this question Within the past 12 months, did you worry whether your food would run out before you got money to buy more?: I choose not to answer this question Do you have trouble paying for medicines?: I choose not to answer this question Do you have trouble getting transportation to medical appointments?: I choose not to answer this question Do you have trouble paying your heating and electricity bill?: I choose not to answer this question Do you have trouble taking care of your child, family member or friend?: I choose not to answer this question Do you have trouble with day-to-day activities such as bathing, preparing meals, shopping, managing finances, etc.?: I choose not to answer this question Are you currently unemployed and looking for a job?: I choose not to answer this question Are you interested in more education?: I choose not to answer this question Please select the resources that you would like help with: None Currently or been in a relationship where the following occur: I choose not to answer THRIVE Score: 0 AUDIT C Alcohol Use Questionnaire (AUDIT-C) 1. How often do you have a drink containing alcohol?: Monthly or less 2. How many drinks containing alcohol do you have on a typical day when you are drinking?: 1 or 2 3. How often do you have six or more drinks on one occasion?: Never Total Score: 1 Score Reviewed/Action Taken: Yes NATE-7 AMB Questionnaire NATE-7 Date NATE - 7 assessed: 04/28/24 Feeling nervous, anxious, or on edge: 0 = Not at all Not being able to stop or control worryin = Not at all Worrying too much about different things: 0 = Not at all Trouble relaxin = Not at all Being so restless that it is hard to sit still: 0 = Not at all Becoming easily annoyed or irritable: 0 = Not at all Feeling afraid as if something awful might happen: 0 = Not at all Total NATE-7 score (0-4 normal; 5-9 mild; 10-14 moderate; 15-21 severe): 0 Source: Developed by Drs. Khang Crain, Trinidad Renae, Ronan Barakat and colleagues, with an educational wilber from [employer]. NATE-7 Assessment Billing NATE-7 Assessment Tool: NATE-7 Assessment 37756 Review of Systems Const All systems reviewed & are unremarkable except as noted in HPI and below ENT Reports no additional complaints Card Reports no additional complaints Resp Reports no additional complaints GI Reports no additional complaints Reports no additional complaints Physical exam (Primary Care) Vital Signs: Last Vital Signs Pulse 68 04/28/24 08:56 Resp 17 04/28/24 08:56 BP 118/68 04/28/24 08:56 Pulse Ox 95 04/28/24 08:56 Oxygen Delivery Method Room Air 04/28/24 08:56 BMI result Body Mass Index 36.9 Tobacco/Smoking Status: Tobacco use Status Tobacco use date assessed 04/28/24 04/28/24 09:01 Patient Tobacco Use Status Current everyday Tobacco 04/28/24 09:01 Tobacco use type Cigarette 04/28/24 09:01 e-Cigarette/Vaping Use Never Used 04/28/24 09:01 PHQ-9: PHQ-9 Score PHQ-9: Total score 0 04/28/24 09:01 Depression Screening Interpretation: Negative Thrive Assessment: Date of Thrive Assessment Date Thrive assessed 04/28/24 04/28/24 09:01 Currently or been in a relationship where the following occur: I choose not to answer Const General: no acute distress HENMT Head: Yes normal to inspection Face and sinus: Yes normal facial exam Neck Neck: Yes supple Resp Effort & Inspection: normal respiratory effort Auscultation: clear to auscultation bilaterally Cardio Rhythm: regular rhythm Heart sounds: S1 normal heart sound present and S2 normal heart sound present GI Inspection: Yes normal to inspection Palpation (GI): Soft to palpation Percussion: Yes normal to percussion Coding Level of Care Code Est Pt Level 4 (75451) Diagnoses Cervical radiculopathy M54.12 DM type 2 (diabetes mellitus, type 2) E11.9 Chronic obstructive pulmonary disease with acute lower respiratory infection J44.0 COPD type: COPD with acute lower respiratory infection Additional Codes NATE-7 Assessment Billing - NATE-7 Assessment Tool: NATE-7 Assessment 08453 ([id number]) PHQ-9 - 39738 - PHQ-9 Billing: Yes ([id number]) Assessment & Plan Assessment & Plan (1) Cervical radiculopathy: Comment: s/p decompression C5-6 02/2024 Dr. Harrington Code(s): M54.12 - Radiculopathy, cervical region Category: Medical Plan: Start physical therapy, restart gabapentin 300 mg twice a day (2) DM type 2 (diabetes mellitus, type 2): Onset Date: ~2020 Code(s): E11.9 - Type 2 diabetes mellitus without complications Category: Medical Plan: A1c is 5.6, continue ADA diet increase physical activity weight loss discussed with the patient. Continue metformin and follow-up in 6 months (3) COPD (chronic obstructive pulmonary disease): Comment: mild Code(s): J44.9 - Chronic obstructive pulmonary disease, unspecified Category: Medical Qualifiers: COPD type: COPD with acute lower respiratory infection Qualified Code(s): J44.0 - Chronic obstructive pulmonary disease with (acute) lower respiratory infection Plan: Tobacco quitting discussed with the patient. Continue albuterol p.r.n. Orders: Orders Complete Blood Count Auto Diff 6 Months E11.9 - Type 2 diabetes mellitus without complications Microalbumin, Random (w Creat) 6 Months E11.9 - Type 2 diabetes mellitus witho ut complications PT Evaluation and Treatment Today M54.12 - Radiculopathy, cervical region Comprehensive [place]. Panel Fast 6 Months E11.9 - Type 2 diabetes mellitus without complications Hemoglobin A1c 6 Months E11.9 - Type 2 diabetes mellitus without complications Lipid Panel 6 Months E11.9 - Type 2 diabetes mellitus without complications Medications: New gabapentin 300 mg PO BID 180 caps 2RF
== END 2024-04-28 12:25 | disposition home or self-care (01) ==
LOC: HO.HMCC 08:51
PROVIDERS: PCP Internal Medicine; Visit Provider Internal Medicine
DX: M54.12 Radiculopathy, cervical region (principal); E11.9 Type 2 diabetes mellitus without complications; J44.0 Chronic obstructive pulmonary disease with (acute) lower respiratory infection

== ENCOUNTER → 2024-04-28 08:50 | Outpatient (BNVA) | payer OTHER, SELFPAY | PROVIDERS: PCP Internal Medicine; Visit Provider Internal Medicine | DX: M54.12 Radiculopathy, cervical region (principal); E11.9 Type 2 diabetes mellitus without complications; J44.0 Chronic obstructive pulmonary disease with (acute) lower respiratory infection; Z79.84 Long term (current) use of oral hypoglycemic drugs | CPT/HCPCS: 96127 ==

== ENCOUNTER 2024-06-12 06:00 | Outpatient (RCR) | payer OTHER, SELFPAY ==
--- NOTE | 2024-05-11 11:03 | MHC.PT.EP ---
[facility] [place] Office [place] Office [place] Office [address] Elise Blanton [address] [phone] F: [phone] F: [phone] F: [phone] F: [phone] Physical Therapy Plan of Care Date of Evaluation: 05/11/24 Date of Surgery: 03/06/24 Diagnosis: This is a 58 yo female presenting to skilled PT with a script for cervical radiculopathy. Assessment: This is a 58 yo female presenting to skilled PT with a script for cervical radiculopathy. Patient reporting cervical surgery 03/06/24 (unsure of what she had done but it involved C5/6). Of note she had cervical surgery 30 years ago (C6/7) and then around 15 years ago (C3,4,5). She also had a recent thyroidectomy 1 year ago. Patient is here reporting she is hurting. Her pain is located from sub occiput down the thoracic spine and across the shoulder blades but most of the time is at the R UT, R scap. Pain is dull, heavy, hard and described as a godawful ache . She has good days and bad days. Pain increases with turning her head B and looking down. She is effected by housework including light laundry, taking food out of the oven, sleeping, driving and mixing/stirring food. She has heat, ice and muscle rubs at home as an adjunct to her medication regiment for pain. She had 2 follow ups with the surgeon and since then has been DC'd from the surgeon's care. This referral is coming from her PCP. Assessment reveals pain that ranges from up to a 9/10 at the worst. Patient demos decreased B shoulder and cervical ROM, strength of B shoulder's and scapular stabilizers, TTP at UT, incision and cervical surrounding soft tissues and impaired posture with forward head and rounded shoulders. Based on functional limitations, impaired QOL and pain tolerance patient is a good candidate for skilled PT 2x/wk for 4wks. Frequency and Duration: The patient will be seen 2x/wk for 4wks Short Term Goals: (in 2 wks) I in HEP Improve cervical ROM by at least 5 degs in all directions Demo proper cervical positioning with progression of UB strengthening exercises without cues from PT Sole Layer Goals: (in 4 wks) Report 50% improvement in QOL Tolerate sleeping through the 75% night without waking from pain Improve NDI by 10 points Improve pain to no more than 2/10 at the worst Patient will tolerate driving for 30 mins without increase in pain Patient will tolerate full duty work without increase in pain Treatment Plan: Modalities to reduce pain, spasms and effusion. Manual therapy to restore motion and function. Therapeutic exercise to improve strength and flexibility. Neuromuscular re-education for posture and balance. Therapeutic activities to return to functional activities of daily living. Electronically signed by: Shannon Max PT Please sign and return to therapist. Thank you for your referral.
--- NOTE | 2024-07-14 12:38 | MHC.PT.DC ---
[facility] [place] Office [place] Office [place] Office [address] Bl[address] [phone] F: [phone] F: [phone] F: [phone] F: [phone] Physical Therapy Discharge Report Diagnosis: This is a 58 yo female presenting to skilled PT with a script for cervical radiculopathy. Date of Surgery: 03/06/24 Date of Evaluation: 05/11/24 Date of Discharge: 07/14/24 Treatments to Date: 8 Cancellations to Date: 0 No Shows to Date: 0 Discharge Status: Independent with HEP Patient Elected to Stop Discharge Summary: 06/12: Patient saw the surgeon and was weaned down to 4 hrs a day at work moving forward. She had an x-ray but no results yet. She will be placed on a PT hold per the patient for now and may return in the future. I educated her on the 30 day hold. NDI was 24, pain ranges 4-9/10, cervical flexion AROM 14, extension 37, 18 lateral flexion R, 12 lateral flexion L, 32 rotation L and 23 rotation R. Shoulder ROM is grossly intact without pain but demos end range limitations from general stiffness with abduction and flexion. Patient educated on HEP for now. Electronically signed by: Shannon Max PT Please sign and return to therapist. Thank you for your referral.
== END 2024-07-14 12:39 | disposition home or self-care (01) ==
LOC: HO.PTCHIC 06:00
PROVIDERS: PCP Internal Medicine; Visit Provider Internal Medicine
DX: M54.12 Radiculopathy, cervical region (principal)
CPT/HCPCS: 97110; 97140; 97162

== ENCOUNTER 2024-07-14 07:42 | Outpatient (REF) | payer OTHER, SELFPAY | END 2024-07-14 07:43 | disposition home or self-care (01) | LOC: HO.MAMMO 07:42 | PROVIDERS: PCP Internal Medicine; Visit Provider Internal Medicine | DX: Z12.31 Encounter for screening mammogram for malignant neoplasm of breast (principal) | CPT/HCPCS: 77063; 77067 ==

== ENCOUNTER → 2024-07-14 08:00 | Outpatient (BNV) | payer OTHER, SELFPAY | PROVIDERS: PCP Internal Medicine; Visit Provider Internal Medicine | DX: Z12.31 Encounter for screening mammogram for malignant neoplasm of breast (principal) | CPT/HCPCS: 77063; 77067 ==

== ENCOUNTER 2024-09-04 11:49 | Outpatient (AMB) | payer OTHER, SELFPAY ==
--- NOTE | 2024-09-04 12:01 | A.OFFPC_ITS ---
Vital Signs 09/04/24 12:03 Height 4 ft 10 in Weight 180 lb BMI 37.6 BP 126/66 Blood Pressure Location Rt brachial Position Sitting Respiration 18 Pulse 85 Pulse Source Pulse Oximeter Temp 98.5 F Temp Source Oral Pulse Oximetry (%) 96 Oxygen Delivery Method Room Air Intake Visit Reasons: Pain on neck & back Intake Note: Pt is here today for a sick visit. Pt c/o neck and back pain. Allergies acetaminophen (From Percocet) Allergy (Intermediate, Verified 09/04/24 12:05) Rash monosodium glutamate Allergy (Intermediate, Verified 09/04/24 12:05) ITCHING/HEADACHE oxycodone (From Percocet) Allergy (Intermediate, Verified 09/04/24 12:05) Rash egg Allergy (Verified 09/04/24 12:05) Diarrhea Medication List - Last Reconciled 09/04/24 by Graciela Mg MD acetaminophen (Tylenol Extra Strength) 1,000 mg (2 x 500 mg) PO QID PRN albuterol sulfate 90 mcg/actuation (ProAir HFA) 2 puffs inhalation Q6H PRN blood sugar diagnostic (OneTouch Verio test strips) test blood sugars 3 times per day gabapentin 300 mg PO BID gabapentin 300 mg PO BEDTIME ketoconazole 2% 1 appl topical DAILY lancets test blood sugars 3 times per day lidocaine 5% 2 patches topical DAILY metformin 500 mg PO .qd prednisone 10 mg PO DAILY tizanidine (Zanaflex) 4 mg PO DAILY PRN triamcinolone acetonide 0.025% 1 appl topical BID Tobacco use date assessed: 09/04/24 Dental Screening Dental Screen Date: 04/28/24 HPI Pain on neck & back HPI Details Pt c/o worsening neck and lower back pain radiating to right lower leg for the last few weeks. Patient had a cervical spine surgery in April with initial improvement of her chronic neck pain which lasted for 2 months. Patient reports pain worse when driving in her car reaching overhead, she denies any change in the strength of her upper and lower extremities change in bowel bladder function. She has an follow-up appointment with neurosurgeon in 2 weeks. Patient has been feeling upset and angry that she is not able to perform her job related and household activities that she used to be able to do. [facility] Medical History (Updated 09/04/24 @ 13:03 by Graciela Mg MD) Nicotine dependence, cigarettes, uncomplicated Trigger finger of right hand Hand pain, right Osteoarthritis Obesity DM type 2 (diabetes mellitus, type 2) (~2020) Polycythemia Thyroid nodule Surgical History History of partial thyroidectomy (~2023) History of cataract surgery History of hernia repair (~2001) History of vaginal hysterectomy (~2003) History of cervical discectomy (~2007) History of carpal tunnel release (~2010) History of colonoscopy (~2015) Family History Father Alzheimer's dementia Mother Lung cancer Sister Lung cancer Brother Other Substance use disorder Social History (Reviewed 09/04/24 @ 12:08 by Kristin Wilhelm [facility]) Household Members: Spouse and Family Household Members Other:: RH at [place], Housing: House Are you a primary care process manager to a significant other at home: No Do you presently have visiting nurse or other home services: No Alcohol intake: current Alcohol intake frequency: holidays/special occasions only Patient Tobacco Use Status: Current everyday Tobacco user Tobacco use type: Cigarette Cigarette Packs Per Day: 0.75 Years Smoked: 39yrs (onset 16, 1/2-1ppd x39yrs, 30PYH) e-Cigarette/Vaping Use: Never Used service: No Current occupational status: unemployed Cognitive needs: No Hearing needs: No Vision needs: Yes Questionnaire Thrive Questionnaire Date Thrive assessed: 04/28/24 NATE-7 AMB Questionnaire NATE-7 Date NATE - 7 assessed: 04/28/24 Source: Developed by Drs. Khang Crain, Trinidad Renae, Ronan Barakat and colleagues, with an educational wilber from [employer]. Review of Systems Const All systems reviewed & are unremarkable except as noted in HPI and below ENT Reports no additional complaints Card Reports no additional complaints Resp Reports no additional complaints GI Reports no additional complaints Reports no additional complaints Physical exam (Primary Care) Vital Signs: Last Vital Signs Temp 98.5 F 09/04/24 12:03 Pulse 85 09/04/24 12:03 Resp 18 09/04/24 12:03 BP 126/66 09/04/24 12:03 Pulse Ox 96 09/04/24 12:03 Oxygen Delivery Method Room Air 09/04/24 12:03 BMI result Body Mass Index 37.6 Tobacco/Smoking Status: Tobacco use Status Tobacco use date assessed 09/04/24 09/04/24 12:08 Patient Tobacco Use Status Current everyday Tobacco 09/04/24 12:08 Tobacco use type Cigarette 09/04/24 12:08 e-Cigarette/Vaping Use Never Used 09/04/24 12:08 Thrive Assessment: Date of Thrive Assessment Date Thrive assessed 04/28/24 09/04/24 12:08 Const General: no acute distress HENMT Face and sinus: Yes normal facial exam Resp Effort & Inspection: normal respiratory effort Auscultation: clear to auscultation bilaterally Cardio Rhythm: regular rhythm Heart sounds: S1 normal heart sound present and S2 normal heart sound present Back/Spine/Pelvis Other: There is a decreased central motion and paraspinal tenderness lower cervical and lumbar region. Straight leg rising 40 degrees on the right 90 degrees on the left, motor strength 5/5 bilaterally Coding Level of Care Code Est Pt Level 4 (67303) Complex EM visit Add On G2211 Diagnoses Sciatica M54.30 Cervical radiculopathy M54.12 Chronic obstructive pulmonary disease with acute lower respiratory infection J44.0 COPD type: COPD with acute lower respiratory infection Assessment & Plan Assessment & Plan (1) Sciatica: Code(s): M54.30 - Sciatica, unspecified side Category: Medical Plan: For recurrent sciatica prednisone taper is prescribed patient will be referred to physical therapy (2) Cervical radiculopathy: Comment: s/p decompression C5-6 02/2024 Dr. Harrington Code(s): M54.12 - Radiculopathy, cervical region Category: Medical Plan: For worsening neck pain gabapentin will be increased to 300 mg in morning and 600 mg at night. Patient will follow-up with neurosurgeon. She declined physical therapy or referral to pain management. Patient is looking into the acupuncture. Stress and anger management discussed with the patient she was advised to start counseling. Out of work note until September 21 (3) COPD (chronic obstructive pulmonary disease): Comment: mild Code(s): J44.9 - Chronic obstructive pulmonary disease, unspecified Category: Medical Qualifiers: COPD type: COPD with acute lower respiratory infection Qualified Code(s): J44.0 - Chronic obstructive pulmonary disease with (acute) lower respiratory infection Plan: Tobacco quitting discussed with the patient continue albuterol prn Orders: Orders PT Evaluation and Treatment Today M54.30 - Sciatica, unspecified side Medications: New gabapentin 1 tabl qAM 2 tabl qHS 300 mg PO BID 180 caps 2RF prednisone 4 tabl qd for 3 days, then 3 tabl qd x 3 days, then 2 tabl qd x 3 days, then 1 qd 10 mg PO DAILY 30 tabs 0RF lidocaine 5% leave on most painful area for up to 12 hrs 2 patches topical DAILY 60 ea 2RF Changed From gabapentin 300 mg PO BID 180 caps 3RF To gabapentin 300 mg PO BEDTIME
[2024-09-04 12:03] VITALS: BP 126/66; PULSE 85; RESP 18; TEMP 36.9; O2SAT 96; BMI 37.6
--- OUTSIDE RECORDS SUMMARY | 2024-09-04 12:05 | XMS_ITS | Patient Health Record ---
Author Organization [facility] Address [address] [place] [address] Care Team Providers Care Behavioral Health Associate Name Role Phone Marcia(inactive) Teofilo LARSEN Primary Care Provider U presley Osborn Jr Cullen Unavailable Reason For Referral No Information Medications Medication SIG (Take, Route, Frequency, Duration) Notes Start Date End Date Status Colyte with Flavor Packs 240 GM As directed Orally Over the specified time. for 1 day(s) 04/13/2015 Active Problems Problem Type SNOMED Code ICD Code Onset Dates Problem Status W/U Status Risk Notes Problem [id number] Rectal bleeding (K62.5) Active confirmed Problem [id number] Colitis (K52.9) Active confirmed Plan Of Treatment Future Test Test Name Order Date COLONOSCOPY 04/13/2015 Insurance Providers Payer Name Payer Address Payer Phone Subscriber Number Group Number Insured Name Patient Relationship to Insured Coverage Start Date Coverage End Date [facility] [address] [place], [place] [id number] [phone] [id number] TRINY BULL Self - patient is the insured Medical (General) History Medical History History ICD Code Denies MD,DM,CVA,Lung disease,renal dise ase Surgical History Surgery Date(Month/Year) disc surgery 1993,2007 hysterectomy 2004 carpal tunnel release 2009,2009 tubal ligation section
== END 2024-09-04 12:55 | disposition home or self-care (01) ==
LOC: HO.HMCC 11:49
PROVIDERS: PCP Internal Medicine; Visit Provider Internal Medicine
DX: M54.30 Sciatica, unspecified side (principal); M54.12 Radiculopathy, cervical region; J44.0 Chronic obstructive pulmonary disease with (acute) lower respiratory infection

== ENCOUNTER 2024-10-14 11:35 | Outpatient (AMB) | payer OTHER, SELFPAY ==
--- NOTE | 2024-10-14 11:43 | MHC.PC.OV ---
Vital Signs 10/14/24 11:54 Height 4 ft 10 in Weight 180 lb BMI 37.6 BP 118/66 Blood Pressure Location Lt brachial Position Sitting Respiration 20 Pulse 74 Pulse Source Pulse Oximeter Pulse Oximetry (%) 94 Oxygen Delivery Method Room Air Intake Visit Reasons: 1 month f/up Allergies acetaminophen (From Percocet) Allergy (Intermediate, Verified 10/14/24 11:56) Rash monosodium glutamate Allergy (Intermediate, Verified 10/14/24 11:56) ITCHING/HEADACHE oxycodone (From Percocet) Allergy (Intermediate, Verified 10/14/24 11:56) Rash egg Allergy (Verified 10/14/24 11:56) Diarrhea Medication List - Last Reconciled 10/14/24 by Graciela Mg MD acetaminophen (Tylenol Extra Strength) 1,000 mg (2 x 500 mg) PO QID PRN albuterol sulfate 90 mcg/actuation (ProAir HFA) 2 puffs inhalation Q6H PRN blood sugar diagnostic ([employer] Verio test strips) test blood sugars 3 times per day gabapentin One tablet in the morning and 2 tablets at night orally 2 times a day; 1 tabl qAM 2 tabl qHS ketoconazole 2% 1 appl topical DAILY lancets test blood sugars 3 times per day lidocaine 5% 2 patches topical DAILY metformin 500 mg PO .qd tizanidine (Zanaflex) 4 mg PO DAILY PRN triamcinolone acetonide 0.025% 1 appl topical BID Tobacco use date assessed: 10/14/24 Dental Screening Dental Screen Date: 04/28/24 HPI 1 month f/up HPI Details Patient presents for the follow-up of chronic neck and shoulders pain due to cervical radiculopathy. She has been taking gabapentin 600 mg at night and started working 4 hours a day 4 days a week. She has been taking Tylenol as needed but would like to try different medication Theresa no has not been controlling her pain. Type 2 diabetes is controlled on metformin [facility] Medical History Nicotine dependence, cigarettes, uncomplicated Trigger finger of right hand Hand pain, right Osteoarthritis Obesity DM type 2 (diabetes mellitus, type 2) (~2020) Polycythemia Thyroid nodule Surgical History History of partial thyroidectomy (~2023) History of cataract surgery History of hernia repair (~2001) History of vaginal hysterectomy (~2003) History of cervical discectomy (~2007) History of carpal tunnel release (~2010) History of colonoscopy (~2015) Family History Father Alzheimer's dementia Mother Lung cancer Sister Lung cancer Brother Other Substance use disorder Social History Household Members: Spouse and Family Household Members Other:: RH at [place], Housing: House Are you a primary healthcare marketer to a significant other at home: No Do you presently have visiting nurse or other home services: No Alcohol intake: current Alcohol intake frequency: holidays/special occasions only Patient Tobacco Use Status: Current everyday Tobacco user Tobacco use type: Cigarette Cigarette Packs Per Day: 0.75 Years Smoked: 39yrs (onset 16, 1/2-1ppd x39yrs, 30PYH) Packs Per Year: 0 e-Cigarette/Vaping Use: Never Used service: No Current occupational status: unemployed Cognitive needs: No Hearing needs: No Vision needs: Yes Questionnaire PHQ-9 Over the last 2 weeks, how often have you been bothered by any of the following problems? 1. Little interest or pleasure in doing things: more than half the days 2. Feeling down, depressed, or hopeless: more than half the days 3. Trouble falling or staying asleep, or sleeping too much: nearly every day 4. Feeling tired or having little energy: more than half the days 5. Poor appetite or overeating: more than half the days 6. Feeling bad about yourself - or that you are a failure or have let yourself or your family down: more than half the days 7. Trouble concentrating on things, such as reading the newspaper or watching television: more than half the days 8. Moving or speaking so slowly that other people could have noticed. Or the opposite - being so fidgety or restless that you have been moving around a lot more than usual: more than half the days 9. Thoughts that you would be better off or of hurting yourself in some way: not at all Total score: 17 Depression Screening Interpretation: Positive (Counseling and medication recommended but patient declined) Depression Screening Follow-up: Existing condition Depression Screening Done: Yes 65928 - PHQ-9 Billing: Yes Source: Developed by Drs. Khang Crain, Trinidad Renae, Ronan Barakat and colleagues, with an educational wilber from [employer]. Thrive Questionnaire Date Thrive assessed: 10/14/24 What is your living situation today?: I have a steady place to live Within the past 12 months, did the food you bought not last and you didn't have the money to get more?: Never true Within the past 12 months, did you worry whether your food would run out before you got money to buy more?: Never true Do you have trouble paying for medicines?: No Do you have trouble getting transportation to medical appointments?: No Do you have trouble paying your heating and electricity bill?: No Do you have trouble taking care of your child, family member or friend?: No Do you have trouble with day-to-day activities such as bathing, preparing meals, shopping, managing finances, etc.?: Yes Are you currently unemployed and looking for a job?: No Are you interested in more education?: No Please select the resources that you would like help with: None Currently or been in a relationship where the following occur: I choose not to answer THRIVE Score: 0 AUDIT C Alcohol Use Questionnaire (AUDIT-C) 1. How often do you have a drink containing alcohol?: Monthly or less 2. How many drinks containing alcohol do you have on a typical day when you are drinking?: 1 or 2 3. How often do you have six or more drinks on one occasion?: Never Total Score: 1 NATE-7 AMB Questionnaire NATE-7 Date NATE - 7 assessed: 10/14/24 Feeling nervous, anxious, or on edge: 1 = Several days Not being able to stop or control worryin = Several days Worrying too much about different things: 1 = Several days Trouble relaxin = Several days Being so restless that it is hard to sit still: 1 = Several days Becoming easily annoyed or irritable: 1 = Several days Feeling afraid as if something awful might happen: 1 = Several days Total NATE-7 score (0-4 normal; 5-9 mild; 10-14 moderate; 15-21 severe): 7 Source: Developed by Drs. Khang Crain, Trinidad Renae, Ronan Barakat and colleagues, with an educational wilber from [employer]. NATE-7 Assessment Billing NATE-7 Assessment Tool: NATE-7 Assessment 29439 Review of Systems Const All systems reviewed & are unremarkable except as noted in HPI and below Eyes Reports no additional complaints ENT Reports no additional complaints Card Reports no additional complaints Resp Reports no additional complaints GI Reports no additional complaints Reports no additional complaints Physical exam (Primary Care) Vital Signs: Last Vital Signs Pulse 74 10/14/24 11:54 Resp 20 10/14/24 11:54 BP 118/66 10/14/24 11:54 Pulse Ox 94 10/14/24 11:54 Oxygen Delivery Method Room Air 10/14/24 11:54 BMI result Body Mass Index 37.6 Tobacco/Smoking Status: Tobacco use Status Tobacco use date assessed 10/14/24 10/14/24 11:59 Patient Tobacco Use Status Current everyday Tobacco 10/14/24 11:43 Tobacco use type Cigarette 10/14/24 11:43 e-Cigarette/Vaping Use Never Used 10/14/24 11:43 PHQ-9: PHQ-9 Score PHQ-9: Total score 17 10/14/24 11:59 Depression Screening Interpretation: Positive (Counseling and medication recommended but patient declined) Depression Screening Follow-up: Existing condition Thrive Assessment: Date of Thrive Assessment Date Thrive assessed 10/14/24 10/14/24 11:59 Currently or been in a relationship where the following occur: I choose not to answer Const General: no acute distress HENMT Head: Yes normal to inspection Mouth: Normal oral and palatal mucosa present Neck Neck: Yes supple Resp Effort & Inspection: normal respiratory effort Auscultation: clear to auscultation bilaterally Cardio Rhythm: regular rhythm Heart sounds: S1 normal heart sound present and S2 normal heart sound present GI Inspection: Yes normal to inspection Palpation (GI): Soft to palpation Percussion: Yes normal to percussion Auscultation: normal bowel sounds Coding Level of Care Code Est Pt Level 4 (34579) Diagnoses DM type 2 (diabetes mellitus, type 2) E11.9 Cervical vertebral fusion M43.22 Chronic obstructive pulmonary disease with acute lower respiratory infection J44.0 COPD type: COPD with acute lower respiratory infection Additional Codes NATE-7 Assessment Billing - NATE-7 Assessment Tool: NATE-7 Assessment 56196 ([id number]) PHQ-9 - 66848 - PHQ-9 Billing: Yes ([id number]) Assessment & Plan Assessment & Plan (1) DM type 2 (diabetes mellitus, type 2): Onset Date: ~2020 Code(s): E11.9 - Type 2 diabetes mellitus without complications Category: Medical Plan: Continue metformin ADA diet return for blood work (2) Cervical vertebral fusion: Comment: C3-4 -5 osseous bridging , C6-7 mod deg disc bulge, L paracental protrusion >20 yrs, Code(s): M43.22 - Fusion of spine, cervical region Category: Medical Plan: Add gabapentin 200 mg in the morning and lunchtime as needed and continue 600 mg of gabapentin at night. Patient will take Advil as needed (3) COPD (chronic obstructive pulmonary disease): Comment: mild Code(s): J44.9 - Chronic obstructive pulmonary disease, unspecified Category: Medical Qualifiers: COPD type: COPD with acute lower respiratory infection Qualified Code(s): J44.0 - Chronic obstructive pulmonary disease with (acute) lower respiratory infection Plan: Tobacco quitting discussed with the patient Medications: New gabapentin take 2 caps in AM and lunch 200 mg (2 x 100 mg) PO BID 120 caps 1RF Changed From gabapentin One tablet in the morning and 2 tablets at night orally 2 times a day; 1 tabl qAM 2 tabl qHS 180 caps 2RF To gabapentin 2 tablets at night orally bedtime; 180 caps 2RF
[2024-10-14 11:54] VITALS: BP 118/66; PULSE 74; RESP 20; O2SAT 94; BMI 37.6
--- OUTSIDE RECORDS SUMMARY | 2024-10-14 12:36 | XMS_ITS | Patient Health Record ---
Author Organization [facility] Address [address] [place] [address] Care Team Providers Care Diving Fisher Name Role Phone Marcia(inactive) Teofilo LARSEN Primary Care Provider U nohemyfranklinlio Osborn Jr Cullen Unavailable Reason For Referral No Information Medications Medication SIG (Take, Route, Frequency, Duration) Notes Start Date End Date Status Colyte with Flavor Packs 240 GM As directed Orally Over the specified time. for 1 day(s) 04/13/2015 Active Problems Problem Type SNOMED Code ICD Code Onset Dates Problem Status W/U Status Risk Notes Problem [id number] Rectal bleeding (K62.5) Active confirmed Problem 296473772 Colitis (K52.9) Active confirmed Plan Of Treatment Future Test Test Name Order Date COLONOSCOPY 04/13/2015 Insurance Providers Payer Name Payer Address Payer Phone Subscriber Number Group Number Insured Name Patient Relationship to Insured Coverage Start Date Coverage End Date [facility] [address] [place], [place] [id number] TRINY BULL Self - patient is the insured Medical (General) History Medical History History ICD Code Denies [place],DM,CVA,Lung disease,renal dise ase Surgical History Surgery Date(Month/Year) disc surgery 1993,2007 hysterectomy 2004 carpal tunnel release 2009,2009 tubal ligation section
== END 2024-10-14 16:36 | disposition home or self-care (01) ==
LOC: HO.HMCC 11:36
PROVIDERS: PCP Internal Medicine; Visit Provider Internal Medicine
DX: E11.9 Type 2 diabetes mellitus without complications (principal); M43.22 Fusion of spine, cervical region; J44.0 Chronic obstructive pulmonary disease with (acute) lower respiratory infection

== ENCOUNTER → 2024-10-14 11:35 | Outpatient (BNVA) | payer OTHER, SELFPAY | PROVIDERS: PCP Internal Medicine; Visit Provider Internal Medicine | DX: M25.511 Pain in right shoulder (principal); M25.512 Pain in left shoulder; M54.12 Radiculopathy, cervical region; E11.9 Type 2 diabetes mellitus without complications; M43.22 Fusion of spine, cervical region; J44.0 Chronic obstructive pulmonary disease with (acute) lower respiratory infection; Z79.84 Long term (current) use of oral hypoglycemic drugs | CPT/HCPCS: 96127 ==

== ENCOUNTER 2024-11-11 09:43 | Outpatient (REF) | payer OTHER, SELFPAY ==
--- OUTSIDE RECORDS SUMMARY | 2024-11-11 11:48 | XMS_ITS | Patient Health Record ---
Author Organization [facility] Address [address] [place] [address] Care Team Providers Care Supervisor Print Line Name Role Phone Marcia(inactive) Teofilo LARSEN Primary [...] Problem Status W/U Status Risk Notes Problem 45292841 Rectal bleeding (K62.5) Active confirmed Problem 469921377 Colitis (K52.9) Active confirmed Plan Of Treatment Future Test Test Name Order Date COLONOSCOPY 04/13/2015 Insurance Providers Payer Name Payer Address Payer Phone Subscriber Number Group Number Insured Name Patient Relationship to Insured Coverage Start Date Coverage End Date [facility] [address] [place], [place] [id number] TRINY BULL Self - patient is the insured Medical (General) History Medical History History ICD Code Denies [place],DM,CVA,Lung disease,renal dise ase Surgical History Surgery Date(Month/Year) disc surgery 1993,2007 hysterectomy 2004 carpal tunnel release 2009,2009 tubal ligation section
[2024-11-11 14:00] LABS: MANUAL DIFF FLAG NO
[2024-11-11 14:05] LABS: Hematocrit 48.8 % (37.0-47.0); Hemoglobin 15.8 g/dl (12.0-16.0); Imm Gran Abs Auto 0.01 X10*3/uL (0.00-0.03); Imm Gran Pct Auto 0.1 % (0.0-0.4); Lymphocytes Absolute Auto 2.3 X10*3/uL (1.2-4.9); Mean Corpuscular HGB Conc 32.4 g/dl (31.0-35.0); Mean Corpuscular Hemoglobin 28.5 pg (27.0-33.0); Mean Corpuscular Volume 87.9 fL (80.0-98.0); NRBC Abs Auto 0.000 X10*3/uL (0.0-0.012); NRBC Pct Auto 0.0 /100WBC (0.0-0.2); Platelet Count 273 X10*3/uL (160-400); Red Blood Count 5.55 X10*6/uL (4.20-5.50); White Blood Count 7.0 X10*3/uL (4.8-10.8)
[2024-11-11 14:13] LABS: Microalbum/Creatinine Ratio Ur 132.1 ug/mg cr (<30)
[2024-11-11 14:19] LABS: Alanine Aminotransferase 18 U/L (0-31); Albumin Level 4.9 g/dL (3.5-5.0); Alkaline Phosphatase 87 U/L (39-117); Anion Gap 12 (12-20); Aspartate Amino Transferase 24 U/L (5-31); Blood Urea Nitrogen 15 mg/dL (9-16); Calcium 9.6 mg/dL (8.4-10.2); Carbon Dioxide 28 mmol/L (22-29); Chloride 106 mmol/L (96-108); Cholesterol 188 mg/dL (<200); Estimated Glomerular Filt Rate > 60; HDL Cholesterol 51 mg/dL (>40); Potassium 4.2 mmol/L (3.3-5.1); Sodium 142 mmol/L (135-145); Total Protein 7.5 g/dL (6.5-8.0); Triglycerides 109 mg/dL (<150)
[2024-11-11 14:58] LABS: Hemoglobin A1C 213.0634 umol/L; Total Hemoglobin (HGBA1C) 5253.8788 umol/L
== END 2024-11-11 09:44 | disposition home or self-care (01) ==
LOC: HO.HMGCLDS 09:43
PROVIDERS: PCP Internal Medicine; Visit Provider Internal Medicine
DX: E11.9 Type 2 diabetes mellitus without complications (principal)
CPT/HCPCS: 36415; 80053; 80061; 82043; 82570; 83036; 85025

== ENCOUNTER 2024-11-17 07:43 | Outpatient (AMB) | payer OTHER, SELFPAY ==
--- OUTSIDE RECORDS SUMMARY | 2024-11-17 07:53 | XMS_ITS | Patient Health Record ---
Author Organization [facility] Address [address] [place] [address] Care Team Providers Care Plsql Developer Name Role Phone Marcia(inactive) Teofilo LARSEN Primary Care Provider U presley Osborn Jr Cullen Unavailable [phone] Reason For Referral No Information Medications Medication SIG (Take, Route, Frequency, Duration) Notes Start Date End Date Status Colyte with Flavor Packs 240 GM As directed Orally Over the specified time. for 1 day(s) 04/13/2015 Active Problems Problem Type SNOMED Code ICD Code Onset Dates Problem Status W/U Status Risk Notes Problem 30393002 Rectal bleeding (K62.5) Active confirmed Problem 824207858 Colitis (K52.9) Active confirmed Plan Of Treatment Future Test Test Name Order Date COLONOSCOPY 04/13/2015 Insurance Providers Payer Name Payer Address Payer Phone Subscriber Number Group Number Insured Name Patient Relationship to Insured Coverage Start Date Coverage End Date [facility] [address] [place], [place] [id number] [phone] [id number] TRINY BULL Self - patient is the insured Medical (General) History Medical History History ICD Code Denies [place],DM,CVA,Lung disease,renal dise ase Surgical History Surgery Date(Month/Year) disc surgery 1993,2007 hysterectomy 2004 carpal tunnel release 2009,2009 tubal ligation section
[2024-11-17 08:07] VITALS: BP 118/64; PULSE 72; RESP 18; TEMP 36.9; O2SAT 96; BMI 37.8
--- NOTE | 2024-11-17 08:07 | MHC.PC.OV ---
Vital Signs 11/17/24 08:07 Height 4 ft 10 in Weight 181 lb BMI 37.8 BP 118/64 Blood Pressure Location Rt brachial Position Sitting Respiration 18 Pulse 72 Pulse Source Pulse Oximeter Temp 98.5 F Temp Source Oral Pulse Oximetry (%) 96 Oxygen Delivery Method Room Air Intake Visit Reasons: PE Intake Note: Pt is here today for PE. Allergies acetaminophen (From Percocet) Allergy (Intermediate, Verified 11/17/24 08:08) Rash monosodium glutamate Allergy (Intermediate, Verified 11/17/24 08:08) ITCHING/HEADACHE oxycodone (From Percocet) Allergy (Intermediate, Verified 11/17/24 08:08) Rash egg Allergy (Verified 11/17/24 08:08) Diarrhea Medication List - Last Reconciled 11/17/24 by Graciela Mg MD acetaminophen (Tylenol Extra Strength) 1,000 mg (2 x 500 mg) PO QID PRN albuterol sulfate 90 mcg/actuation (ProAir HFA) 2 puffs inhalation Q6H PRN blood sugar diagnostic ([employer] test strips) test blood sugars 3 times per day gabapentin 200 mg (2 x 100 mg) PO BID gabapentin 2 tablets at night orally bedtime; ketoconazole 2% 1 appl topical DAILY lancets test blood sugars 3 times per day lidocaine 5% 2 patches topical DAILY metformin 500 mg PO .qd tizanidine (Zanaflex) 4 mg PO DAILY PRN triamcinolone acetonide 0.025% 1 appl topical BID Tobacco use date assessed: 11/17/24 Dental Screening Dental Screen Date: 04/28/24 HPI PE HPI Details Pt presents for PE. Pt c/o chronic neck pain and stiffness worse when under a stress related to her job. She was evaluated by neurosurgeon and no surgical intervention was recommended. Patient try cortisone injections which were not helpful and she is not interested in seeing pain management. Patient is looking to get established with a counselor. She reports depression but denies suicide ideation , change in the sleep pattern or appetite [facility] Medical History (Updated 11/17/24 @ 10:03 by Graciela Mg MD) Annual physical exam COPD (chronic obstructive pulmonary disease) Cervical vertebral fusion Nicotine dependence, cigarettes, uncomplicated Trigger finger of right hand Hand pain, right Osteoarthritis Obesity DM type 2 (diabetes mellitus, type 2) (~2020) Polycythemia Thyroid nodule Surgical History History of partial thyroidectomy (~2023) History of cataract surgery History of hernia repair (~2001) History of vaginal hysterectomy (~2003) History of cervical discectomy (~2007) History of carpal tunnel release (~2010) History of colonoscopy (~2015) Family History Father Alzheimer's dementia Mother Lung cancer Sister Lung cancer Brother Other Substance use disorder Social History Household Members: Spouse and Family Household Members Other:: RH at [place], Housing: House Are you a primary customer care agent to a significant other at home: No Do you presently have visiting nurse or other home services: No Alcohol intake: current Alcohol intake frequency: holidays/special occasions only Patient Tobacco Use Status: Current everyday Tobacco user Tobacco use type: Cigarette Cigarette Packs Per Day: 0.75 Years Smoked: 39yrs (onset 16, 1/2-1ppd x39yrs, 30PYH) e-Cigarette/Vaping Use: Never Used service: No Current occupational status: unemployed Cognitive needs: No Hearing needs: No Vision needs: Yes Questionnaire PHQ-9 Over the last 2 weeks, how often have you been bothered by any of the following problems? 1. Little interest or pleasure in doing things: more than half the days 2. Feeling down, depressed, or hopeless: more than half the days 3. Trouble falling or staying asleep, or sleeping too much: nearly every day 4. Feeling tired or having little energy: more than half the days 5. Poor appetite or overeating: more than half the days 6. Feeling bad about yourself - or that you are a failure or have let yourself or your family down: more than half the days 7. Trouble concentrating on things, such as reading the newspaper or watching television: more than half the days 8. Moving or speaking so slowly that other people could have noticed. Or the opposite - being so fidgety or restless that you have been moving around a lot more than usual: more than half the days 9. Thoughts that you would be better off or of hurting yourself in some way: not at all Total score: 17 Depression Screening Interpretation: Positive (Counseling and medication recommended but patient declined) Depression Screening Follow-up: Existing condition Depression Screening Done: Yes Source: Developed by Drs. Khang Crain, Ronan Messer and colleagues, with an educational wilber from [employer]. Thrive Questionnaire Date Thrive assessed: 10/14/24 I am a: Patient What is your living situation today?: I have a steady place to live Within the past 12 months, did the food you bought not last and you didn't have the money to get more?: Never true Within the past 12 months, did you worry whether your food would run out before you got money to buy more?: Never true Do you have trouble paying for medicines?: No Do you have trouble getting transportation to medical appointments?: No Do you have trouble paying your heating and electricity bill?: No Do you have trouble taking care of your child, family member or friend?: No Do you have trouble with day-to-day activities such as bathing, preparing meals, shopping, managing finances, etc.?: Yes Are you currently unemployed and looking for a job?: No Are you interested in more education?: No Please select the resources that you would like help with: None Currently or been in a relationship where the following occur: I choose not to answer THRIVE Score: 0 NATE-7 AMB Questionnaire NATE-7 Date NATE - 7 assessed: 10/14/24 Feeling nervous, anxious, or on edge: 1 = Several days Not being able to stop or control worryin = Several days Worrying too much about different things: 1 = Several days Trouble relaxin = Several days Being so restless that it is hard to sit still: 1 = Several days Becoming easily annoyed or irritable: 1 = Several days Feeling afraid as if something awful might happen: 1 = Several days Total NATE-7 score (0-4 normal; 5-9 mild; 10-14 moderate; 15-21 severe): 7 Source: Developed by Drs. Khang Crain, Ronan Messer and colleagues, with an educational wilber from [employer]. Review of Systems Const All systems reviewed & are unremarkable except as noted in HPI and below Reports no additional complaints Eyes Reports no additional complaints ENT Reports no additional complaints Card Reports no additional complaints Resp Reports no additional complaints GI Reports no additional complaints Reports no additional complaints Musc Reports no additional complaints Physical exam (Primary Care) Vital Signs: Last Vital Signs Temp 98.5 F 11/17/24 08:07 Pulse 72 11/17/24 08:07 Resp 18 11/17/24 08:07 BP 118/64 11/17/24 08:07 Pulse Ox 96 11/17/24 08:07 Oxygen Delivery Method Room Air 11/17/24 08:07 BMI result Body Mass Index 37.8 Tobacco/Smoking Status: Tobacco use Status Tobacco use date assessed 11/17/24 11/17/24 08:12 Patient Tobacco Use Status Current everyday Tobacco 11/17/24 08:12 Tobacco use type Cigarette 11/17/24 08:12 e-Cigarette/Vaping Use Never Used 11/17/24 08:12 PHQ-9: PHQ-9 Score PHQ-9: Total score 17 11/17/24 08:43 Depression Screening Interpretation: Positive (Counseling and medication recommended but patient declined) Depression Screening Follow-up: Existing condition Thrive Assessment: Date of Thrive Assessment Date Thrive assessed 10/14/24 11/17/24 08:12 Currently or been in a relationship where the following occur: I choose not to answer Const General: no acute distress HENMT Head: Yes normal to inspection Ears: hearing grossly normal bilaterally Face and sinus: Yes normal facial exam Mouth: Normal oral and palatal mucosa present Throat: Yes posterior oropharynx normal Eyes General: appearance normal, both eyes and all related structures Neck Neck: Yes no lymphadenopathy and Yes supple Resp Effort & Inspection: normal respiratory effort Auscultation: clear to auscultation bilaterally Cardio Rhythm: regular rhythm Heart sounds: S1 normal heart sound present and S2 normal heart sound present GI Inspection: Yes normal to inspection Palpation (GI): Soft to palpation Percussion: Yes normal to percussion Auscultation: normal bowel sounds Back/Spine/Pelvis Other: There is decreased range of motion in the cervical spine paraspinal tenderness bilaterally, deep tendon reflexes 2+ bilaterally upper and lower extremities Extrem General: Yes no clubbing, cyanosis or edema Coding Level of Care Code Est Pt Prev Care 40-64y(70374) Diagnoses Cervical vertebral fusion M43.22 DM type 2 (diabetes mellitus, type 2) E11.9 Chronic obstructive pulmonary disease with acute lower respiratory infection J44.0 COPD type: COPD with acute lower respiratory infection Nicotine dependence, cigarettes, uncomplicated F17.210 Depression with anxiety F41.8 Annual physical exam Z00.00 Assessment & Plan Assessment & Plan (1) Cervical vertebral fusion: Comment: C3-4 -5 osseous bridging , C6-7 mod deg disc bulge, L paracental protrusion >20 yrs, seen by Dr. Harrington not a surgical candidate Code(s): M43.22 - Fusion of spine, cervical region Category: Medical Plan: Continue gabapentin lidocaine patches and tizanidine as needed. Patient is contemplating applying for disability (2) DM type 2 (diabetes mellitus, type 2): Onset Date: ~2020 Code(s): E11.9 - Type 2 diabetes mellitus without complications Category: Medical Plan: A1c is 5.9, ADA diet regular physical activity weight loss discussed with the patient. For microalbuminuria Farxiga 5 mg daily will be added to metformin. Patient will follow-up in 4 months with a fasting labs before (3) COPD (chronic obstructive pulmonary disease): Comment: mild, uses albuterol PRN only Code(s): J44.9 - Chronic obstructive pulmonary disease, unspecified Category: Medical Qualifiers: COPD type: COPD with acute lower respiratory infection Qualified Code(s): J44.0 - Chronic obstructive pulmonary disease with (acute) lower respiratory infection Plan: Continue albuterol PRN (4) Nicotine dependence, cigarettes, uncomplicated: Comment: (current smoker, onset 16, 1/2-1ppd x42yrs,30+PYH, +fam hx lung ca) Code(s): F17.210 - Nicotine dependence, cigarettes, uncomplicated Category: Medical Plan: Tobacco quitting discussed with the patient (5) Depression with anxiety: Code(s): F41.8 - Other specified anxiety disorders Category: Medical Plan: Start duloxetine 20 mg daily for depression and chronic neck pain. (6) Annual physical exam: Comment: s/p hysterectomy Code(s): Z00.00 - Encounter for general adult medical examination without abnormal findings Category: Medical Plan: Well-balanced diet regular physical activity weight loss discussed with the patient. She is up-to-date with the mammogram and due for colonoscopy next year Medications: New duloxetine 20 mg PO DAILY 90 caps 0RF Farxiga (dapagliflozin propanediol) 5 mg PO DAILY 90 tabs 1RF NS
== END 2024-11-17 09:19 | disposition home or self-care (01) ==
LOC: HO.HMCC 07:44
PROVIDERS: PCP Internal Medicine; Visit Provider Internal Medicine
DX: Z00.00 Encounter for general adult medical examination without abnormal findings (principal); E11.9 Type 2 diabetes mellitus without complications; J44.0 Chronic obstructive pulmonary disease with (acute) lower respiratory infection; M43.22 Fusion of spine, cervical region; F17.210 Nicotine dependence, cigarettes, uncomplicated; F41.8 Other specified anxiety disorders

== ENCOUNTER 2025-02-06 08:35 | Emergency (ER) | payer OTHER, SELFPAY ==
--- NOTE | ~2025-02-06 | CT_ITS ---
CLINICAL HISTORY: injury, pain, hardware eval CT cervical spine without contrast Comparison: None Findings: The anterior and posterior postsurgical fusion hardware appears intact No fracture or acute malalignment. Multilevel degenerative changes with disc space narrowing throughout the cervical spine. The facet joints are normally imbricated. No prevertebral soft tissue edema. Lung apices demonstrate no acute process. Impression: Postsurgical and degenerative changes. No acute fracture. Intact hardware This document has been electronically signed by: Baljit Oliver MD on 02/06/2025 11:42:11
--- NOTE | ~2025-02-06 | XR_ITS ---
CLINICAL HISTORY: pain, injury 3 view right elbow Comparison: None provided Findings: Bones intact. No dislocations. Mild degenerative changes. Calcification noted along the insertion of the triceps tendon No joint effusion. No radiopaque foreign body. IMPRESSION: 1. No acute findings. This document has been electronically signed by: Baljit Oliver MD on 02/06/2025 10:34:51
--- NOTE | ~2025-02-06 | XR_ITS ---
CLINICAL HISTORY: pain, injury 3 view right shoulder Comparison: None provided Findings: Bones intact. No dislocations. Mild degenerative changes of the glenohumeral and acromioclavicular joints. Soft tissue calcification noted abutting the greater tuberosity. No erosions. No radiopaque foreign body. IMPRESSION: No fracture or dislocation. This document has been electronically signed by: Baljit Oliver MD on 02/06/2025 10:34:48
--- NOTE | ~2025-02-06 | XR_ITS ---
CLINICAL HISTORY: pain, injury 3 view right wrist Comparison: None provided Findings: No fractures or dislocations. No significant arthritic change or erosions. Negative ulnar variance. No radiopaque foreign body. IMPRESSION: Negative ulnar variance. No acute fracture. This document has been electronically signed by: Baljit Oliver MD on 02/06/2025 10:35:12
--- NOTE | ~2025-02-06 | XR_ITS ---
CLINICAL HISTORY: pain, injury 3 view right hand Comparison: None provided Findings: Bones intact. No dislocations. Negative ulnar variance. No erosions. No radiopaque foreign body. IMPRESSION: No acute fracture. Negative ulnar variance. This document has been electronically signed by: Baljit Oliver MD on 02/06/2025 10:35:55
[2025-02-06 08:44] VITALS: BP 161/69; PULSE 76; RESP 16; TEMP 36.2; O2SAT 95; BMI 39.1
--- NOTE | 2025-02-06 09:05 | ED_ITS ---
HPI - Extremity Problem General Chief complaint: Extremity Injury, Upper Stated complaint: right arm cold Time Seen by Provider: 02/06/25 09:03 Source: patient Mode of arrival: ambulatory Limitations: no limitations History of Present Illness ED Provider: Rayna Vega PA-C HPI Narrative: Patient is a 59 year old female with a history of cervical radiculopathy, lumbar radiculopathy, sciatica, contact dermatitis, and DM presenting to the emergency department today with right shoulder pain and a cold sensation of the entire right upper extremity. Patient states that she was doing something in her trunk when the trunk lid began to fall. Patient states that she used her right hand to catch the trunk and has had pain ever since with this cold like sensation in the extremity. Patient states that she has a history of cervical spine fusion and is concerned that she has somehow injured her neck. Patient denies any other complaints at this time. Patient denies any other complaints at this time. Onset (ago): day(s) (5) Related Data Home Medications ?Medication ?Instructions ?Recorded ?Confirmed tizanidine 4 mg capsule (Zanaflex) 4 mg PO DAILY PRN 0 09/04/24 11/17/24 Previous Rx's ?Medication ?Instructions ?Recorded acetaminophen 500 mg tablet 1,000 mg (2 x 500 mg) PO Q ID PRN 10/29/20 (Tylenol Extra Strength) fever or pain #14 tabs ketoconazole 2 % topical cream 1 appl topical DAILY #6 0 grams 12/12/21 triamcinolone acetonide 0.025 % 1 appl topical BID #15 grams 12/26/21 topical cream albuterol sulfate 90 mcg/actuation 2 puff inhalation Q 6H PRN Wheezing 07/10/23 aerosol inhaler (ProAir HFA) #8.5 grams metformin 500 mg tablet 500 mg PO .qd #90 tabs 08/17 gabapentin 100 mg capsule 200 mg (2 x 100 mg) PO BID # 120 10/14/24 caps gabapentin 300 mg capsule See Rx Instructions PO BEDTI ME 10/14/24 #180 caps Farxiga 5 mg tablet (dapagliflozin 5 mg PO DAILY #90 t abs 01/21/25 propanediol) duloxetine 20 mg capsule,delayed 20 mg PO DAILY #90 ca ps 01/21/25 release lidocaine 5 % topical patch 2 patch topical DAILY #60 ea 01/21/25 Accu-Chek Guide Glucose Meter #1 ea 01/22/25 (blood-glucose meter) Accu-Chek Guide test strips (blood #100 ea 01/22/25 sugar diagnostic) Accu-Chek Softclix Lancets #100 ea 01/22/25 (lancets) prednisone 20 mg tablet 40 mg (2 x 20 mg) PO DAILY C OPD 02/06/25 exacerbation 5 days #10 tabs Allergies Allergy/AdvReac Type Severity Reaction Status Date / Time adhesive Allergy Intermediate Hives Verified 02/06/25 08:48 monosodium glutamate Allergy Intermediate ITCHING/HEA Verified 02/06/25 08:48 DACHE egg Allergy Diarrhea Verified 02/06/25 08:48 Review of Systems Constitutional: Constitutional: Reports as per HPI Eyes: Eyes: Reports as per HPI ENT: Reports as per HPI Cardiovascular: Cardiovascular: Reports as per HPI Respiratory: Respiratory: Reports as per HPI Gastrointestinal: Gastrointestinal: Reports as per HPI Genitourinary: Genitourinary: Reports as per HPI Musculoskeletal: Musculoskeletal: Reports as per HPI Integumentary/Breasts: Skin/Breast: Reports as per HPI Neurologic: Reports as per HPI Psychiatric: Psychiatric: Reports as per HPI Endocrine: Endocrine: Reports as per HPI Hematologic/Lymphatic: Hematologic/Lymphatic: Reports as per HPI Allergic/Immunologic: Allergic/Immunologic: Reports as per HPI [facility] Past Medical History Attestation statement: The following information was validated with the patient. Source: old records reviewed and nursing notes reviewed Medical History Annual physical exam COPD (chronic obstructive pulmonary disease) Cervical vertebral fusion Nicotine dependence, cigarettes, uncomplicated Trigger finger of right hand Hand pain, right Osteoarthritis Obesity DM type 2 (diabetes mellitus, type 2) (~2020) Polycythemia Thyroid nodule Surgical History History of partial thyroidectomy (~2023) History of cataract surgery History of hernia repair (~2001) History of vaginal hysterectomy (~2003) History of cervical discectomy (~2007) History of carpal tunnel release (~2010) History of colonoscopy (~2015) Family History Family History Father Alzheimer's dementia Mother Lung cancer Sister Lung cancer Brother Other Substance use disorder Social History Social History Household Members: Spouse and Family Household Members Other:: RH at [place], Housing: House Are you a primary daytime caregiver to a significant other at home: No Do you presently have visiting nurse or other home services: No Alcohol intake: current Alcohol intake frequency: holidays/special occasions only Patient Tobacco Use Status: Current everyday Tobacco user Tobacco use type: Cigarette Cigarette Packs Per Day: 0.75 Years Smoked: 39yrs (onset 16, 1/2-1ppd x39yrs, 30PYH) Smoked in Last 30 Days: Yes e-Cigarette/Vaping Use: Never Used Use of substances other than those prescribed or required for medical reasons: No Advance Directives: No Advance Directives Information Provided: Yes Do you have a plan to hurt others: No Plan service: No Current occupational status: unemployed Cognitive needs: No Hearing needs: No Vision needs: Yes Physical Exam Vital Signs: Vital Signs: Last Vital Signs Temp 97.9 F 02/06/25 11:42 Pulse 70 02/06/25 11:42 Resp 16 02/06/25 11:42 BP 135/67 02/06/25 11:42 Pulse Ox 95 02/06/25 11:42 O2 Del Method Room Air 02/06/25 11:42 BMI result Body Mass Index 39.1 Const: General: cooperative, no acute distress, alert and awake Nutritional Appearance: well nourished Orientation/consciousness: patient oriented x3 HEENT: Head: Yes normal to inspection and Yes atraumatic Ears: hearing grossly normal bilaterally and external ears normal General nose exam: Normal external nose present, no nasal discharge noted and no epistaxis Face and sinus: Yes normal facial exam, No abrasion and No laceration Mouth: Normal oral and palatal mucosa present, no drooling and no muffled voice Eyes: General: appearance normal, both eyes and all related structures Periorbital: periorbital findings normal Eyelids: Yes eyelids normal Conjunctivae: conjunctivae normal Pupils: Equal, round and reactive pupils present EOM: EOMs intact bilaterally Neck: Neck: Yes normal visual inspection and Yes full ROM Resp: Effort & Inspection: normal respiratory effort and able to speak in complete sentences Neuro: General: patient oriented x3, moves all extremities and CN's II-XI intact bilaterally Cranial nerves: Yes Equal, round and reactive pupils present Cognition (Neuro): normal cognition Extrem: Other: Pain with right shoulder ROM General: Yes normal to inspection and Yes capillary refill normal Psych: Appearance: grossly normal Mental Status: mental status grossly normal Affect: normal affect Attitude: cooperative Thought process: Normal thought process present Thought content: Normal thought content present Insight: Good insight present (Psych) Medications Administered Discontinued Medications Generic Name Dose Route Start Last Admin Trade Name Carson PRN Reason Stop Dose Admin Ketorolac Tromethamine 15 mg 02/06/25 09:25 02/06/25 10:13 Ketorolac Tromethamine 15 Mg/Ml Vial IM 02/06/25 09:26 15 mg ONCE ONE Administration Methylprednisolone Sodium Succinate 60 mg 02/06/25 09:25 02/06/25 10:09 Methylprednisolone Sod Succ 125 Mg/2 Ml Vial IM 02/06/25 09:26 60 mg ONCE ONE Administration Medical Decision Making Medical Decision Making MDM Narrative: Patient is a 59 year old female with a history of cervical radiculopathy, lumbar radiculopathy, sciatica, contact dermatitis, and DM presenting to the emergency department today with right shoulder pain and a cold sensation of the entire right upper extremity. Patient's physical exam was as noted in the physical exam portion of this note and most consistent with a right rotator cuff injury. Patient's right shoulder, right elbow, right hand, and right wrist x-rays showed no acute process. Patient's CT cervical spine showed no acute process or concerns with her existing hardware. Patient received IM Toradol and Solu-medrol which, upon re-evaluation, she stated it helped her symptoms some. I explained my physical exam findings as well as all test results to the patient. I answered all questions asked by the patient. I stressed the importance of the patient taking her medication as directed (either prescribed or as the over the counter packaging recommends). I stressed the importance of the patient following up with her primary care provider and the orthopedic team. I stressed the importance of the patient returning to the emergency department immediately if her symptoms were to worsen or if she were to develop any dizziness, shortness of breath, difficulty breathing, chest pain, blurry vision, loss of vision, nausea, vomiting, abdominal pain, fever, chills, back pain, or any other complaints. Patient verbalized agreement and understanding with this treatment plan and discharge. Differential Diagnosis Differential Diagnoses: The differential diagnosis associated with the presentation includes Right rotator cuff injury Right arm pain Admission/Observation Consideration of admission/observation: Escalation of care including admission/observation considered Patient would have been admitted to the hospital had her work up had any findings where hospital admission was appropriate and her clinical presentation warranted hospital admission. Independent Interpretation I performed an independent interpretation of an: Plain X-Ray and CT Scan Interpretation: My interpretation is in agreement with the radiologist's impression of these imaging studies as written below. Reason for Exam: injury, pain, hardware eval CLINICAL HISTORY: injury, pain, hardware eval CT cervical spine without contrast Comparison: None Findings: The anterior and posterior postsurgical fusion hardware appears intact No fracture or acute malalignment. Multilevel degenerative changes with disc space narrowing throughout the cervica l spine. The facet joints are normally imbricated. No prevertebral soft tissue edema. Lung apices demonstrate no acute process. Impression: Postsurgical and degenerative changes. No acute fracture. Intact hardware This document has been electronically signed by: Baljit Oliver MD on 02/06/2025 11:42:11 Dictated By: Baljit Oliver MD Signed By: Electronically signed by Baljit Oliver MD 02/06/25 1142 CLINICAL HISTORY: pain, injury 3 view right wrist Comparison: None provided Findings: No fractures or dislocations. No significant arthritic change or erosions. Negative ulnar variance. No radiopaque foreign body. IMPRESSION: Negative ulnar variance. No acute fracture. This document has been electronically signed by: Baljit Oliver MD on 02/06/2025 10:35:12 Dictated By: Baljit Oliver MD Signed By: Electronically signed by Baljit Oliver MD 02/06/25 1035 CLINICAL HISTORY: pain, injury 3 view right hand Comparison: None provided Findings: Bones intact. No dislocations. Negative ulnar variance. No erosions. No radiopaque foreign body. IMPRESSION: No acute fracture. Negative ulnar variance. This document has been electronically signed by: Baljit Oliver MD on 02/06/2025 10:35:55 Dictated By: Baljit Oliver MD Signed By: Electronically signed by Baljit Oliver MD 02/06/25 1037 CLINICAL HISTORY: pain, injury 3 view right shoulder Comparison: None provided Findings: Bones intact. No dislocations. Mild degenerative changes of the glenohumeral and acromioclavicular joints. Soft tissue calcification noted abutting the greater tuberosity. No erosions. No radiopaque foreign body. IMPRESSION: No fracture or dislocation. This document has been electronically signed by: Baljit Oliver MD on 02/06/2025 10:34:48 Dictated By: Baljit Oliver MD Signed By: Electronically signed by Baljit Oliver MD 02/06/25 1035 CLINICAL HISTORY: pain, injury 3 view right elbow Comparison: None provided Findings: Bones intact. No dislocations. Mild degenerative changes. Calcification noted along the insertion of the triceps tendon No joint effusion. No radiopaque foreign body. IMPRESSION: 1. No acute findings. This document has been electronically signed by: Baljit Oliver MD on 02/06/2025 10:34:51 Dictated By: Baljit Oliver MD Signed By: Electronically signed by Baljit Oliver MD 02/06/25 1035 Radiology Impression Discussion of test interpretation with radiology: I have reviewed the radiologist's reading. Chronic Conditions Patient?s care impacted by: Diabetes Discharge Plan Discharge Clinical Impression: Injury of right rotator cuff Qualifiers: Encounter type: initial encounter Qualified Code(s): S46.001A - Unspecified injury of muscle(s) and tendon(s) of the rotator cuff of right shoulder, initial encounter Patient Disposition: Home, Self-Care Instructions: Rotator Cuff Injury (ED), Rotator Cuff Injury Exercises (DC) Additional Instructions: Your imaging of the right upper extremity and your cervical spine showed no acute process. I am suspicious given your presentation and mechanism of injury that you have injured your right rotator cuff. As we discussed and as you know - prednisone can elevate your blood sugar, keep an eye on this. Follow up with the orthopedic team about this. Do NOT splint the right upper extremity / shoulder or you could freeze the joint and that is very difficult to recover from. Use the extremity as tolerated . IF you are prescribed home medications and/or you are taking over the counter medications at home - it is very important you continue to do so as prescribed / directed unless told otherwise by a healthcare provider. Follow up with your primary care provider. Do your best to stay well hydrated and rest. Return to the emergency department immediately if your symptoms worsen or if you develop any numbness, tingling, dizziness, shortness of breath, difficulty breathing, chest pain, blurry vision, loss of vision, nausea, vomiting, abdominal pain, fever, chills, back pain, or any other complaints. Please see the information below about our Patient Portal. If you are not yet enrolled in the [facility] Patient Portal, you will receive an enrollment email invitation following your visit to any [facility] care setting. You may also self-enroll in the Patient Portal by visiting our website: [email or web address] The following information is required to access the Patient Portal: - Your [facility] Medical Record Number - Your personal home email address (must match what is in your electronic medical record, Registration staff can assist with this) - Name - Date of Capabilities of the Patient Portal: - Message some providers - View upcoming appointments - Access your health summary, medical history, and visit history - View current conditions and allergies - View procedure and lab results - View your medications, including guidelines, side effects, and precautions - Complete pre-appointment questionnaires requested by your provider - Ready summary reports of your office visits and procedures To access the Patient Portal Mobile [employer], follow these directions: - Search [employer] in the [employer] Store or Collections Store - Download the [employer] - Search for [facility] - Enter your login/password Prescriptions: New prednisone 20 mg tablet 40 mg PO DAILY 5 Days Qty: 10 0RF No Action ketoconazole 2 % cream 1 appl topical DAILY Qty: 60 1RF metformin 500 mg tablet 500 mg PO .qd Qty: 90 3RF dapagliflozin propanediol [Farxiga] 5 mg tablet 5 mg PO DAILY Qty: 90 1RF lidocaine 5 % adhesive patch,medicated 2 patch topical DAILY Qty: 60 2RF Rx Instructions: leave on most painful area for up to 12 hrs duloxetine 20 mg capsule,delayed release(DR/EC) 20 mg PO DAILY Qty: 90 3RF (DME) blood-glucose meter [Accu-Chek Guide Glucose Meter] [facility] See Rx Instructions .ROUTE .MEDSUPPLY Qty: 1 0RF Rx Instructions: As directed (DME) Accu-Chek Guide test strips Strip See Rx Instructions .ROUTE .MEDSUPPLY Qty: 100 3RF Rx Instructions: Test blood sugar once a day (DME) lancets [Accu-Chek Softclix Lancets] [facility] [place] [facility] See Rx Instructions .ROUTE .MEDSUPPLY Qty: 100 3RF Rx Instructions: Test blood sugar once a day acetaminophen [Tylenol Extra Strength] 500 mg tablet 1,000 mg PO QID PRN (Reason: fever or pain) Qty: 14 0RF triamcinolone acetonide 0.025 % cream 1 appl topical BID Qty: 15 0RF albuterol sulfate [ProAir HFA] 90 mcg/actuation HFA aerosol inhaler 2 puff inhalation Q6H PRN (Reason: Wheezing) Qty: 8.5 6RF tizanidine [Zanaflex] 4 mg capsule 4 mg PO DAILY PRN gabapentin 100 mg capsule 200 mg PO BID Qty: 120 1RF Rx Instructions: take 2 caps in AM and lunch gabapentin 300 mg capsule See Rx Instructions PO BEDTIME Qty: 180 2RF Rx Instructions: 2 tablets at night orally bedtime; Referrals: [facility] Orthopedic Surgeons [Provider Group] Referral Note: Call to establish and follow up with the orthopedic team. Graciela Mg MD [Primary Care Provider, Internal Medicine] Print Language: Burkinan
--- OUTSIDE RECORDS SUMMARY | 2025-02-06 09:16 | XMS_ITS | Patient Health Record ---
Author Organization [facility] Address [address] [place] [id number] Care Team Providers Care Dope House Operator Helper Name Role Phone Marcia(inactive) Teofilo LARSEN Primary Care Provider U presley Osborn Jr Cullen Unavailable [phone] Reason For Referral No Information Medications Medication SIG (Take, Route, Frequency, Duration) Notes Start Date End Date Status Colyte with Flavor Packs 240 GM Solution Reconstituted As directed Orally Over the specified time.; Duration: 1 day(s) 04/13/2015 Active Social History Social History Additional Details Category Social Info Options Details Miscellaneous: Marital status: Occupation: high school home economics teacher Problems Problem Type SNOMED Code ICD Code Onset Dates Problem Status W/U Status Risk Notes Problem Rectal bleeding (61939707) Rectal bleeding (K62.5) Active confirmed Problem Colitis (95163830) Colitis (K52.9) Active confirmed Plan Of Treatment Future Test Test Name Order Date COLONOSCOPY 04/13/2015 Insurance Providers Payer Name Payer Address Payer Phone Subscriber Number Group Number Insured Name Patient Relationship to Insured Coverage Start Date Coverage End Date [facility] [address] [place], [place] [id number] TRINY BULL Self - patient is the insured Medical (General) History Medical History History ICD Code Denies [place],DM,CVA,Lung disease,renal dise ase Surgical History Surgery Date(Month/Year) disc surgery 1993,2007 hysterectomy 2004 carpal tunnel release 2008,2009 tubal ligation section
[2025-02-06 11:42] VITALS: BP 135/67; PULSE 70; RESP 16; TEMP 36.6; O2SAT 95
[2025-02-06 12:05] VITALS: BP 135/67; PULSE 70; RESP 16; TEMP 36.6; O2SAT 95
== END 2025-02-06 12:06 | disposition home or self-care (01) ==
PROVIDERS: Emergency Provider Emergency Medicine; PCP Internal Medicine
DX: S46.001A Unspecified injury of muscle(s) and tendon(s) of the rotator cuff of right shoulder, initial encounter (principal); J44.9 Chronic obstructive pulmonary disease, unspecified; E11.9 Type 2 diabetes mellitus without complications; Z72.0 Tobacco use; X50.9XXA Other and unspecified overexertion or strenuous movements or postures, initial encounter; Y93.89 Activity, other specified; Y92.89 Other specified places as the place of occurrence of the external cause; Y99.8 Other external cause status; Z98.890 Other specified postprocedural states; Z87.39 Personal history of other diseases of the musculoskeletal system and connective tissue; Z79.899 Other long term (current) drug therapy
CPT/HCPCS: 72125; 73030; 73080; 73110; 73130; 96372; 99284; J1885; J2919

== ENCOUNTER → 2025-02-06 09:12 | Outpatient (BNV) | payer OTHER, SELFPAY | PROVIDERS: PCP Internal Medicine; Visit Provider Radiology Vascular & Interventional Radiology | DX: M50.30 Other cervical disc degeneration, unspecified cervical region (principal); M25.511 Pain in right shoulder; M25.521 Pain in right elbow; M79.641 Pain in right hand; M25.531 Pain in right wrist | CPT/HCPCS: 72125; 73030; 73080; 73110; 73130 ==